=== PATIENT | male | born 1945 | race Caucasian/White ===

== ENCOUNTER → 2017-09-20 14:49 | Outpatient (CLI) | payer MEDICARE, SELFPAY ==
--- NOTE | 2017-09-20 14:51 | CT_ITS ---
STUDY: CTA CHEST REASON FOR EXAM: Male, 72 years old. Thyroidectomy. RADIATION DOSAGE (If Supplied By Facility): CTDIvol = ( 13.98 ) mGy, DLP = ( 804.88 ) mGycm TECHNIQUE: The examination was performed with the intravenous administration of 100 ml of Isovue 370 contrast material. Post-processing of the angiographic images was performed, with multiplanar reformation and 3D reconstruction. Individualized dose optimization techniques were used for this CT. COMPARISON: CT chest 07/27/2016 FINDINGS: Supraclavicular: The thyroid is surgically absent. No acute supraclavicular soft tissue process is evident. Thoracic body wall soft tissues: No acute process. Upper abdomen: Clustered small gallstones near the gallbladder neck with no inflammatory features of the gallbladder. Normal biliary tree. Mild pancreatic atrophy. No acute upper abdominal process is evident. Osseous structures: Mild kyphoscoliosis. Multilevel thoracic degenerative disc disease without stenosis. There is moderate mid to low cervical degenerative disc disease incompletely characterized, contributing to foraminal narrowing. The bones generally appear to be mildly sclerotic. This could reflect an underlying disorder of calcium metabolism. Clinically correlate. Mediastinum: Normal esophagus. No mass or lymphadenopathy. Cardiac: Normal heart size without effusion. Moderate three-vessel coronary calcifications. Aortic valve dense calcifications. Pulmonary arteries: Nondilated with no large central pulmonary bones and. Aorta: There is aneurysmal dilatation of the ascending aorta and proximal arch up to 4.4 cm with widely patent bovine cervical arch branching and minimal arch atherosclerosis. No dissection. Ectasia of the ascending aorta and the setting of aortic valve calcifications could potentially reflect the presence of aortic stenosis or underlying bicuspid aortic valve. Lungs: Punctate calcified pulmonary nodule in the deep sulcus of the left lung base. Noncalcified solid subpleural pulmonary nodule lateral left lung base 4.5 mm, stable. No suspicious lesions. Lungs are otherwise clear with mild underlying hyperlucency which may reflect mild COPD without loyd emphysematous features. The airways are normal. CT/CTA Chest W/WO Contrast IMPRESSION: Stable small left lower lobe pulmonary nodule is unchanged compared to imaging as far back as 2013. Aneurysmal ectasia of the ascending aorta and proximal arch has not substantially changed since imaging of at least 2012. Three-vessel coronary atherosclerosis and aortic valve calcifications. No other acute cardiopulmonary process is evident. Electronically Signed: Shine Marks, at 15:37 EDT Tel , Service support ,
[2017-09-20 15:00] LABS: CREATININE FINGERSTICK 1.4 mg/dL (0.70-1.30)
== END ==
PROVIDERS: Family Provider Internal Medicine; PCP Internal Medicine; Visit Provider Physician Assistant Medical
DX: I71.2 Thoracic aortic aneurysm, without rupture (principal)
CPT/HCPCS: 71275; Q9967

== ENCOUNTER → 2017-09-27 09:03 | Outpatient (CLI) | payer MEDICARE, SELFPAY ==
[2017-09-27 09:11] LABS: Bacteria 0 SEEN /hpf (None Seen); Mucous, Urine 0 SEEN /hpf (<or=2+); Red Blood Cells-Urine 0 SEEN /hpf (0-5); Squamous Epithelial Cells - UA 0 SEEN /hpf (0-5); White Blood Cells 0 SEEN /hpf (0-5)
[2017-09-27 10:18] LABS: Absolute Lymphocyte Count 1.37 X10^3/ul (0.83-4.51); Absolute Neutrophil Count 3.3 X10^3/uL (2.0-7.7); Basophil# 0.01 X10^3/uL; Basophil% 0.2 % (0-1); Eosinophil# 0.18 X10^3/uL; Eosinophils% 3.4 % (0-5); Hematocrit 35.3 % (40-54); Hemoglobin 11.4 g/dl (13.0-16.5); Lymphocyte # 1.37 X10^3/ul (4.0); Lymphocyte % 25.9 % (19-41); Mean Corp Hgb Conc 32.3 g/gl (32-36); Mean Corpuscular Hgb 29.7 pg (27.0-32.0); Mean Corpuscular Volume 91.9 fL (80-94); Mean Platelet Vol. 10.1 fl (6.2-12.0); Monocyte# 0.39 X10^3/uL; Monocyte% 7.4 % (0-10); Neutrophil # 3.33 X10^3/uL (2.7-7.7); Neutrophil % 62.9 % (47-70); Platelet Count 189 K/mm3 (150-450); RBC Distribution Width CV 14.4 % (11.6-14.6); RBC Distribution Width SD 48.4 fl (35.1-43.9); Red Blood Count 3.84 M/mm3 (4.6-6.2); White Blood Count 5.3 K/mm3 (4.4-11.0)
[2017-09-27 10:24] LABS: Color, Urine Yellow (Yellow); Glucose, Dipstick Normal (Normal); Ketone-Dipstick Negative (Negative); Leukocyte Esterase-Dipstick Negative /ul (Negative); Nitrite-Dipstick Negative (Negative); Occult Blood-Urine Negative /ul (Negative); Protein-Dipstick Negative (Negative); Urine Bilirubin Dipstick Negative (Negative); Urine Clarity Clear (Clear); Urine Urobilinogen Normal (Normal)
[2017-09-27 10:26] LABS: POSITIVE COUNT NO; POSITIVE DIFFERENTIAL NO; POSITIVE MORPHOLOGY NO
[2017-09-27 10:47] LABS: Microalbumin,Random Urine 6.7 mg/L (NO RANGE EST.); Microalbumin:Creatinine Ratio 10.6 mg/g CRE (<30 mg/g CRE)
[2017-09-27 10:50] LABS: ALB/GLOB Ratio 1.2 RATIO (0.9-2.4); AST(SGOT) 16 U/L (15-37); Alanine Aminotransfer ALT/SGPT 32 U/L (16-61); Albumin, Serum 3.7 g/dL (3.2-5.0); Alkaline Phosphatase 68 U/L (45-117); Anion Gap 5 (5-15); BUN 38 mg/dL (7-18); BUN/Creat Ratio 23.9 RATIO (10-20); Calcium,Total 8.9 mg/dL (8.5-10.1); Chloride 108 mmol/L (98-107); Cholesterol 145 mg/dL (200); Creatinine, Serum 1.59 mg/dL (0.70-1.30); EST Glomerular Filtration Rate 45 mL/min (>60); Est Glom Filt Rate - Afr Amer 55 mL/min (>60); Globulin 3.2 g/dL (2.2-4.2); Glucose 125 mg/dL (74-106); High Density Lipoprotein 41 mg/dL; PSA,Total- Diagnostic 3.41 ng/mL (0.0-4.0); Potassium 5.1 mmol/L (3.5-5.1); Protein, Total 6.9 g/dL (6.4-8.2); Sodium Level 140 mmol/L (136-145); Thyroid Stim Hormone (TSH) 0.64 uIU/mL (0.358-3.74); Triglycerides 207 mg/dL; Very Low Density Lipoprotein 41 mg/dL (5-40)
== END ==
PROVIDERS: Family Provider Internal Medicine; PCP Internal Medicine; Visit Provider Internal Medicine
DX: E03.9 Hypothyroidism, unspecified (principal); I11.9 Hypertensive heart disease without heart failure; E78.00 Pure hypercholesterolemia, unspecified; R97.20 Elevated prostate specific antigen [PSA]
CPT/HCPCS: 36415; 80053; 80061; 81001; 82043; 82570; 84153; 84443; 85025

== ENCOUNTER → 2018-04-03 08:20 | Outpatient (CLI) | payer MEDICARE, SELFPAY ==
[2017-09-05 11:03] VITALS: BMI 34.8
[2018-04-03 08:27] LABS: Bacteria 0 SEEN /hpf (None Seen); Mucous, Urine 0 SEEN /hpf (<or=2+); Red Blood Cells-Urine 0 SEEN /hpf (0-5); White Blood Cells 0 SEEN /hpf (0-5)
[2018-04-03 10:18] LABS: Absolute Lymphocyte Count 1.23 X10^3/ul (0.83-4.51); Basophil# 0.02 X10^3/uL; Basophil% 0.4 % (0-1); Eosinophil# 0.25 X10^3/uL; Eosinophils% 5.3 % (0-5); Hematocrit 38.1 % (40-54); Hemoglobin 11.9 g/dl (13.0-16.5); Lymphocyte # 1.23 X10^3/ul (4.0); Lymphocyte % 25.9 % (19-41); Mean Corp Hgb Conc 31.2 g/gl (32-36); Mean Corpuscular Hgb 29.4 pg (27.0-32.0); Mean Corpuscular Volume 94.1 fL (80-94); Mean Platelet Vol. 9.7 fl (6.2-12.0); Monocyte# 0.25 X10^3/uL; Monocyte% 5.3 % (0-10); Neutrophil # 2.98 X10^3/uL (2.7-7.7); Neutrophil % 62.7 % (47-70); Platelet Count 179 K/mm3 (150-450); RBC Distribution Width CV 14.4 % (11.6-14.6); RBC Distribution Width SD 49.2 fl (35.1-43.9); Red Blood Count 4.05 M/mm3 (4.6-6.2); White Blood Count 4.8 K/mm3 (4.4-11.0)
[2018-04-03 10:27] LABS: POSITIVE COUNT NO; POSITIVE DIFFERENTIAL NO; POSITIVE MORPHOLOGY NO
[2018-04-03 10:38] LABS: Color, Urine Yellow (Yellow); Glucose, Dipstick 1000 mg/dl (Normal); Ketone-Dipstick Negative (Negative); Leukocyte Esterase-Dipstick Negative /ul (Negative); Nitrite-Dipstick Negative (Negative); Occult Blood-Urine Negative /ul (Negative); Protein-Dipstick Negative (Negative); Urine Bilirubin Dipstick Negative (Negative); Urine Clarity Clear (Clear); Urine Urobilinogen Normal (Normal); Urine pH 6.5 (5.0 - 8.0)
[2018-04-03 10:47] LABS: Squamous Epithelial Cells - UA 0-5 SEEN /hpf (0-5)
[2018-04-03 10:52] LABS: ALB/GLOB Ratio 1.1 RATIO (0.9-2.4); AST(SGOT) 18 U/L (15-37); Alanine Aminotransfer ALT/SGPT 29 U/L (16-61); Albumin, Serum 3.7 g/dL (3.2-5.0); Alkaline Phosphatase 71 U/L (45-117); Anion Gap 8 (5-15); BUN 31 mg/dL (7-18); BUN/Creat Ratio 17.4 RATIO (10-20); Calcium,Total 8.6 mg/dL (8.5-10.1); Chloride 108 mmol/L (98-107); Cholesterol 172 mg/dL (200); Creatinine, Serum 1.78 mg/dL (0.70-1.30); EST Glomerular Filtration Rate 40 mL/min (>60); Est Glom Filt Rate - Afr Amer 48 mL/min (>60); Globulin 3.3 g/dL (2.2-4.2); Glucose 141 mg/dL (74-106); High Density Lipoprotein 42 mg/dL; Potassium 4.5 mmol/L (3.5-5.1); Sodium Level 143 mmol/L (136-145); Thyroid Stim Hormone (TSH) 1.69 uIU/mL (0.358-3.74); Triglycerides 235 mg/dL; Very Low Density Lipoprotein 47 mg/dL (5-40)
[2018-04-03 12:12] LABS: Microalbumin,Random Urine 7.8 mg/L (NO RANGE EST.); Microalbumin:Creatinine Ratio 9.2 mg/g CRE (<30 mg/g CRE)
== END ==
PROVIDERS: Family Provider Internal Medicine; PCP Internal Medicine; Referring Provider Internal Medicine; Visit Provider Internal Medicine
DX: N28.9 Disorder of kidney and ureter, unspecified (principal); E11.9 Type 2 diabetes mellitus without complications
CPT/HCPCS: 36415; 80053; 80061; 81001; 82043; 82570; 84443; 85025

== ENCOUNTER → 2018-04-25 08:46 | Outpatient (CLI) | payer MEDICARE, SELFPAY ==
[2017-09-05 11:03] VITALS: BMI 34.8
[2018-04-25 10:38] LABS: PSA,Total- Diagnostic 5.68 ng/mL (0.0-4.0)
== END ==
PROVIDERS: Family Provider Internal Medicine; PCP Internal Medicine; Referring Provider Urology; Visit Provider Urology
DX: R97.20 Elevated prostate specific antigen [PSA] (principal)
CPT/HCPCS: 36415; 84153

== ENCOUNTER → 2018-10-16 09:02 | Outpatient (CLI) | payer MEDICARE, SELFPAY ==
[2017-09-05 11:03] VITALS: BMI 34.8
[2018-10-16 09:09] LABS: Bacteria 0 SEEN /hpf (None Seen); Mucous, Urine 0 SEEN /hpf (<or=2+); Red Blood Cells-Urine 0 SEEN /hpf (0-5); White Blood Cells 0 SEEN /hpf (0-5)
[2018-10-16 09:57] LABS: Absolute Lymphocyte Count 0.98 X10^3/uL (0.83-4.51); Absolute Neutrophil Count 3.5 X10^3/uL (2.0-7.7); Basophil# 0.02 X10^3/uL; Basophil% 0.4 % (0-1); Eosinophil# 0.24 X10^3/uL; Eosinophils% 4.8 % (0-5); Hematocrit 36.7 % (40-54); Hemoglobin 11.8 g/dL (13.0-16.5); Lymphocyte # 0.98 X10^3/ul (4.0); Lymphocyte % 19.4 % (19-41); Mean Corp Hgb Conc 32.2 g/dL (32-36); Mean Corpuscular Hgb 30.6 pg (27.0-32.0); Mean Corpuscular Volume 95.1 fL (80-94); Mean Platelet Vol. 9.9 fl (6.2-12.0); Monocyte# 0.32 X10^3/uL; Monocyte% 6.3 % (0-10); NRBC Flagged by Analyzer 0 % (0-5); Neutrophil # 3.45 X10^3/uL (2.7-7.7); Neutrophil % 68.5 % (47-70); Platelet Count 158 K/mm3 (150-450); RBC Distribution Width CV 13.6 % (11.6-14.6); RBC Distribution Width SD 47.4 fl (35.1-43.9); Red Blood Count 3.86 M/mm3 (4.6-6.2)
[2018-10-16 09:58] LABS: Color, Urine Yellow (Yellow); Glucose, Dipstick 1000 mg/dl (Normal); Ketone-Dipstick Negative (Negative); Leukocyte Esterase-Dipstick Negative /ul (Negative); Nitrite-Dipstick Negative (Negative); Occult Blood-Urine Negative /ul (Negative); Protein-Dipstick Negative (Negative); Urine Bilirubin Dipstick Negative (Negative); Urine Clarity Sl. Cloudy (Clear); Urine Urobilinogen Normal (Normal)
[2018-10-16 10:05] LABS: Squamous Epithelial Cells - UA 0-5 SEEN /hpf (0-5)
[2018-10-16 10:21] LABS: Microalbumin,Random Urine 10.3 mg/L (NO RANGE EST.); Microalbumin:Creatinine Ratio 15.7 mg/g CRE (<30 mg/g CRE)
[2018-10-16 10:36] LABS: Vitamin D,25 Hydroxy 33.7 ng/mL (29.95-100.01)
[2018-10-16 10:50] LABS: ALB/GLOB Ratio 1.2 RATIO (0.9-2.4); AST(SGOT) 14 U/L (15-37); Alanine Aminotransfer ALT/SGPT 20 U/L (16-61); Albumin, Serum 3.6 g/dL (3.2-5.0); Alkaline Phosphatase 65 U/L (45-117); Anion Gap 9 (5-15); BUN 41 mg/dL (7-18); BUN/Creat Ratio 23.2 RATIO (10-20); Calcium,Total 8.7 mg/dL (8.5-10.1); Chloride 107 mmol/L (98-107); Creatinine, Serum 1.77 mg/dL (0.70-1.30); EST Glomerular Filtration Rate 40 mL/min (>60); Est Glom Filt Rate - Afr Amer 48 mL/min (>60); Globulin 3.1 g/dL (2.2-4.2); Glucose 130 mg/dL (74-106); PSA,Total- Diagnostic 4.34 ng/mL (0.0-4.0); Potassium 4.6 mmol/L (3.5-5.1); Protein, Total 6.7 g/dL (6.4-8.2); Sodium Level 141 mmol/L (136-145); T4 Free Direct 0.62 ng/dL (0.76-1.46)
[2018-10-17 16:07] LABS: CHOLESTEROL TOTAL 183 mg/dL (100-199); HDL-C 41 mg/dL (>39); HDL-P TOTAL 32.7 umol/L (>=30.5); SMALL LDL-P 415 nmol/L (<=527); TRIGLYCERIDES 277 mg/dL (0-149)
[2018-10-18 11:27] LABS: INSULIN RESISTANCE SCORE 66 (<=45); LDL SIZE 20.3 nm (>20.5); LDL-C 87 mg/dL (0-99); LDL-P 827 nmol/L (<1000)
== END ==
PROVIDERS: Family Provider Internal Medicine; PCP Internal Medicine; Referring Provider Urology; Visit Provider Urology
DX: I11.9 Hypertensive heart disease without heart failure (principal); E03.9 Hypothyroidism, unspecified; E55.9 Vitamin D deficiency, unspecified; E78.00 Pure hypercholesterolemia, unspecified; R97.20 Elevated prostate specific antigen [PSA]
CPT/HCPCS: 36415; 80053; 80061; 81001; 82043; 82306; 82570; 83704; 84153; 84439; 84443; 84481; 85025

== ENCOUNTER → 2018-11-07 13:16 | Outpatient (CLI) | payer MEDICARE, SELFPAY ==
[2018-10-18 10:10] VITALS: BMI 36.0
--- NOTE | 2018-11-07 13:19 | CT_ITS ---
STUDY: CT CHEST WITH CONTRAST REASON FOR EXAM: Male, 73 years old. Follow-up thoracic and abdominal aortic aneurysm. TECHNIQUE: Transaxial imaging was performed following intravenous administration of 100CC IV Isovue 370. Multiplanar coronal and sagittal images were reformatted. Individualized dose optimization techniques were used for this CT. COMPARISON: CTA of the chest, September 20, 2017. FINDINGS: The lungs are normal. There is no demonstrated pleural abnormality. Normal heart and pericardium. There are calcifications of the coronary arteries. Normal mediastinum. Normal hilar regions. Normal enhanced pulmonary arteries. There are calcifications at the aortic valve. The thoracic aorta demonstrates mild tortuosity and atherosclerotic changes. The ascending aorta measures 4.4 cm in diameter and tapers into the arch. There is no dissection.. There are multi-level degenerative changes of the thoracic spine. No evidence of gallstones without acute inflammatory change. The upper abdomen is otherwise grossly normal. IMPRESSION: 1. The ascending thoracic aorta measuring 4.4 cm in diameter. There is no aneurysm. 2. Mild atherosclerotic changes of the thoracic aorta and coronary arteries. 3. No evidence of pulmonary embolus. 4. No evidence for acute cardiopulmonary disease. Electronically Signed: Roberth Mclaughlin DO at 23:03 EDT Tel [phone], Service support , STUDY: CTA OF THE ABDOMINAL AORTA REASON FOR EXAM: Male, 73 years old. Follow-up abdominal aortic aneurysm. RADIATION DOSAGE (If Supplied By Facility): CTDIvol = ( 17.14 ) mGy, DLP = ( 1418.41 ) mGycm TECHNIQUE: Axial CT angiography multi-detector data acquisition was obtained from the diaphragm to the ischial tuberosities following intravenous administration of 100CC IV Isovue 370. Axial images and MIP images were reconstructed from the axial data set. Post-processing of the angiographic images was performed, with multiplanar reformation and 3D reconstruction. Individualized dose optimization techniques were used for this CT. TECHNICAL QUALITY: Good COMPARISON: CT of the chest, November 07, 2018. Descriptors of Narrowing: None (0%) Mild (< 50%) Moderate (50-70%) Severe (70-90%) Subtotal/Total Occlusion (90-100%) Non-Evaluable (technically non-diagnostic FINDINGS: Abdominal aorta: There is minimal atherosclerotic changes of the abdominal aorta. There is no evidence of dissection or aneurysm. There is no stricture. Celiac and superior mesenteric arteries: No demonstrated narrowing. Inferior mesenteric artery: No demonstrated narrowing. Right renal artery(arteries): No demonstrated narrowing. Left renal artery(arteries): Minimal atherosclerotic changes at the origin of left renal artery without significant Right common iliac artery: Minimal atherosclerotic changes without stenosis. Right external iliac artery: No demonstrated narrowing. Right internal iliac artery: Atherosclerotic changes with mild stenosis. Left common iliac artery: Mild atherosclerotic changes without stenosis. Left external iliac artery: No demonstrated narrowing. Left internal iliac artery: No demonstrated narrowing.th mild stenosis. Lung bases are clear. The heart is normal in size. Normal liver. There are multiple gallstones in otherwise normal gallbladder. There is no biliary ductal dilatation. Normal spleen. Normal pancreas. Normal adrenal glands. There are small cortical cyst right kidney without enhancing mass or renal calculi. There is no hydronephrosis. Normal right ureter. Normal left kidney. Normal left ureter. Normal IVC and retroperitoneum. Normal stomach. Normal small bowel. There is scattered colonic diverticuli without acute inflammatory change. Normal appendix. Normal urinary bladder. The prostate is enlarged with multiple brachytherapy seeds. There is no pelvic lymphadenopathy. No free air or free fluid seen within the peritoneal cavity. There is evidence of bilateral inguinal herniorrhaphies. There are degenerative changes of the lumbar spine. There is evidence of a right total hip arthroplasty. CT/CTA Abdomen W/WO Contrast IMPRESSION: 1. No evidence for abdominal aortic aneurysm or dissection. 2. Gallstones without acute cholecystitis. 3. Brachytherapy seeds within the enlarged prostate. 4. Right artificial hip. 5. Degenerative changes of the lumbar spine. Electronically Signed: Roberth Mclaughlin DO at 23:06 EDT Tel [phone], Service support ,
--- NOTE | 2018-11-07 13:24 | CT_ITS ---
STUDY: CT CHEST WITH CONTRAST REASON FOR EXAM: Male, 73 years old. Follow-up thoracic and abdominal aortic aneurysm. TECHNIQUE: Transaxial imaging was performed following intravenous administration of 100CC IV Isovue 370. Multiplanar coronal and sagittal images were reformatted. Individualized dose optimization techniques were used for this CT. COMPARISON: CTA of the chest, September 20, 2017. FINDINGS: The lungs are normal. There is no demonstrated pleural abnormality. Normal heart and pericardium. There are calcifications of the coronary arteries. Normal mediastinum. Normal hilar regions. Normal enhanced pulmonary arteries. There are calcifications at the aortic valve. The thoracic aorta demonstrates mild tortuosity and atherosclerotic changes. The ascending aorta measures 4.4 cm in diameter and tapers into the arch. There is no dissection.. There are multi-level degenerative changes of the thoracic spine. No evidence of gallstones without acute inflammatory change. The upper abdomen is otherwise grossly normal. IMPRESSION: 1. The ascending thoracic aorta measuring 4.4 cm in diameter. There is no aneurysm. 2. Mild atherosclerotic changes of the thoracic aorta and coronary arteries. 3. No evidence of pulmonary embolus. 4. No evidence for acute cardiopulmonary disease. Electronically Signed: Roberth Mclaughlin DO at 23:03 EDT Tel [phone], Service support , STUDY: CTA OF THE ABDOMINAL AORTA REASON FOR EXAM: Male, 73 years old. Follow-up abdominal aortic aneurysm. RADIATION DOSAGE (If Supplied By Facility): CTDIvol = ( 17.14 ) mGy, DLP = ( 1418.41 ) mGycm TECHNIQUE: Axial CT angiography multi-detector data acquisition was obtained from the diaphragm to the ischial tuberosities following intravenous administration of 100CC IV Isovue 370. Axial images and MIP images were reconstructed from the axial data set. Post-processing of the angiographic images was performed, with multiplanar reformation and 3D reconstruction. Individualized dose optimization techniques were used for this CT. TECHNICAL QUALITY: Good COMPARISON: CT of the chest, November 07, 2018. Descriptors of Narrowing: None (0%) Mild (< 50%) Moderate (50-70%) Severe (70-90%) Subtotal/Total Occlusion (90-100%) Non-Evaluable (technically non-diagnostic FINDINGS: Abdominal aorta: There is minimal atherosclerotic changes of the abdominal aorta. There is no evidence of dissection or aneurysm. There is no stricture. Celiac and superior mesenteric arteries: No demonstrated narrowing. Inferior mesenteric artery: No demonstrated narrowing. Right renal artery(arteries): No demonstrated narrowing. Left renal artery(arteries): Minimal atherosclerotic changes at the origin of left renal artery without significant Right common iliac artery: Minimal atherosclerotic changes without stenosis. Right external iliac artery: No demonstrated narrowing. Right internal iliac artery: Atherosclerotic changes with mild stenosis. Left common iliac artery: Mild atherosclerotic changes without stenosis. Left external iliac artery: No demonstrated narrowing. Left internal iliac artery: No demonstrated narrowing.th mild stenosis. Lung bases are clear. The heart is normal in size. Normal liver. There are multiple gallstones in otherwise normal gallbladder. There is no biliary ductal dilatation. Normal spleen. Normal pancreas. Normal adrenal glands. There are small cortical cyst right kidney without enhancing mass or renal calculi. There is no hydronephrosis. Normal right ureter. Normal left kidney. Normal left ureter. Normal IVC and retroperitoneum. Normal stomach. Normal small bowel. There is scattered colonic diverticuli without acute inflammatory change. Normal appendix. Normal urinary bladder. The prostate is enlarged with multiple brachytherapy seeds. There is no pelvic lymphadenopathy. No free air or free fluid seen within the peritoneal cavity. There is evidence of bilateral inguinal herniorrhaphies. There are degenerative changes of the lumbar spine. There is evidence of a right total hip arthroplasty. CT/Chest WITH Contrast IMPRESSION: 1. No evidence for abdominal aortic aneurysm or dissection. 2. Gallstones without acute cholecystitis. 3. Brachytherapy seeds within the enlarged prostate. 4. Right artificial hip. 5. Degenerative changes of the lumbar spine. Electronically Signed: Roberth Mclaughlin DO at 23:06 EDT Tel [phone], Service support ,
--- NOTE | 2018-11-07 13:46 | ECHOCS_ITS ---
Reason For Study: MURMUR Procedure This was a 2D Doppler, Color Flow transthoracic echocardiogram. The study was technically difficult. Contrast injection was performed. Exam performed in department. Left Ventricle Normal LV size. Moderate to severe concentric LVH. Left ventricular systolic function is normal. The estimated ejection fraction is 60 %. There is evidence of diastolic dysfunction. No regional wall motion abnormalities noted. Right Ventricle Normal RV size. Normal systolic function. Atria The left atrium is mildly enlarged. Normal right atrium. No doppler evidence for ASD. Mitral Valve There is no mitral annular calcification. Anterior leaflet diffuse mitral valve thickening. Mild focal mitral valve calcification of the anterior leaflet. Trivial mitral valve insufficiency. Tricuspid Valve Normal tricuspid valve. Trivial tricuspid valve insufficiency. Unable to estimate RV systolic pressure/pulmonary artery pressure due to technically difficult study. Aortic Valve Trisinus/trileaflet aortic valve. Mild diffuse aortic valve thickening. Mild diffuse aortic valve calcification. Moderate aortic stenosis. Mild (1+) aortic valve insufficiency. Pulmonic Valve The pulmonic valve is not well visualized. Trivial pulmonic valve insufficiency. Great Vessels Moderately dilated aortic root. Pericardium/Pleural No pericardial effusion. Medication 22 gauge I.V. with prn adaptor inserted into right arm. Diluted definity 4ml given slow IV push to enhance endocardial definition. MMode/2D Measurements & Calculations LVIDd: 3.9 cm IVSd: 2.0 cm LVOT diam: 2.0 cm LVIDs: 3.7 cm LVPWd: 1.4 cm RVDd: 3.2 cm FS: 4.8 % LVOT area: 3.1 cm2 Ao root diam: 4.5 cm LAV(MOD-bp): 92.3 ml LVAd ap4: 40.2 cm2 LAV(MOD-bp) Indexed: 37.8 ml/m2 EDV(MOD-sp4): 137.0 ml LAV(MOD-sp2): 86.7 ml EDV(sp4-el): 147.0 ml LAV(MOD-sp4): 97.2 ml LVAs ap4: 21.9 cm2 ESV(MOD-sp4): 52.9 ml ESV(sp4-el): 55.3 ml EF(MOD-sp4): 61.4 % EF(sp4-el): 62.4 % SV(MOD-sp4): 84.1 ml SV(sp4-el): 91.7 ml LA A4 area: 28.9 cm2 LA dimension(2D): 3.8 cm RA A4 area: 19.4 cm2 Time Measurements MV dec time: 0.38 sec Doppler Measurements & Calculations MV E max vasiliy: 78.6 cm/sec Lat Peak E' Vasiliy: 8.4 cm/sec Med Peak E' Vasiliy: 5.7 cm/sec MV A max vasiliy: 97.8 cm/sec E/E' lat: 9.4 E/E' med: 13.7 MV E/A: 0.80 Ao V2 max: 334.1 cm/sec AI max vasiliy: 389.4 cm/sec LV V1 max: 123.8 cm/sec Ao max P.8 mmHg AI max P.6 mmHg LV V1 max P.1 mmHg Ao V2 mean: 259.0 cm/sec AI dec slope: 226.4 cm/sec2 LV V1 mean P.4 mmHg Ao mean P.8 mmHg AI P1/2t: 503.8 msec LV V1 mean: 86.5 cm/sec Ao V2 VTI: 80.4 cm LV V1 VTI: 30.1 cm CHEMA(I,D): 1.2 cm2 CHEMA(V,D): 1.2 cm2 SV(LVOT): 93.4 ml PA V2 max: 95.1 cm/sec Interpretation Summary The study was technically difficult. Contrast injection was performed. Left ventricular systolic function is normal. The estimated ejection fraction is 60 %. Moderate to severe concentric LVH. The left atrium is mildly enlarged. Anterior leaflet diffuse mitral valve thickening. Mild focal mitral valve calcification of the anterior leaflet. Trivial mitral valve insufficiency. Trivial tricuspid valve insufficiency. Moderate aortic stenosis. Mild (1+) aortic valve insufficiency. Trivial pulmonic valve insufficiency. Moderately dilated aortic root. Unable to estimate RV systolic pressure/pulmonary artery pressure due to technically difficult study. There is evidence of diastolic dysfunction. Ordering Physician: Lance Phillips Referring Physician: LINDA NICOLE Performed By: Carrol Tenorio, RDCS, RVT
== END ==
PROVIDERS: Family Provider Internal Medicine; PCP Internal Medicine; Referring Provider Internal Medicine Cardiovascular Disease; Visit Provider Internal Medicine Cardiovascular Disease
DX: I25.10 Atherosclerotic heart disease of native coronary artery without angina pectoris (principal); I71.2 Thoracic aortic aneurysm, without rupture
CPT/HCPCS: 71260; 74175; 93306; Q9957; Q9967; A4216; C8929

== ENCOUNTER → 2018-12-06 12:05 | Outpatient (CLI) | payer MEDICARE, SELFPAY ==
[2018-10-18 10:10] VITALS: BMI 36.0
== END ==
PROVIDERS: Family Provider Internal Medicine; PCP Internal Medicine; Visit Provider Nurse Practitioner Adult Health
DX: R82.998 Other abnormal findings in urine (principal); R30.0 Dysuria
CPT/HCPCS: 87077; 87086; 87088; 87186

== ENCOUNTER → 2019-02-05 10:26 | Outpatient (CLI) | payer MEDICARE, SELFPAY ==
[2018-10-18 10:10] VITALS: BMI 36.0
[2019-02-05 12:31] LABS: PSA,Total- Diagnostic 5.71 ng/mL (0.0-4.0)
== END ==
PROVIDERS: Family Provider Internal Medicine; PCP Internal Medicine; Referring Provider Urology; Visit Provider Urology
DX: R97.20 Elevated prostate specific antigen [PSA] (principal)
CPT/HCPCS: 36415; 84153

== ENCOUNTER → 2019-07-31 08:20 | Outpatient (CLI) | payer MEDICARE, SELFPAY ==
[2018-10-18 10:10] VITALS: BMI 36.0
[2019-07-31 10:00] LABS: Absolute Lymphocyte Count 1.26 X10^3/uL (0.83-4.51); Basophil# 0.04 X10^3/uL; Basophil% 0.7 % (0-1); Eosinophil# 0.35 X10^3/uL; Eosinophils% 5.8 % (0-5); Hematocrit 37.3 % (40-54); Hemoglobin 11.6 g/dL (13.0-16.5); Lymphocyte # 1.26 X10^3/ul (4.0); Lymphocyte % 20.8 % (19-41); Mean Corp Hgb Conc 31.1 g/dL (32-36); Mean Corpuscular Hgb 29.4 pg (27.0-32.0); Mean Corpuscular Volume 94.4 fL (80-94); Mean Platelet Vol. 10.2 fl (6.2-12.0); Monocyte# 0.43 X10^3/uL; Monocyte% 7.1 % (0-10); NRBC Flagged by Analyzer 0 % (0-5); Neutrophil # 3.96 X10^3/uL (2.7-7.7); Neutrophil % 65.1 % (47-70); Platelet Count 186 K/mm3 (150-450); RBC Distribution Width CV 14.5 % (11.6-14.6); RBC Distribution Width SD 49.7 fl (35.1-43.9); Red Blood Count 3.95 M/mm3 (4.6-6.2); White Blood Count 6.1 K/mm3 (4.4-11.0)
[2019-07-31 10:11] LABS: Vitamin D,25 Hydroxy 54.4 ng/mL
[2019-07-31 10:33] LABS: ALB/GLOB Ratio 1.1 RATIO (0.9-2.4); AST(SGOT) 14 U/L (15-37); Alanine Aminotransfer ALT/SGPT 19 U/L (16-61); Albumin, Serum 3.6 g/dL (3.2-5.0); Alkaline Phosphatase 65 U/L (45-117); Anion Gap 7 (5-15); BUN 38 mg/dL (7-18); BUN/Creat Ratio 21.5 RATIO (10-20); Calcium,Total 8.8 mg/dL (8.5-10.1); Chloride 107 mmol/L (98-107); Cholesterol 162 mg/dL (200); Creatinine, Serum 1.77 mg/dL (0.70-1.30); EST Glomerular Filtration Rate 40 mL/min (>60); Est Glom Filt Rate - Afr Amer 48 mL/min (>60); Globulin 3.2 g/dL (2.2-4.2); Glucose 151 mg/dL (74-106); High Density Lipoprotein 39 mg/dL; PSA,Total- Diagnostic 5.15 ng/mL (0.0-4.0); Potassium 4.7 mmol/L (3.5-5.1); Protein, Total 6.8 g/dL (6.4-8.2); Sodium Level 141 mmol/L (136-145); Thyroid Stim Hormone (TSH) 0.79 uIU/mL (0.358-3.74); Triglycerides 268 mg/dL; Very Low Density Lipoprotein 54 mg/dL (5-40)
[2019-07-31 10:35] LABS: Microalbumin:Creatinine Ratio 21.7 mg/g CRE (<30 mg/g CRE)
== END ==
PROVIDERS: PCP Internal Medicine; Referring Provider Internal Medicine; Visit Provider Internal Medicine
DX: E55.9 Vitamin D deficiency, unspecified (principal); E03.9 Hypothyroidism, unspecified; R97.20 Elevated prostate specific antigen [PSA]; E11.65 Type 2 diabetes mellitus with hyperglycemia
CPT/HCPCS: 36415; 80053; 80061; 82043; 82306; 82570; 84153; 84443; 85025

== ENCOUNTER → 2019-10-26 08:18 | Outpatient (CLI) | payer MEDICARE, SELFPAY ==
[2019-10-19 09:09] VITALS: BMI 34.0
--- NOTE | 2019-10-26 08:51 | CT_ITS ---
STUDY: CT CHEST WITH CONTRAST REASON FOR EXAM: Male, 74 years old. TAA-yearly check. Hx of diabetes and HTN-both rx controlled. Heart stent RADIATION DOSAGE (If Supplied By Facility): CTDIvol = ( 16.93 ) mGy, DLP = ( 697.42 ) mGycm TECHNIQUE: Transaxial imaging was performed following intravenous administration of IV 100mL Isovue-370. Multiplanar coronal and sagittal images were reformatted. Individualized dose optimization techniques were used for this CT. COMPARISON: Including November 07, 2018 and July 08, 2015 FINDINGS: There is no focal infiltrate in the lungs. There is mild basilar atelectasis. There is a 0.4 cm subpleural nodule in the left mid chest. There are left lung granulomas. There is no demonstrated pleural abnormality. There are calcifications of the coronary arteries and endovascular stents. There are aortic valvular calcifications. Normal mediastinum. Normal hilar regions. Normal enhanced pulmonary arteries. There is atherosclerotic calcification of the aortic arch with tortuosity and elongation of the aortic arch and descending thoracic aorta. There is stable aneurysmal dilatation of the ascending aorta. The transverse diameter of the ascending aorta measures 48 mm''s. There are multi-level degenerative changes of the thoracic spine. There is degenerative change of the shoulders. There is splenomegaly. CT/Chest WITH Contrast IMPRESSION: Stable aneurysmal dilatation of the ascending aorta. Atherosclerotic calcifications. Granulomatous calcifications. Electronically Signed: Reji Christian MD at 9:51 EDT , Service support ,
[2019-10-26 09:00] LABS: CREATININE FINGERSTICK 1.4 mg/dL (0.70-1.30)
== END ==
PROVIDERS: PCP Internal Medicine; Referring Provider Internal Medicine Cardiovascular Disease; Visit Provider Internal Medicine Cardiovascular Disease
DX: I71.2 Thoracic aortic aneurysm, without rupture (principal); I25.10 Atherosclerotic heart disease of native coronary artery without angina pectoris; I35.0 Nonrheumatic aortic (valve) stenosis; I10 Essential (primary) hypertension; E78.00 Pure hypercholesterolemia, unspecified; Z95.5 Presence of coronary angioplasty implant and graft
CPT/HCPCS: 71260; Q9967

== ENCOUNTER → 2019-11-06 08:49 | Outpatient (CLI) | payer MEDICARE, SELFPAY ==
[2019-10-19 09:09] VITALS: BMI 34.0
--- NOTE | 2019-11-06 08:53 | ECHOCS_ITS ---
Reason For Study: Murmur Procedure This was a 2D Doppler, Color Flow transthoracic echocardiogram. The study was technically difficult. Contrast injection was performed. Exam performed in department. Left Ventricle Normal LV size. Severe concentric left ventricular hypertrophy. Left ventricular systolic function is normal. The estimated ejection fraction is 55 %. Diastolic function is indeterminate. No regional wall motion abnormalities noted. Right Ventricle Normal RV size. Normal systolic function. Atria The left atrium is mildly enlarged. Normal right atrium. No doppler evidence for ASD. Mitral Valve There is no mitral annular calcification. Anterior leaflet diffuse mitral valve thickening. Mild focal mitral valve calcification of the anterior leaflet. Trivial mitral valve insufficiency. Tricuspid Valve Normal tricuspid valve. Trivial tricuspid valve insufficiency. Unable to estimate RV systolic pressure/pulmonary artery pressure due to technically difficult study. Aortic Valve Trisinus/trileaflet aortic valve. Mild diffuse aortic valve thickening. Moderate diffuse aortic valve calcification. Moderate to severe aortic valve stenosis. Mild (1+) aortic valve insufficiency. Pulmonic Valve The pulmonic valve is not well visualized. Great Vessels Moderately dilated aortic root. Pericardium/Pleural No pericardial effusion. Medication 22 gauge I.V. with prn adaptor inserted into right arm. Diluted definity 3ml given slow IV push to enhance endocardial definition. MMode/2D Measurements & Calculations LVIDd: 5.0 cm IVSd: 1.6 cm LVOT diam: 2.0 cm LVIDs: 3.8 cm LVPWd: 1.5 cm RVDd: 3.7 cm FS: 23.5 % LVOT area: 3.2 cm2 Ao root diam: 4.5 cm LAV(MOD-bp): 60.6 ml LA A4 area: 20.1 cm2 LA dimension: 3.6 cm LAV(MOD-bp) Indexed: 25.6 ml/m2 LAV(MOD-sp2): 63.7 ml LAV(MOD-sp4): 50.5 ml RA A4 area: 15.9 cm2 Time Measurements MV dec time: 0.29 sec Doppler Measurements & Calculations MV E max vasiliy: 55.9 cm/sec Lat Peak E' Vasiliy: 8.3 cm/sec Med Peak E' Vasiliy: 5.6 cm/sec MV A max vasiliy: 84.6 cm/sec E/E' lat: 6.8 E/E' med: 10.1 MV E/A: 0.66 MV V2 max: 98.4 cm/sec MV P1/2t max vasiliy: 83.3 cm/sec Ao V2 max: 389.5 cm/sec MV max P.9 mmHg MV P1/2t: 81.2 msec Ao max P.7 mmHg MV V2 mean: 50.2 cm/sec MV dec slope: 300.4 cm/sec2 Ao V2 mean: 282.3 cm/sec MV mean P.3 mmHg Ao mean P.8 mmHg MV V2 VTI: 29.1 cm MVA(P1/2t): 2.7 cm2 Ao V2 VTI: 102.0 cm MVA(VTI): 2.6 cm2 CHEMA(I,D): 0.74 cm2 CHEMA(V,D): 0.80 cm2 AI max vasiliy: 385.7 cm/sec LV V1 max: 96.9 cm/sec SV(LVOT): 75.4 ml AI max P.5 mmHg LV V1 max P.8 mmHg AI dec slope: 179.6 cm/sec2 LV V1 mean P.9 mmHg AI P1/2t: 628.9 msec LV V1 mean: 63.9 cm/sec LV V1 VTI: 23.4 cm PA V2 max: 85.4 cm/sec Interpretation Summary The study was technically difficult. Contrast injection was performed. Left ventricular systolic function is normal. The estimated ejection fraction is 55 %. Severe concentric left ventricular hypertrophy. The left atrium is mildly enlarged. Anterior leaflet diffuse mitral valve thickening. Mild focal mitral valve calcification of the anterior leaflet. Trivial mitral valve insufficiency. Trivial tricuspid valve insufficiency. Moderate to severe aortic valve stenosis. Mild (1+) aortic valve insufficiency. Moderately dilated aortic root. (approximately 4.5 cm) Unable to estimate RV systolic pressure/pulmonary artery pressure due to technically difficult study. Diastolic function is indeterminate. Ordering Physician: Lance Phillips Referring Physician: Anette Helton M.D. Performed By: Surinder Lechuga RCS
== END ==
PROVIDERS: PCP Internal Medicine; Referring Provider Internal Medicine Cardiovascular Disease; Visit Provider Internal Medicine Cardiovascular Disease
DX: I25.10 Atherosclerotic heart disease of native coronary artery without angina pectoris (principal); I71.2 Thoracic aortic aneurysm, without rupture; I35.0 Nonrheumatic aortic (valve) stenosis; I10 Essential (primary) hypertension; E78.00 Pure hypercholesterolemia, unspecified; Z95.5 Presence of coronary angioplasty implant and graft
CPT/HCPCS: 93306; Q9957; A4216; C8929

== ENCOUNTER → 2020-02-08 08:31 | Outpatient (CLI) | payer MEDICARE, SELFPAY ==
[2019-11-07 11:29] VITALS: BMI 33.7
[2020-02-08 10:13] LABS: Color, Urine Yellow (Yellow); Glucose, Dipstick 1000 mg/dl (Normal); Ketone-Dipstick Negative (Negative); Leukocyte Esterase-Dipstick 500 /ul (Negative); Nitrite-Dipstick Positive (Negative); Occult Blood-Urine 25 /ul (Negative); Protein-Dipstick 30 mg/dl (Negative); Urine Bilirubin Dipstick Negative (Negative); Urine Clarity Cloudy (Clear); Urine Urobilinogen Normal (Normal); Urine pH 6.5 (5.0 - 8.0)
[2020-02-08 10:14] LABS: Absolute Lymphocyte Count 1.45 X10^3/uL (0.83-4.51); Absolute Neutrophil Count 3.9 X10^3/uL (2.0-7.7); Basophil# 0.03 X10^3/uL; Basophil% 0.5 % (0-1); Eosinophils% 4.9 % (0-5); Hematocrit 41.2 % (40-54); Hemoglobin 13.1 g/dL (13.0-16.5); Lymphocyte # 1.45 X10^3/ul (4.0); Lymphocyte % 23.6 % (19-41); Mean Corp Hgb Conc 31.8 g/dL (32-36); Mean Corpuscular Hgb 30.5 pg (27.0-32.0); Mean Corpuscular Volume 95.8 fL (80-94); Mean Platelet Vol. 10.5 fl (6.2-12.0); Monocyte# 0.45 X10^3/uL; Monocyte% 7.3 % (0-10); NRBC Flagged by Analyzer 0 % (0-5); Neutrophil # 3.85 X10^3/uL (2.7-7.7); Neutrophil % 62.7 % (47-70); Platelet Count 184 K/mm3 (150-450); RBC Distribution Width CV 13.5 % (11.6-14.6); RBC Distribution Width SD 47.8 fl (35.1-43.9); White Blood Count 6.1 K/mm3 (4.4-11.0)
[2020-02-08 10:29] LABS: Vitamin D,25 Hydroxy 52.5 ng/mL
[2020-02-08 10:38] LABS: ALB/GLOB Ratio 1.2 RATIO (0.9-2.4); AST(SGOT) 13 U/L (15-37); Alanine Aminotransfer ALT/SGPT 22 U/L (16-61); Albumin, Serum 3.7 g/dL (3.2-5.0); Alkaline Phosphatase 86 U/L (45-117); Anion Gap 6 (5-15); BUN 46 mg/dL (7-18); BUN/Creat Ratio 22.1 RATIO (10-20); Calcium,Total 8.7 mg/dL (8.5-10.1); Chloride 105 mmol/L (98-107); Cholesterol 207 mg/dL (200); Creatinine, Serum 2.08 mg/dL (0.70-1.30); EST Glomerular Filtration Rate 33 mL/min (>60); Est Glom Filt Rate - Afr Amer 40 mL/min (>60); Globulin 3.2 g/dL (2.2-4.2); Glucose 190 mg/dL (74-106); High Density Lipoprotein 40 mg/dL; Potassium 4.5 mmol/L (3.5-5.1); Protein, Total 6.9 g/dL (6.4-8.2); Sodium Level 139 mmol/L (136-145); Thyroid Stim Hormone (TSH) 1.71 uIU/mL (0.358-3.74); Triglycerides 477 mg/dL
[2020-02-08 10:53] LABS: Microalbumin,Random Urine 56.2 mg/L (NO RANGE EST.); Microalbumin:Creatinine Ratio 80.2 mg/g CRE (<30 mg/g CRE)
[2020-02-08 13:28] LABS: Mucous, Urine 0 SEEN /hpf (<or=2+)
[2020-02-08 13:59] LABS: Red Blood Cells-Urine 10-25 SEEN /hpf (0-5); White Blood Cells >100 SEEN /hpf (0-5)
[2020-02-08 14:00] LABS: Bacteria 1+ /hpf (None Seen); Squamous Epithelial Cells - UA 0-5 SEEN /hpf (0-5)
== END ==
PROVIDERS: PCP Internal Medicine; Referring Provider Internal Medicine; Visit Provider Internal Medicine
DX: E78.00 Pure hypercholesterolemia, unspecified (principal); E55.9 Vitamin D deficiency, unspecified; E11.65 Type 2 diabetes mellitus with hyperglycemia; E03.9 Hypothyroidism, unspecified
CPT/HCPCS: 36415; 80053; 80061; 81001; 81002; 82043; 82306; 82570; 84443; 85025

== ENCOUNTER → 2020-09-01 10:54 | Outpatient (CLI) | payer MEDICARE, SELFPAY ==
[2019-11-07 11:29] VITALS: BMI 33.7
[2020-09-01 11:09] LABS: Potassium 4.6 mmol/L (3.5-5.1)
== END ==
PROVIDERS: PCP Internal Medicine; Visit Provider Internal Medicine
DX: E87.5 Hyperkalemia (principal)
CPT/HCPCS: 84132

== ENCOUNTER 2020-12-25 10:24 | Day surgery (SDC) | payer MEDICARE, SELFPAY ==
[2020-12-25] VITALS (7 sets, daily range): BP systolic 108–120; BP diastolic 56–69; PULSE 60–80; RESP 16–18; TEMP 36.3–36.9; O2SAT 97–100; BMI 32.2
[2020-12-25] MEDS: Lactated Ringers 1,000 ML 100 ML IV (11:09)
--- NOTE | 2020-12-25 11:30 | IMM_PTH ---
PATIENT: NICK NAVARRO LOC: EN U#:[id number] AGE/SX: 75/M ROOM: RE12/25/[address]: Dr. Feliberto Castro DO : 1945 BED: DIS: 12/25/2020 SPEC #: [id number] RECD: 12/26/20 09:56 STATUS: OLAYINKA REQ #: [id number] ESTELA: 12/25/20 11:[address]: Feliberto Castro DEPT: IMMUNOHISTOCHEMISTRY RECD BY: Rosalie Mcclellan ENTERED: 12/26/20 09:57 SP TYPE: IMMUNO OTHR DR: Dr. Anette Helton DO Tissues: A - Stomach, NOS Procedures: H Pylori (initial) PHYSICIAN & INSTITUTION [place] [id number] SPECIMEN INFORMATION: Tissue Source: B ? Gastric antrum Clinical Info: Abdominal pain, bloating, diarrhea Specimen Number: [id number] CPT code: 36120 METHODOLOGY: Deparaffinized sections of prefer/formalin-fixed tissue or PAP/DQ stained slides are incubated with monoclonal/polyclonal antibodies/oligonucleotide probes. Localization is made via biotin free immunoperoxidase method. Appropriate controls are performed and reacted as expected. Results on target cell population are indicated in the following table: RESULTS: ANTIBODY / CLONE RESULT Block B H Pylori (polyclonal) negative These tests were developed and their performance characteristics determined by [facility]. They may not have been cleared or approved by the U.S. Food and Drug Administration. The FDA has determined that such clearance or approval is not necessary. INTERPRETATION: B. Gastric antrum, biopsy: Negative for Helicobacter pylori organisms. AM:sanjeev 12/29/2020
--- NOTE | 2020-12-25 11:30 | EGD_PTH ---
PATIENT: NICK NAVARRO LOC: EN U#:[id number] AGE/SX: 75/M ROOM: RE12/25/[address]: Dr. Feliberto Castro DO : 1945 BED: DIS: 12/25/2020 SPEC #: [id number] RECD: 12/25/20 15:14 STATUS: OLAYINKA REMayo #: [id number] ESTELA: 12/25/20 11:[address]: Feliberto Castro DEPT: SURGICAL PATHOLOGY RECD BY: Melvi Goldsmith ENTERED: 12/26/20 08:55 SP TYPE: EGD BIOPSY FRANK DR: Dr. Anette Helton DO Tissues: A - Duodenum, NOS B - Gastric mucous membrane C - COLON BIOPSY Procedures: Surgery Specimen Level IV HEADER OPERATION[place] [place] [facility] [place] DIAGNOSIS: Abdominal pain, bloating, diarrhea TISSUE SUBMITTED: A ? Duodenum biopsy, B ? Gastritis gastric antrum for H. pylori and path, C ? Random colon biopsies MICROSCOPIC DIAGNOSIS A. Duodenum, biopsy: No pathologic change. B. Gastric antrum, biopsy: Mild chronic gastritis. See comment. C. Colon, random biopsy: Changes suggestive of lymphocytic colitis. AM:sanjeev 12/29/2020 COMMENT B. The results of immunohistochemistry for Helicobacter pylori will be reported separately ([id number]). MICROSCOPIC DESCRIPTION Slides are reviewed. GROSS DESCRIPTION A - Received in fixative is one container labeled with the patient's name and designated duodenum biopsy. The specimen consists of one irregular fragment of light rod soft tissue that measures 0.3 x 0.3 x 0.1 cm. The specimen is totally submitted in one cassette. B - Received in fixative is one container labeled with the patient's name and designated gastritis gastric antrum biopsy. The specimen consists of two irregular fragments of light rod soft tissue that in aggregate measure 0.6 x 0.3 x 0.1 cm. The specimen is totally submitted in one cassette. C - Received in fixative is one container labeled with the patient's name and designated random colon biopsy. The specimen consists of multiple irregular fragments of light rod soft tissue that in aggregate measure 2 x 0.5 x 0.1 cm. The specimen is totally submitted in one cassette. / LIZZIE:sanjeev 12/26/20 TC:3 CPT: 52219 x3
--- NOTE | 2020-12-25 13:07 | HP.PCM_ITS ---
History and Physical Date of Admission: 12/25/20 uvaldo Signs 12/12/20 10:11 Height 6 ft 1 in Weight: 253 lb 8 oz BMI 33.4 Intake Visit Reasons: constipation,diarrhea Chief Complaint: dizziness Allergies atorvastatin [From Lipitor] Adverse Reaction (Severe, Verified 12/12/20 10:06) Myalgias simvastatin [From Zocor] Adverse Reaction (Severe, Verified 12/12/20 10:06) Myalgias Medications allopurinol 300 mg PO DAILY 12/05/12 [History Confirmed 12/12/20] aspirin 81 mg PO DAILY@0800 12/05/12 [History Confirmed 12/12/20] clopidogrel 75 mg PO DAILY 12/05/12 [History Confirmed 12/12/20] metoprolol succinate 50 mg PO DAILY 12/05/12 [History Confirmed 12/12/20] multivitamin with folic acid 1 tab PO DAILY 12/05/12 [History Confirmed 12/12/20] omega-3 fatty acids 500 mg PO DAILY 12/05/12 [History Confirmed 12/12/20] triamterene-hydrochlorothiazid 1.5 tab PO DAILY 12/05/12 [History Confirmed 12/12/20] alfuzosin 10 mg PO DAILY 09/16/16 [History Confirmed 12/12/20] meclizine 12.5 mg PO DAILY PRN PRN 09/16/16 [History Confirmed 12/12/20] tramadol 50 mg PO DAILY PRN 09/16/16 [History Confirmed 12/12/20] dulaglutide 0.75 mg/0.5 mL subcutaneous pen injector 0.75 mg SC QWEEK 09/05/17 [History Confirmed 12/12/20] finasteride 5 mg tablet 5 mg PO QDAY 09/05/17 [History Confirmed 12/12/20] metformin 750 mg tablet,extended release 24 hr 750 mg PO BID tab 10/18/18 [History Confirmed 12/12/20] lisinopril 20 mg tablet 10 mg PO QDAY tab 10/19/19 [History Confirmed 12/12/20] rosuvastatin 40 mg tablet 40 mg PO QHS #90 tab 11/09/19 [Rx Confirmed 12/12/20] cholecalciferol (vitamin D3) 10 mcg (400 unit) tablet 10 mcg PO DAILY 12/02/20 [History Confirmed 12/12/20] dapagliflozin 5 mg tablet 5 mg PO DAILY 12/02/20 [History Confirmed 12/12/20] insulin glargine U-300 conc 300 unit/mL (3 mL) subcutaneous pen 22 unit SUBCUT QHS ml 12/02/20 [History Confirmed 12/12/20] levothyroxine 150 mcg tablet 150 mcg PO DAILY tab 12/02/20 [History Confirmed 12/12/20] bisacodyl 5 mg tablet,delayed release 20 mg PO ONCE #4 tab 12/12/20 [Rx Confirmed 12/12/20] polyethylene glycol 3350 17 gram/dose oral powder 17 g PO Q15-30M #238 g 12/12/20 [Rx Confirmed 12/12/20] [facility] Medical History (Updated 12/12/20 @ 18:[address] Dao Friend, DO) Abdominal pain Atherosclerotic heart disease of [place] coronary artery without angina pectoris Bloating Essential hypertension Fatigue Left ventricular hypertrophy Lung nodule Meniere disease Non-rheumatic aortic stenosis Nonrheumatic aortic (valve) insufficiency Presence of stent in coronary artery (~08/16/05) Pure hypercholesterolemia SVT (supraventricular tachycardia) Thoracic aortic aneurysm without rupture Surgical History H/O hernia repair History of cochlear implant Hx of cataract surgery Presence of coronary angioplasty implant and graft (~08/16/05) Family History Father CAD (coronary artery disease) Myocardial infarction Mother CAD (coronary artery disease) Brother Colon cancer Social History Smoking Status: Former smoker HPI HPI Chief Complaint: dizziness Details: NICK NAVARRO, is a 75 M who presents to the office today for the evaluation of abdominal pain associated with cramping and intermittent diarrhea. He has lost some weight. He cannot quantify a particular amount. He gets intermittent nausea. He does not associate the nausea with any particular foods. He denies any chest pain or shortness of breath. He does get occasional heartburn but not on a daily basis. He did notice over the last few months he has been having more bloating. He did try adding more fiber to his diet and incorporating a probiotic. This helped with his bloating somewhat however recently he has been having more diarrhea. He will have 3-4 loose bowel movements per day without tenesmus or fecal incontinence. He is also not having any bleeding in the form of melena or hematochezia. He has not started any new medicines. He is not having any problems sleeping. He has no past medical history of obstructive sleep apnea. He has not had any bowel surgeries. He does have urinary urgency and frequency without any burning, discharge or back pain. He does not know if he has any history of an e nlarged prostate. He also does have some muscle stiffness and arthritis that he takes an occasional Tylenol or nonsteroidal for on occasion. All other 16 review of systems negative except as per positive mentioned HPI. ROS Gastro GI: Positive for bloating, change in bowel habits, constipation, diarrhea and heartburn Genitourinary Male: Positive for urinary frequency and urinary urgency Musc Musculoskeletal: Positive for back pain, muscle weakness, stiffness, Arthritis and sciatica Exam Const General: cooperative and comfortable Nutritional Appearance: average body habitus and well nourished HENMT Head: normal to inspection Ears: hearing grossly normal bilaterally Nose: external nose normal Face and sinus: normal facial exam Mouth: oral mucosae normal Throat: posterior oropharynx normal Eyes General: appearance normal, both eyes and all related structures Neck Neck: normal visual inspection Chest Chest palpation & inspection: normal inspection of the chest and normal palpation of entire chest wall Resp Effort & Inspection: normal respiratory effort Auscultation: Bilateral: Clear to Auscultation Cardio Palpation: normal PMI Rate: regular rate Rhythm: regular rhythm GI Inspection: normal to inspection Auscultation: normal bowel sounds Percussion: normal to percussion Palpation: no hepatosplenomegaly Skin General: no rashes or lesions noted Neuro General: patient alert Extrem General: normal to inspection Psych Affect: normal affect Quality Reporting Tobacco Screening ([facility] 138) Smoking Status: Former smoker Assessment and Plan Assessment and Plan (1) Abdominal pain: Status: Acute Plan - Dr. Dao Friend, DO: The differential diagnosis for abdominal pain could be delayed gastric emptying or dumping syndrome which is accelerated gastric contents entering the duodenum. This can cause irritation in the upper GI tract leading to rapid transit through the small bowel. Also it could be secondary to NSAID induced gastritis or peptic ulcer disease versus H. pylori. (2) Bloating: Status: Acute Plan - Dr. Dao Friend, DO: His bloating could be secondary to small bacterial overgrowth, and medication side effect or a food intolerance particularly a simple sugar such as sucrose, fructose or lactose. Depending on what we see on his upper endoscopy we may have to empirically treat him for a sugar intolerance or perform a hydrogen breath test. (3) Diarrhea: Status: Acute Plan - Dr. Dao Friend, DO: His diarrhea could be secondary to his Metformin that he takes. However because he lost some weight and has been persistent despite the use of [id number] fiber and probiotics he should undergo colonoscopy with evaluation of the colon for diseases such as microscopic colitis, eosinophilic gastroenteritis and less likely villous adenoma associated with diarrhea. Plan Details Other Medications:
--- NOTE | 2020-12-25 14:07 | OP.EGD_ITS ---
Patient Name: Shine Jin Procedure Date: 12/25/2020 1:11 PM Date of : 1945 Age: 75 Procedure: Upper GI endoscopy Indications: Epigastric abdominal pain Providers: Feliberto Castro DO Medicines: Propofol per Anesthesia Patient Profile: This is a 75 year old male. Refer to note in patient chart for documentation of history and physical. Patient has symptoms. The symptoms first began August. Complications: No immediate complications. Procedure: Pre-Anesthesia Assessment: - Prior to the procedure, a History and Physical was performed, and patient medications and allergies were reviewed. The patient is competent. The risks and benefits of the procedure and the sedation options and risks were discussed with the patient. All questions were answered and informed consent was obtained. Patient identification and proposed procedure were verified by the physician in the pre-procedure area. Mental Status Examination: alert and oriented. Airway Examination: normal oropharyngeal airway and neck mobility. Respiratory Examination: clear to auscultation. CV Examination: normal. Prophylactic Antibiotics: The patient does not require prophylactic antibiotics. Prior Anticoagulants: The patient has taken heparin, last dose was 13 days prior to procedure. ASA Grade Assessment: II - A patient with mild systemic disease. After reviewing the risks and benefits, the patient was deemed in satisfactory condition to undergo the procedure. The anesthesia plan was to use moderate sedation / analgesia (conscious sedation). Immediately prior to administration of medications, the patient was re-assessed for adequacy to receive sedatives. The heart rate, respiratory rate, oxygen saturations, blood pressure, adequacy of pulmonary ventilation, and response to care were monitored throughout the procedure. The physical status of the patient was re-assessed after the procedure. After obtaining informed consent, the endoscope was passed under direct vision. Throughout the procedure, the patient's blood pressure, pulse, and oxygen saturations were monitored continuously. The gastroscope was introduced through the mouth, and advanced to the second part of duodenum. The upper GI endoscopy was accomplished without difficulty. The patient tolerated the procedure well. Moderate Sedation: Moderate (conscious) sedation was administered by the endoscopy nurse and supervised by the endoscopist. The following parameters were monitored: oxygen saturation, heart rate, blood pressure, and response to care. Total physician intraservice time was 15 minutes. Findings: LA Grade A (one or more mucosal breaks less than 5 mm, not extending between tops of 2 mucosal folds) esophagitis with no bleeding was found 42 cm from the incisors. Biopsies were taken with a cold forceps for histology. Diffuse moderately erythematous mucosa without bleeding was found in the gastric antrum. This was biopsied with a cold jumbo forceps for histology. Localized mild inflammation characterized by congestion (edema) was found in the first portion of the duodenum. Biopsies were taken with a cold forceps for histology. A medium-sized hiatal hernia was present. Impression: - LA Grade A reflux esophagitis. Biopsied. - Erythematous mucosa in the antrum. Biopsied. - Duodenitis. Biopsied. - Medium-sized hiatal hernia. Recommendation: - Await pathology results. - Repeat upper endoscopy in 1 year for surveillance. - Return to GI clinic in 2 weeks. - Continue present medications. Procedure Code(s): --- Professional --- 86345, Esophagogastroduodenoscopy, flexible, transoral; with biopsy, single or multiple G0500, Moderate sedation services provided by the same physician or other qualified health customer care coordinator performing a gastrointestinal endoscopic service that sedation supports, requiring the presence of an independent trained observer to assist in the monitoring of the patient's level of consciousness and physiological status; initial 15 minutes of intra-service time; patient age 5 years or older (additional time may be reported with 64722, as appropriate) CPT copyright 2017 [employer]. All rights reserved. The codes documented in this report are preliminary and upon cripple cutter review may be revised to meet current compliance requirements. Feliberto Castro DO 12/25/2020 2:07:06 PM This report has been signed electronically. Number of Addenda: 1 Note Initiated On: 12/25/2020 1:11 PM Addendum Number: 1 Addendum Date: 11/05/2021 4:42:11 PM MAC was used instead of moderate sedation for this patient. Feliberto Castro DO 11/05/2021 4:42:14 PM This report has been signed electronically.
--- NOTE | 2020-12-25 14:08 | OP.CCLET_ITS ---
11/05/2021 Anette Helton [address] [place] [address] Re : Upper GI endoscopy procedure for Shine Jin Dear Dr. Helton This procedure was performed on December. My impressions and recommendations are as follows: Impressions : - LA Grade A reflux esophagitis. Biopsied. - Erythematous mucosa in the antrum. Biopsied. - Duodenitis. Biopsied. - Medium-sized hiatal hernia. Recommendations : - Await pathology results. - Repeat upper endoscopy in 1 year for surveillance. - Return to GI clinic in 2 weeks. - Continue present medications. My findings are described in the full procedure note, which is enclosed. If I can be of further assistance, please feel free to contact me at . Sincerely, Feliberto Castro, 12/25/2020 2:07:06 PM This report has been signed electronically.
--- NOTE | 2020-12-25 14:14 | OP.COLON_ITS ---
Patient Name: Shine Jin Procedure Date: 12/25/2020 1:31 PM Date of : 1945 Age: 75 Procedure: Colonoscopy Indications: Chronic diarrhea Providers: Feliberto Castro DO Medicines: Propofol per Anesthesia Patient Profile: This is a 75 year old male. Refer to note in patient chart for documentation of history and physical. Patient has symptoms. The symptoms first began August. He is status post colonoscopy for diverticulitis within the past several years. Last Colonoscopy: 5 years ago. Complications: No immediate complications. Procedure: Pre-Anesthesia Assessment: - Prior to the procedure, a History and Physical was performed, and patient medications and allergies were reviewed. The patient is competent. The risks and benefits of the procedure and the sedation options and risks were discussed with the patient. All questions were answered and informed consent was obtained. Patient identification and proposed procedure were verified by the physician in the pre-procedure area. Mental Status Examination: alert and oriented. Airway Examination: normal oropharyngeal airway and neck mobility. Respiratory Examination: clear to auscultation. CV Examination: normal. Prophylactic Antibiotics: The patient does not require prophylactic antibiotics. Prior Anticoagulants: The patient has taken heparin, last dose was 13 days prior to procedure. ASA Grade Assessment: II - A patient with mild systemic disease. After reviewing the risks and benefits, the patient was deemed in satisfactory condition to undergo the procedure. The anesthesia plan was to use moderate sedation / analgesia (conscious sedation). Immediately prior to administration of medications, the patient was re-assessed for adequacy to receive sedatives. The heart rate, respiratory rate, oxygen saturations, blood pressure, adequacy of pulmonary ventilation, and response to care were monitored throughout the procedure. The physical status of the patient was re-assessed after the procedure. - Prior to the procedure, a History and Physical was performed, and patient medications and allergies were reviewed. The patient is competent. The risks and benefits of the procedure and the sedation options and risks were discussed with the patient. All questions were answered and informed consent was obtained. Patient identification and proposed procedure were verified by the physician in the pre-procedure area. Mental Status Examination: alert and oriented. Airway Examination: normal oropharyngeal airway and neck mobility. Respiratory Examination: clear to auscultation. CV Examination: normal. Prophylactic Antibiotics: The patient does not require prophylactic antibiotics. Prior Anticoagulants: The patient has taken no previous anticoagulant or antiplatelet agents. ASA Grade Assessment: II - A patient with mild systemic disease. After reviewing the risks and benefits, the patient was deemed in satisfactory condition to undergo the procedure. The anesthesia plan was to use moderate sedation / analgesia (conscious sedation). Immediately prior to administration of medications, the patient was re-assessed for adequacy to receive sedatives. The heart rate, respiratory rate, oxygen saturations, blood pressure, adequacy of pulmonary ventilation, and response to care were monitored throughout the procedure. The physical status of the patient was re-assessed after the procedure. After I obtained informed consent, the scope was passed under direct vision. Throughout the procedure, the patient's blood pressure, pulse, and oxygen saturations were monitored continuously. The pediatric colonoscope was introduced through the anus and advanced to the cecum, identified by the appendiceal orifice, ileocecal valve and palpation. The colonoscopy was performed without difficulty. The patient tolerated the procedure well. The quality of the bowel preparation was fair. Moderate Sedation: Moderate (conscious) sedation was personally administered by an anesthesia professional. The following parameters were monitored: oxygen saturation, heart rate, blood pressure, and response to care. Total physician intraservice time was 15 minutes. Scope In: 1:34:09 PM Scope Withdrawal Time 0 hours 6 minutes 40 seconds Scope Out: 2:02:48 PM Total Procedure Duration Time 0 hours 28 minutes 39 seconds Findings: The perianal and digital rectal examinations were normal. Hemorrhoids were found on perianal exam. Impression: - Preparation of the colon was fair. - Hemorrhoids found on perianal exam. - No specimens collected. - Severe diverticulosis in the sigmoid colon. There was no evidence of diverticular bleeding. There was narrowing of the colon in association with the diverticular opening. There was evidence of diverticular spasm. Erythema was seen in association with the diverticular opening. - Hemorrhoids. - Redundant colon. - The entire examined colon is normal on direct and retroflexion views. - Random biopsies were taken through the colon to rule out microscopic colitis Recommendation: - Discharge patient to home. - Resume previous diet. - Continue present medications. - Await pathology results. - Return to my office in 2 weeks. - Repeat colonoscopy is recommended per protocol. The colonoscopy date will be determined after pathology results from today's exam become available for review. Procedure Code(s): --- Professional --- 19768, Colonoscopy, flexible; diagnostic, including collection of specimen(s) by brushing or washing, when performed (separate procedure) Diagnosis Code(s): --- Professional --- K52.89, Other specified noninfective gastroenteritis and colitis K64.9, Unspecified hemorrhoids K52.9, Noninfective gastroenteritis and colitis, unspecified K57.30, Diverticulosis of large intestine without perforation or abscess without bleeding Q43.8, Other specified congenital malformations of intestine CPT copyright 2017 [employer]. All rights reserved. The codes documented in this report are preliminary and upon death surveys coder review may be revised to meet current compliance requirements. Feliberto Castro DO 12/25/2020 2:14:04 PM This report has been signed electronically. Number of Addenda: 1 Note Initiated On: 12/25/2020 1:31 PM Addendum Number: 1 Addendum Date: 11/05/2021 4:42:23 PM MAC was used instead of moderate sedation for this patient. Feliberto Castro DO 11/05/2021 4:42:35 PM This report has been signed electronically.
--- NOTE | 2020-12-25 14:15 | OP.CCLET_ITS ---
11/05/2021 Anette Helton [address] [place] [address] Re : Colonoscopy procedure for Shine Jin Dear Dr. Helton This procedure was performed on December. My impressions and recommendations are as follows: Impressions : - Preparation of the colon was fair. - Hemorrhoids found on perianal exam. - No specimens collected. - Severe diverticulosis in the sigmoid colon. There was no evidence of diverticular bleeding. There was narrowing of the colon in association with the diverticular opening. There was evidence of diverticular spasm. Erythema was seen in association with the diverticular opening. - Hemorrhoids. - Redundant colon. - The entire examined colon is normal on direct and retroflexion views. - Random biopsies were taken through the colon to rule out microscopic colitis Recommendations : - Discharge patient to home. - Resume previous diet. - Continue present medications. - Await pathology results. - Return to my office in 2 weeks. - Repeat colonoscopy is recommended per protocol. The colonoscopy date will be determined after pathology results from today's exam become available for review. My findings are described in the full procedure note, which is enclosed. If I can be of further assistance, please feel free to contact me at . Sincerely, Feliberto Castro, 12/25/2020 2:14:04 PM This report has been signed electronically.
[2020-12-25 15:46] LABS: Bedside Glucose 105 mg/dL (70-110)
== END 2020-12-25 15:00 | disposition home or self-care (01) ==
LOC: EN 10:25 → AC 10:27
PROVIDERS: PCP Internal Medicine; Referring Provider Internal Medicine; Visit Provider Internal Medicine Gastroenterology
PROC: 0DJD8ZZ Inspection of Lower Intestinal Tract, Via Natural or Artificial Opening Endoscopic (ICD-10-PCS; CPT 45378; principal; 2020-12-25 11:25)
DX: K21.00 Gastro-esophageal reflux disease with esophagitis, without bleeding (principal); K29.80 Duodenitis without bleeding; K29.50 Unspecified chronic gastritis without bleeding; K44.9 Diaphragmatic hernia without obstruction or gangrene; K57.30 Diverticulosis of large intestine without perforation or abscess without bleeding; K52.9 Noninfective gastroenteritis and colitis, unspecified; K64.9 Unspecified hemorrhoids; K59.00 Constipation, unspecified; R10.13 Epigastric pain; R14.0 Abdominal distension (gaseous); I25.10 Atherosclerotic heart disease of native coronary artery without angina pectoris; I71.4 Abdominal aortic aneurysm, without rupture; I47.1 Supraventricular tachycardia; I35.0 Nonrheumatic aortic (valve) stenosis; I35.1 Nonrheumatic aortic (valve) insufficiency; I11.9 Hypertensive heart disease without heart failure; E11.9 Type 2 diabetes mellitus without complications; E78.00 Pure hypercholesterolemia, unspecified; M10.9 Gout, unspecified; E07.9 Disorder of thyroid, unspecified; M19.90 Unspecified osteoarthritis, unspecified site; Z95.5 Presence of coronary angioplasty implant and graft; Z79.82 Long term (current) use of aspirin; Z79.02 Long term (current) use of antithrombotics/antiplatelets; Z79.4 Long term (current) use of insulin; Z79.84 Long term (current) use of oral hypoglycemic drugs; Z79.899 Other long term (current) drug therapy; Z87.891 Personal history of nicotine dependence; Z86.73 Personal history of transient ischemic attack (TIA), and cerebral infarction without residual deficits; Z80.3 Family history of malignant neoplasm of breast
CPT/HCPCS: 43239; G0105; 82962; 88305; 88342; J2405

== ENCOUNTER → 2020-12-29 12:42 | Outpatient (CLI) | payer MEDICARE, SELFPAY ==
--- NOTE | 2020-12-29 12:56 | ECHOCS_ITS ---
Reason For Study: ASHD Procedure This was a 2D Doppler, Color Flow transthoracic echocardiogram. The study was technically difficult. Due to body habitus. Contrast injection was performed. Exam performed in department. Left Ventricle Normal LV size. Left ventricular systolic function is normal. The estimated ejection fraction is 65 %. Diastolic function is indeterminate. No regional wall motion abnormalities noted. Right Ventricle Normal RV size. Normal systolic function. Atria Normal left atrium. Normal right atrium. No doppler evidence for ASD. Mitral Valve There is no mitral annular calcification. Mild focal mitral valve calcification of the anterior leaflet. Trivial mitral valve insufficiency. Tricuspid Valve Normal tricuspid valve. Trivial tricuspid valve insufficiency. Unable to estimate RV systolic pressure/pulmonary artery pressure due to technically difficult study. Aortic Valve The aortic valve leaflets are not well visualized, however, based upon the 2D echocardiographic images obtained there appears to be diffuse thickening, calcification, and partial restriction. Severe aortic stenosis. Mild (1+) aortic valve insufficiency. Pulmonic Valve The pulmonic valve is not well visualized. Great Vessels Mildly dilated aortic root. Pericardium/Pleural No pericardial effusion. Medication 22 gauge I.V. with prn adaptor inserted into left arm. Diluted definity 3.0ml given slow IV push to enhance endocardial definition. MMode/2D Measurements & Calculations RVDd: 3.4 cm LVOT diam: 2.0 cm Ao root diam: 4.3 cm LVOT area: 3.1 cm2 LAV(MOD-bp): 86.2 ml LA dimension(2D): 4.7 cm LA A4 area: 25.8 cm2 LAV(MOD-bp) Indexed: 36.4 ml/m2 LAV(MOD-sp2): 81.6 ml LAV(MOD-sp4): 81.6 ml RA A4 area: 15.7 cm2 Time Measurements MV dec time: 0.19 sec Doppler Measurements & Calculations MV E max vasiliy: 59.5 cm/sec Lat Peak E' Vasiliy: 6.1 cm/sec Med Peak E' Vasiliy: 7.4 cm/sec MV A max vasiliy: 101.7 cm/sec E/E' lat: 9.7 E/E' med: 8.0 MV E/A: 0.59 Ao V2 max: 413.4 cm/sec AI max vasiliy: 396.6 cm/sec LV V1 max: 116.2 cm/sec Ao max P.4 mmHg AI max P.0 mmHg LV V1 max P.4 mmHg Ao V2 mean: 318.9 cm/sec LV V1 mean P.1 mmHg Ao mean P.4 mmHg AI dec slope: 331.2 cm/sec2 LV V1 mean: 84.4 cm/sec Ao V2 VTI: 93.4 cm AI P1/2t: 350.7 msec LV V1 VTI: 23.3 cm CHEMA(I,D): 0.77 cm2 CHEMA(V,D): 0.87 cm2 SV(LVOT): 71.9 ml PA V2 max: 96.2 cm/sec ECHO/Echo Complete W/ Contrast Interpretation Summary The study was technically difficult. Contrast injection was performed. Left ventricular systolic function is normal. The estimated ejection fraction is 65 %. Mild focal mitral valve calcification of the anterior leaflet. Trivial mitral valve insufficiency. Trivial tricuspid valve insufficiency. Severe aortic stenosis. Mild (1+) aortic valve insufficiency. Mildly dilated aortic root. Unable to estimate RV systolic pressure/pulmonary artery pressure due to techni melanie difficult study. Diastolic function is indeterminate. Ordering Physician: Lance Phillips Referring Physician: Anette Helton Performed By: Ne Chang, RDCS, RVT
--- NOTE | 2020-12-29 14:09 | CT_ITS ---
STUDY: CTA CHEST REASON FOR EXAM: Male, 75 years old. Thoracic aortic aneurysm RADIATION DOSAGE (If Supplied By Facility): CTDIvol = ( 17.46 ) mGy, DLP = ( 832.03 ) mGycm TECHNIQUE: The examination was performed with the intravenous administration of IV 100mL Isovue-370. Post-processing of the angiographic images was performed, with multiplanar reformation and 3D reconstruction. Individualized dose optimization techniques were used for this CT. COMPARISON: Comparison is made with prior study dated 09/20/2017. FINDINGS: The thyroid has been surgically resected. Normal enhancement of the main pulmonary artery and right and left pulmonary arteries. Normal enhancement of the bilateral peripheral pulmonary arteries. There is no demonstrated pulmonary embolism. There is aneurysmal dilatation of the ascending aorta. The transverse diameter of the ascending aorta measures 45.4 mm''s. A previously measured 44.8. This is essentially unchanged. There is no demonstrated aortic dissection. Normal heart and pericardium. Normal mediastinum. Normal hilar regions. Normal visualized trachea and bronchi. The lungs are well expanded. Stable 4.5 mm noncalcified nodule in the peripheral lateral aspect of the left lower lobe as seen on axial image #94. Normal pleura. Normal chest wall structures. There are degenerative changes of thoracic spine. Normal visualized upper abdomen. CT/CTA Chest W/WO Contrast IMPRESSION: Stable dilatation of the ascending thoracic aorta. Electronically Signed: Rick De Leon MD at 14:24 EDT , Service support ,
[2020-12-31 07:40] LABS: CREATININE FINGERSTICK 1.4 mg/dL (0.70-1.30)
== END ==
LOC: CVS 12:49
PROVIDERS: PCP Internal Medicine; Visit Provider Internal Medicine Cardiovascular Disease
DX: I25.10 Atherosclerotic heart disease of native coronary artery without angina pectoris (principal); I71.2 Thoracic aortic aneurysm, without rupture; I35.0 Nonrheumatic aortic (valve) stenosis; I10 Essential (primary) hypertension; E78.00 Pure hypercholesterolemia, unspecified; Z95.5 Presence of coronary angioplasty implant and graft
CPT/HCPCS: 71275; 93306; Q9957; Q9967; A4216; C8929; J3490

== ENCOUNTER → 2021-01-14 08:53 | Outpatient (CLI) | payer MEDICARE, SELFPAY ==
[2021-01-14 10:16] LABS: Hematocrit 34.6 % (40-54); Hemoglobin 11.2 g/dL (13.0-16.5); Mean Corp Hgb Conc 32.4 g/dL (32-36); Mean Corpuscular Hgb 30.3 pg (27.0-32.0); Mean Corpuscular Volume 93.5 fL (80-94); Platelet Count 188 K/mm3 (150-450); RBC Distribution Width CV 13.8 % (11.6-14.6); RBC Distribution Width SD 46.9 fl (35.1-43.9); White Blood Count 5.7 K/mm3 (4.4-11.0)
[2021-01-14 10:27] LABS: International Normalized Ratio 1.1; Partial Thromboplast Time 30.4 Seconds (24.1-36.2); Prothrombin Time (Protime)PT. 13.4 SECONDS (11.7-14.9)
[2021-01-14 11:17] LABS: Anion Gap 6 (5-15); BUN 38 mg/dL (7-18); BUN/Creat Ratio 22.1 RATIO (10-20); Calcium,Total 9.2 mg/dL (8.5-10.1); Chloride 109 mmol/L (98-107); Creatinine, Serum 1.72 mg/dL (0.70-1.30); EST Glomerular Filtration Rate 41 mL/min (>60); Est Glom Filt Rate - Afr Amer 50 mL/min (>60); Glucose 121 mg/dL (74-106); Potassium 4.7 mmol/L (3.5-5.1); Sodium Level 141 mmol/L (136-145)
== END ==
PROVIDERS: PCP Internal Medicine; Referring Provider Internal Medicine Cardiovascular Disease; Visit Provider Internal Medicine Cardiovascular Disease
DX: R06.00 Dyspnea, unspecified (principal); R10.13 Epigastric pain; I25.10 Atherosclerotic heart disease of native coronary artery without angina pectoris; I35.0 Nonrheumatic aortic (valve) stenosis; I35.1 Nonrheumatic aortic (valve) insufficiency; I10 Essential (primary) hypertension; Z95.5 Presence of coronary angioplasty implant and graft
CPT/HCPCS: 36415; 80048; 85027; 85610; 85730

== ENCOUNTER 2021-02-03 08:02 | Day surgery (SDC) | payer MEDICARE, SELFPAY ==
[2021-02-02 10:19] VITALS: BMI 33.3
--- NOTE | 2021-02-02 18:03 | PCM.HP.BLA ---
History and Physical Date of Admission: 02/03/21 [facility] [id number] [place], [place] [id number] OFFICE VISITDate of Service: 01/05/21 MR#:[id number]:[id number]: NICK NAVARRORep #:[id number] Provider:Dr. Lance Phillips MDAge/Sex: 75/M [facility] [place]:Signed HPI HPI History of Present Illness Surgical H&P: Yes Details: This is a 75-year-old white male who presents today for outpatient cardiovascular follow-up of his history of underlying CAD, PCI, aortic valve stenosis, thoracic aortic aneurysm, SVT, hyperlipidemia, and hypertension. He denies any symptoms of classic angina pectoris at this time. As you recall, he does have an element of chronic shortness of breath/dyspnea with exertion. He does not describe classic orthopnea or PND. He does not describe classic angina pectoris at this time. There is been no near syncope or syncope. He has undergone noninvasive studies which is included follow-up of his aortic valve with a transthoracic echocardiogram and aortic root with a transthoracic echocardiogram and the CT scan. The results of those studies are noted below. Of note it does appear that his aortic valve has progressed and is now in the severe stenotic range based upon his aortic valve maximal velocity, his aortic valve mean gradient, and his aortic valve area. 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: No Accompanied by: Allergies atorvastatin [From Lipitor] Adverse Reaction (Severe, Verified 01/05/21 11:39) Myalgias simvastatin [From Zocor] Adverse Reaction (Severe, Verified 01/05/21 11:39) Myalgias Medications allopurinol 300 mg PO DAILY 12/05/12 [History Confirmed 01/05/21] aspirin 81 mg PO DAILY@0800 12/05/12 [History Confirmed 01/05/21] clopidogrel 75 mg PO DAILY 12/05/12 [History Confirmed 01/05/21] metoprolol succinate 50 mg PO DAILY 12/05/12 [History Confirmed 01/05/21] multivitamin with folic acid 1 tab PO DAILY 12/05/12 [History Confirmed 01/05/21] omega-3 fatty acids 500 mg PO DAILY 12/05/12 [History Confirmed 01/05/21] triamterene-hydrochlorothiazid 1.5 tab PO DAILY 12/05/12 [History Confirmed 01/05/21] alfuzosin 10 mg PO DAILY 09/16/16 [History Confirmed 01/05/21] meclizine 12.5 mg PO DAILY PRN PRN 09/16/16 [History Confirmed 01/05/21] tramadol 50 mg PO DAILY PRN 09/16/16 [History Confirmed 01/05/21] dulaglutide 0.75 mg/0.5 mL subcutaneous pen injector 1.5 mg SC QWEEK 09/05/17 [History Confirmed 01/05/21] finasteride 5 mg tablet 5 mg PO QDAY 09/05/17 [History Confirmed 01/05/21] metformin 750 mg tablet,extended release 24 hr 750 mg PO BID tab 10/18/18 [History Confirmed 01/05/21] lisinopril 20 mg tablet 10 mg PO QDAY tab 10/19/19 [History Confirmed 01/05/21] cholecalciferol (vitamin D3) 10 mcg (400 unit) tablet 10 mcg PO DAILY 12/02/20 [History Confirmed 01/05/21] dapagliflozin 5 mg tablet 5 mg PO DAILY 12/02/20 [History Confirmed 01/05/21] insulin glargine U-300 conc 300 unit/mL (3 mL) subcutaneous pen 22 unit SUBCUT QHS ml 12/02/20 [History Confirmed 01/05/21] levothyroxine 150 mcg tablet 150 mcg PO DAILY tab 12/02/20 [History Confirmed 01/05/21] bisacodyl 5 mg tablet,delayed release 20 mg PO ONCE #4 tab 12/12/20 [Rx Confirmed 01/05/21] polyethylene glycol 3350 17 gram/dose oral powder 17 g PO Q15-30M #238 g 12/12/20 [Rx Confirmed 01/05/21] rosuvastatin 40 mg PO DAILY 12/22/20 [History Confirmed 01/05/21] PFSH Medical History Abdominal pain Alcohol use Anemia Arthritis Atherosclerotic heart disease of [place] coronary artery without angina pectoris Bloating Cardiology follow-up encounter Diabetes Essential hypertension Fatigue Former smoker Gastric reflux Gout History of echocardiogram Left ventricular hypertrophy Lung nodule Meniere disease Non-rheumatic aortic stenosis Nonrheumatic aortic (valve) insufficiency Presence of stent in coronary artery (~08/16/05) Prostate disease Pure hypercholesterolemia Stroke/cerebrovascular accident SVT (supraventricular tachycardia) Thoracic aortic aneurysm without rupture Thyroid disease Wears dentures Wears hearing aid Surgical History H/O hernia repair History of cochlear implant History of colonoscopy History of right hip replacement Hx of cataract surgery Presence of coronary angioplasty implant and graft (~08/16/05) Family History Father CAD (coronary artery disease) Myocardial infarction Mother CAD (coronary artery disease) Brother Colon cancer Social History Smoking Status: Former smoker ROS Const Const: Negative for fatigue, weakness, frequent falls, excessive sweating, weight gain or weight loss Eyes Eyes: Negative for transient loss of vision, blurry vision or change in vision ENT ENT: Negative for dizziness or balance problems Cardio Chest Pain: No Palpitations: No Edema: None Muscle aches with walking: None Resp Respiratory: Positive for SOB with activity (slightly increased); Negative for SOB at rest GI GI: Negative vomiting or vomiting blood/hematemesis : Negative for hematuria Musc Musc: Negative for muscle aches/ myalgia, muscle weakness, joint pain or balance problems Skin Skin: Negative non-healing lesions or rash Neuro Neuro: Negative for dizziness, lightheadedness, orthostatic symptoms, frequent falls, weakness or blurry vision Justin Hematologic/Lymphatic: Negative for easy bleeding Endo Endo: Negative for fatigue or excessive sweating Psych Psych: Negative for anxiety or depression Allergy Allergy/Immunology: Negative for hives and Negative for rash Cardiology Exam Const Appearance: cooperative, healthy appearing, comfortable, no acute distress, well developed and well groomed Nutritional Appearance: overweight Orientation: alert, awake and oriented x3 Head Head: normal to inspection, normocephalic and atraumatic Ears: hearing grossly normal bilaterally Nose: external nose normal Face and Sinus: face symmetric Eyes Eyelids: eyelids normal Conjunctivae: conjunctivae normal Pupils: PERRL EOM: EOM intact bilaterally Neck Neck: normal visual inspection and full ROM Carotids: normal carotid upstroke Chest Chest inspection: normal inspection of the chest, symmetric chest movement and normal respiratory effort Auscultation: Bilateral: Clear to Auscultation Cardio Palpation: normal PMI Rate: regular rate Rhythm: regular rhythm Heart sounds: S1 normal, S2 normal and murmur Murmur: Grade 3/6, harsh, mid systolic, LLSB, LVOT, sternal notch and radiates to carotids GI GI: normal to inspection, soft and bowel sounds present Neuro General: patient alert, patient awake, patient oriented x3 and moves all extremities Skin Skin: no rashes or lesions noted Extremities Pulses: Normal: Right Radial Pulse and Left Radial Pulse Lower Extremity Edema: None: Bilateral Psych Psychological: normal affect Supplemental Info Supplemental Information Transthoracic echocardiogram: 11-08-2013 Interpretation Summary The study was technically difficult. Contrast injection was performed. Segmental dysfunction with preserved ejection fraction (see wall motion). The estimated ejection fraction is 55 %. Moderate concentric left ventricular hypertrophy. Trivial mitral valve insufficiency. Trivial tricuspid valve insufficiency. Mild aortic stenosis. Trivial aortic valve insufficiency. Trivial pulmonic valve insufficiency. Calcified aortic root. Right ventricular systolic pressure estimated to be 32 mmHg. Transthoracic echocardiogram: 09-17-2016 The study was technically difficult Contrast injection was performed Segmental dysfunction with preserved ejection fraction (see wall motion) The estimated ejection fraction is 65% Moderate to severe concentric left ventricular hypertrophy The left atrium is mildly enlarged Mild focal mitral valve calcification of the anterior leaflet Trivial mitral valve insufficiency Trivial tricuspid valve insufficiency Mild to moderate aortic stenosis Trivial aortic valve insufficiency Trivial pulmonic valve insufficiency Mildly dilated aortic root Right ventricular systolic pressure estimated to be 30 mmHg Transthoracic echocardiogram: 11-07-2018 Interpretation Summary The study was technically difficult. Contrast injection was performed. Left ventricular systolic function is normal. The estimated ejection fraction is 60 %. Moderate to severe concentric LVH. The left atrium is mildly enlarged. Anterior leaflet diffuse mitral valve thickening. Mild focal mitral valve calcification of the anterior leaflet. Trivial mitral valve insufficiency. Trivial tricuspid valve insufficiency. Moderate aortic stenosis. Mild (1+) aortic valve insufficiency. Trivial pulmonic valve insufficiency. Moderately dilated aortic root. Unable to estimate RV systolic pressure/pulmonary artery pressure due to technically difficult study. There is evidence of diastolic dysfunction. Echocardiogram: 11-06-2019 Interpretation Summary The study was technically difficult. Contrast injection was performed. Left ventricular systolic function is normal. The estimated ejection fraction is 55 %. Severe concentric left ventricular hypertrophy. The left atrium is mildly enlarged. Anterior leaflet diffuse mitral valve thickening. Mild focal mitral valve calcification of the anterior leaflet. Trivial mitral valve insufficiency. Trivial tricuspid valve insufficiency. Moderate to severe aortic valve stenosis. Mild (1+) aortic valve insufficiency. Moderately dilated aortic root. (approximately 4.5 cm) Unable to estimate RV systolic pressure/pulmonary artery pressure due to technically difficult study. Diastolic function is indeterminate. Echocardiogram: 12-29-2020 Interpretation Summary The study was technically difficult. Contrast injection was performed. Left ventricular systolic function is normal. The estimated ejection fraction is 65 %. Mild focal mitral valve calcification of the anterior leaflet. Trivial mitral valve insufficiency. Trivial tricuspid valve insufficiency. Severe aortic stenosis. Mild (1+) aortic valve insufficiency. Mildly dilated aortic root. Unable to estimate RV systolic pressure/pulmonary artery pressure due to technically difficult study. Diastolic function is indeterminate. Stress test: 11-08-13 EXERCISE TOLERANCE TEST: The patient exercised on a Ventura protocol for 4 minutes 45 seconds achieving a peak heart rate of 127 beats per minute ( 85% predicted maximum heart rate) with a peak blood pressure of 156/80 mmHg and a peak MET capacity of approximately 6-7 METS. The baseline ECG demonstrated normal sinus rhythm. The peak exercise ECG demonstrated no obvious ECG changes. There was an occasional PAC and PVC during exercise and occasional PAC and PVC during recovery. The functional capacity was considered average. There was no report of chest discomfort during exercise or recovery. The examination was discontinued secondary to dyspnea. IMPRESSION: 1. Technically adequate (percent predicted maximum heart rate greater than 85%) exercise tolerance test. 2. Peak exercise ECG with no obvious ECG changes. 3. Occasional PAC/PVC during exercise and occasional PAC/PVC during recovery. 4. Nuclear images pending. MYOCARDIAL PERFUSION IMAGING STUDY: TECHNIQUE: The patient was injected with 14.6 mCi of Tc99m Cardiolite and subsequently rest SPECT Cardiolite nuclear imaging was obtained in the horizontal long, vertical long, and short axes views. The patient exercised on a Ventura protocol for 4 minutes, 45 seconds achieving a peak heart rate of 127 beats per minute ( 85% predicted maximum heart rate) with a peak blood pressure of 156/80 mmHg and a peak MET capacity of 6-7 METS. The patient was injected with 44.8 mCi of Tc99m Cardiolite and subsequently stress SPECT Cardiolite nuclear imaging was obtained in the horizontal long, vertical long, and short axes views. A gated Cardiolite study at peak stress was obtained. INTERPRETATION: Rest and stress SPECT Cardiolite nuclear imaging both demonstrate areas of diminished myocardial perfusion/tracer uptake in portions of the basal inferior septal/basal inferior segments extending towards the mid to distal inferior/inferior apical segments without significant change between rest and stress. There are similar type findings on the resting and stress polar map images. There was diminished end systolic thickening and brightening in the basal inferior segments. The gated Cardiolite study demonstrates diminished myocardial thickening and inward wall motion in the basal inferior segments. The reported LVEF was 46%. The aforementioned changes appear suggestive of an area of previous myocardial injury/infarction with no myocardial perfusion changes considered diagnostic for associated stress-induced myocardial ischemia. IMPRESSION: 1. Rest and stress SPECT Cardiolite nuclear imaging demonstrate myocardial perfusion changes appearing suggestive of an area of previous myocardial injury/infarction involving portions of the basal inferior septal/basal inferior segments extending toward the mid to distal inferior and inferior apical segment with no myocardial perfusion changes considered diagnostic for associated stress-induced myocardial ischemia. 2. The gated Cardiolite study reports an LVEF of 46%. Chest CT scan: 09-20-17 IMPRESSION: Stable small left lower lobe pulmonary nodule is unchanged compared to imaging as far back as 2013. Aneurysmal ectasia of the ascending aorta and proximal arch has not substantially changed since imaging of at least 2013. Three-vessel coronary atherosclerosis and aortic valve calcifications. No other acute cardiopulmonary process is evident. Chest CT scan: 11-07-2018 IMPRESSION: 1. The ascending thoracic aorta measuring 4.4 cm in diameter. There is no aneurysm. 2. Mild atherosclerotic changes of the thoracic aorta and coronary arteries. 3. No evidence of pulmonary embolus. 4. No evidence for acute cardiopulmonary disease. Chest CT scan: 10-26-2019 FINDINGS: There is no focal infiltrate in the lungs. There is mild basilar atelectasis. There is a 0.4 cm subpleural nodule in the left mid chest. There are left lung granulomas. There is no demonstrated pleural abnormality. There are calcifications of the coronary arteries and endovascular stents. There are aortic valvular calcifications. Normal mediastinum. Normal hilar regions. Normal enhanced pulmonary arteries. There is atherosclerotic calcification of the aortic arch with tortuosity and elongation of the aortic arch and descending thoracic aorta. There is stable aneurysmal dilatation of the ascending aorta. The transverse diameter of the ascending aorta measures 48 mm''s. There are multi-level degenerative changes of the thoracic spine. There is degenerative change of the shoulders. There is splenomegaly. CT/Chest WITH Contrast IMPRESSION: Stable aneurysmal dilatation of the ascending aorta. Atherosclerotic calcifications. Granulomatous calcifications. Electronically Signed: Reji Christian MD at 9:51 EDT Chest CTA: 12-29-2020 FINDINGS: The thyroid has been surgically resected. Normal enhancement of the main pulmonary artery and right and left pulmonary arteries. Normal enhancement of the bilateral peripheral pulmonary arteries. There is no demonstrated pulmonary embolism. There is aneurysmal dilatation of the ascending aorta. The transverse diameter of the ascending aorta measures 45.4 mm''s. A previously measured 44.8. This is essentially unchanged. There is no demonstrated aortic dissection. Normal heart and pericardium. Normal mediastinum. Normal hilar regions. Normal visualized trachea and bronchi. The lungs are well expanded. Stable 4.5 mm noncalcified nodule in the peripheral lateral aspect of the left lower lobe as seen on axial image #94. Normal pleura. Normal chest wall structures. There are degenerative changes of thoracic spine. Normal visualized upper abdomen. CT/CTA Chest W/WO Contrast IMPRESSION: Stable dilatation of the ascending thoracic aorta. Electronically Signed: Rick De Leon MD at 14:[address] scan: 11-07-2018 IMPRESSION: 1. No evidence for abdominal aortic aneurysm or dissection. 2. Gallstones without acute cholecystitis. 3. Brachytherapy seeds within the enlarged prostate. 4. Right artificial hip. 5. Degenerative changes of the lumbar spine. Cardiac catheterization: 07-28-2011: [facility]: Left ventricle normal with an LVEF of 60% with a report of mild hypokinesis of the mid inferior segment Left main coronary artery with 25% diffuse eccentric stenosis LAD with 25% diffuse eccentric stenosis LCx with minimal disease Intermediate ramus with 75% diffuse eccentric stenosis Right coronary artery with 50 to 75% diffuse eccentric stenosis Severe single-vessel CAD with proximal to mid intermediate ramus 50 to 75% stenosis with subsequent FFR considered negative with recommendations for continued medical management PCI: 08-16-2005: [facility]: LCx PTCA/DAMARIS with a 2.5 mm x 16 mm Taxus medicated stent Labs: LDL Cholesterol TNP HDL Cholesterol 40 mg/dL (40-) Triglycerides 477 mg/dL (-199) H VLDL Cholesterol TNP Diagnostics: Electrocardiogram Echocardiogram Stress Test NM Chest X-Ray Pulmonary: No Data to Display Assessment and Plan Assessment and Plan (1) Non-rheumatic aortic stenosis: Status: Chronic Comment: Mod-Severe per ECHO 11/06/19 Plan - Dr. Lance Phillips MD: At the present time a lengthy discussion was held with the patient with his present regarding his aortic valve. Based upon the patient's history, symptoms, and objective findings, it was recommended that he proceed with further aortic valve evaluation which would include a diagnostic cardiac catheterization in anticipation for a tertiary care center evaluation for aortic valve replacement either percutaneously or surgically. The procedure and risk were discussed with the patient. He states he is going to consider his options following his upcoming GI appointment but states that most likely he will proceed in this manner. (2) Thoracic aortic aneurysm without rupture: Status: Chronic Plan - Dr. Lance Phillips MD: The patient is being followed with respect to his thoracic aorta. Again his noninvasive studies are below. He will continue further evaluation and care as noted above. (3) Atherosclerotic heart disease of [place] coronary artery without angina pectoris: Status: Chronic Qualifiers: [place] vs. transplanted heart: [place] heart Qualified Code(s): I25.10 - Atherosclerotic heart disease of [place] coronary artery without angina pectoris Plan - Dr. Lance Phillips MD: The patient does have a history of CAD and PCI. Thus it is prudent to proceed with further evaluation of this in anticipation of a tertiary care center evaluation for his aortic valve as noted above. (4) Presence of stent in coronary artery: Status: Chronic Comment: PTCA/DAMARIS to the prox main CX 08/16/05 Plan - Dr. Lance Phillips MD: The patient's PCI history was reviewed with him. He will continue medical therapy and further evaluation as noted. (5) Pure hypercholesterolemia: Status: Chronic Plan - Dr. Lance Phillips MD: The patient will continue lipid-lowering therapy as deemed appropriate. (6) Essential hypertension: Status: Chronic Plan - Dr. Lance Phillips MD: The patient's blood pressure appears to be reasonably well controlled at this time. He will continue medical management. Plan Details Additional Comments: Thank you for allowing me to participate in the care of your patient. Please don't hesitate to call if any issues arise. This note was generated using a voice recognition system and there may be incorrect words, spelling or punctuation that were not noted when reviewing the office note prior to saving. Follow Up: 01/05/21 (as previously scheduled) COVID (Procedure Consent) Procedure Criteria Procedure Criteria: Yes Elective The surgeon/proceduralist and patient have discussed in detail the risk of exposure to and/or potential harm posed by the COVID-19 virus with having a surgery/procedure at this time versus the risk of delaying the surgery/procedure. It is not possible to know either the risk of delaying the surgery or procedure or chance of getting an infection with perfect accuracy, but a joint decision was made between the patient and the surgeon/proceduralist to proceed at this time with the scheduled surgery/procedure as indicated on the consent form. Coding Level of Care Code Off vis,est,level 3 Diagnoses Non-rheumatic aortic stenosis I35.0 Thoracic aortic aneurysm without rupture I71.2 Atherosclerotic heart disease of [place] coronary artery without angina pectoris I25.10 [place] vs. transplanted heart: [place] heart Presence of stent in coronary artery Z95.5 Pure hypercholesterolemia E78.00 Essential hypertension I10 Coding Level of Care Code Off vis,est,level 3 Diagnoses Non-rheumatic aortic stenosis I35.0 Thoracic aortic aneurysm without rupture I71.2 Atherosclerotic heart disease of [place] coronary artery without angina pectoris I25.10 [place] vs. transplanted heart: [place] heart Presence of stent in coronary artery Z95.5 Pure hypercholesterolemia E78.00 Essential hypertension I10 01/05/21 1239<Electronically signed by Lance Phillips MD>Date Lance Almodovar Signature:Date (if applicable) CC: Dr. Anette Helton, DO ~ Assessment & Plan Addt'l Comments I have re-examined the patient. There are no clinical changes since date of exam
--- NOTE | 2021-02-03 12:14 | CL.D_ITS ---
Patient Name: NICK NAVARRO Study Date: 02/03/2021 Performing: Lance Phillips MD Ht: 72.83 inches 185 cm : 1945 Wt: 253.53 lbs 115 kg Age: 75 Gender: male BSA: 2.38 PROCEDURE(S) PERFORMED [id number] ROOT ANGIO WITH HEART CATH CLINICAL PROFILE AND INDICATIONS Indications: Valvular Disease, Suspected CAD, Pre-Operative Evaluation Heart Failure: None Stress/Imaging Stress/Image Study Performed: No Angina Classification Anginal Classification w/in 2 Weeks: Anginal Equivalent Dyspnea CAD Presentations: Other: dyspnea on exertion CONCLUSIONS Hughes Multivessel CAD Aortic Root Aneurysm Aortic Valve Calcification- Moderate RECOMMENDATIONS Risk factor modification Medical therapy Surgery consult for Valve Replacement surgery Surgery consult for coronary revascularization Surgery consult for thoracic aortic root dilatation / aneurysm DESCRIPTION OF PROCEDURE The patient arrived to the procedure lab. The risks and benefits of the procedure as well as a full d escription of our services here and current unavailability of surgical backup were fully explained to the patient and/or their significant other prior to the catheterization. The Timeout was completed, verifying the correct patient and procedure. The patient's procedural site was prepped and draped in the usual fashion. Local anesthetic was given subcutaneously to right radial region with Lidocaine 2% . Using a modified Seldinger technique, arterial access was obtained via the right radial artery, a 6 Fr sheath was inserted. Right Coronary Artery selective angiography was then performed in multiple v iews using a 5 Fr. 4.0 [place] catheter. Left Coronary Artery selective angiography was performed in mu ltiple views using a 5 Fr. JL3.5 catheter. Left Coronary Artery selective angiography was performed i n multiple views using a 6 Fr. JL 5 catheter. Ascending (root) aorta selective angiography was then performed in single view. Ascending (root) aorta selective angiography was then performed in single view.The arterial sheath was pulled and a TR Band was applied for hemostasis, 10cc of air CORONARY ANGIOGRAPHY DOMINANCE: Right Dominant LEFT HEART ASSESSMENT Left Ventricular Ejection Fraction: Not assessed LEFT MAIN: Mild calcification LEFT ANTERIOR DESCENDING ARTERY: Mild luminal irregularities PROX LAD: Mild calcification, diffuse: 25 % Stenosis CIRCUMFLEX ARTERY: Mild luminal irregularities PROX CIRC: Previously placed stent is patent OM 1: Proximal - small caliber vessel: diffuse: 75 % Stenosis RAMUS: Mild luminal irregularities, Proximal: 50 % Stenosis RIGHT CORONARY ARTERY: MID RCA: diffuse: irregular: 75 % Stenosis VALVE FINDINGS: Aortic Valve Calcification - moderate AORTIC ROOT: Aneurysm COMPLICATIONS No Complications PROCEDURE MEDICATIONS Versed 1 mg IV Fentanyl 50 mcg IV Oxygen: 2 L/min via nasal cannula Heparin given IA 02/03/2021 11:20:53 Verapamil 2.5mg, Ntg 100mcgs, 3000 units of Heparin given IA 02/03/2021 11:20:53 IV Fluids: .9 NaCl IV continued @ 100 ml/hr 02/03/2021 11:25:44 SUMMARY OF HEMODYNAMIC DATA Time AIR REST ECG 08:27:32 Art 132/48 (80) 11:13:04 AO 96/55 (73) SA 11:24:04 Signed By Lance Phillips MD On 02/03/2021 12:13:06 Lance Phillips MD
== END 2021-02-03 13:15 | disposition home or self-care (01) ==
PROVIDERS: PCP Internal Medicine; Referring Provider Internal Medicine Cardiovascular Disease; Visit Provider Internal Medicine Cardiovascular Disease
DX: I35.0 Nonrheumatic aortic (valve) stenosis (principal); I71.2 Thoracic aortic aneurysm, without rupture; I25.10 Atherosclerotic heart disease of native coronary artery without angina pectoris; E78.00 Pure hypercholesterolemia, unspecified; I10 Essential (primary) hypertension; Z95.5 Presence of coronary angioplasty implant and graft; R91.1 Solitary pulmonary nodule; Z87.891 Personal history of nicotine dependence; E78.5 Hyperlipidemia, unspecified; R06.02 Shortness of breath; R06.09 Other forms of dyspnea
CPT/HCPCS: 93454; 99152; 99153; J7040; Q9967; C1769; C1894

== ENCOUNTER → 2021-02-06 09:02 | Outpatient (CLI) | payer MEDICARE, SELFPAY ==
[2021-02-06 10:51] LABS: Anion Gap 6 (5-15); BUN 34 mg/dL (7-18); BUN/Creat Ratio 20.5 RATIO (10-20); Calcium,Total 9.2 mg/dL (8.5-10.1); Chloride 112 mmol/L (98-107); Creatinine, Serum 1.66 mg/dL (0.70-1.30); EST Glomerular Filtration Rate 43 mL/min (>60); Est Glom Filt Rate - Afr Amer 52 mL/min (>60); Glucose 141 mg/dL (74-106); Potassium 4.7 mmol/L (3.5-5.1); Sodium Level 143 mmol/L (136-145)
== END ==
PROVIDERS: PCP Internal Medicine; Referring Provider Internal Medicine Cardiovascular Disease; Visit Provider Internal Medicine Cardiovascular Disease
DX: I10 Essential (primary) hypertension (principal); I25.10 Atherosclerotic heart disease of native coronary artery without angina pectoris; I35.0 Nonrheumatic aortic (valve) stenosis
CPT/HCPCS: 36415; 80048

== ENCOUNTER 2021-03-30 12:44 | Outpatient (CLI) | payer MEDICARE, SELFPAY ==
--- NOTE | 2021-03-30 12:46 | VDLE_ITS ---
Reason For Study: Pain RIGHT LEFT CFV is compressible, spontaneous, phasic, CFV is compressible, spontaneous, phasic, competent and demonstrates normal competent, and demonstrates normal augmentation. augmentation. FV is compressible, spontaneous, phasic, competent and demonstrates normal augmentation. POP V is compressible, spontaneous, phasic, competent and demonstrates normal augmentation. T/P Trunk is compressible. PTV is compressible. RT PerV is compressible. GSV above knee was harvested 03/10/21. Acute superficial vein thrombosis is noted in the GSV at knee. GSV below knee is compressible. Procedure This is a venous duplex using B-mode, color flow and spectral Doppler. Exam performed in department. A preliminary report was called and/or faxed to [facility]. VL/Venous Duplex US, Unilateral Interpretation Summary There is no evidence of right lower extremity deep vein thrombosis. Surgically harvested right above-knee great saphenous vein. Superficial thrombophlebitis right great saphenous vein at the knee. The great saphenous vein is otherwise patent and compressible in the infrageniculate position. Normal flow patterns left common femoral vein Ordering Physician: Lance Phillips Referring Physician: Anette Helton M.D. Performed By: Rachelle Perez RVT
--- NOTE | 2021-03-30 15:32 | RAD_ITS ---
STUDY: X-RAY CHEST REASON FOR EXAM: Male, 76 years old. CHEST PAIN Technologist Notes POST OP OPEN HEART SURGERY ON March CAD; CABG; AVR; Aortoplasty TECHNIQUE: XR Chest 2 Views COMPARISON: 03.03.17 FINDINGS: Bilateral pleural effusions. There is bilateral / atelectasis. There are multiple median sternotomy wires. There is no pneumothorax. Normal size heart. Normal mediastinum and ignacio. Normal visualized pulmonary arteries. There is atherosclerotic calcification of the aortic arch with tortuosity. There are diffuse degenerative changes of the visualized thoracic spine. There is degenerative osteoarthritis of the bilateral shoulders. There is no demonstrated abnormality of the visualized soft tissue structures of the upper abdomen. RAD/Chest PA and Lateral IMPRESSION: Bilateral pleural effusions. Electronically Signed: Ed Calderón MD at 17:47 EST , Service support ,
[2021-03-30 17:11] LABS: Absolute Lymphocyte Count 1.12 X10^3/uL (0.83-4.51); Absolute Neutrophil Count 7.8 X10^3/uL (2.0-7.7); Basophil# 0.04 X10^3/uL; Basophil% 0.4 % (0-1); Eosinophil# 0.21 X10^3/uL; Eosinophils% 2.1 % (0-5); Hematocrit 30.9 % (40-54); Hemoglobin 9.3 g/dL (13.0-16.5); Lymphocyte # 1.12 X10^3/ul (0.83-4.51); Lymphocyte % 11.3 % (19-41); Mean Corp Hgb Conc 30.1 g/dL (32-36); Mean Corpuscular Hgb 29.6 pg (27.0-32.0); Mean Corpuscular Volume 98.4 fL (80-94); Mean Platelet Vol. 9.3 fl (6.2-12.0); Monocyte# 0.69 X10^3/uL; NRBC Flagged by Analyzer 0 % (0-5); Neutrophil # 7.79 X10^3/uL (2.7-7.7); Neutrophil % 78.7 % (47-70); Platelet Count 283 K/mm3 (150-450); RBC Distribution Width CV 15.4 % (11.6-14.6); RBC Distribution Width SD 55.7 fl (35.1-43.9); Red Blood Count 3.14 M/mm3 (4.6-6.2); White Blood Count 9.9 K/mm3 (4.4-11.0)
[2021-03-30 17:41] LABS: Anion Gap 6 (5-15); BUN 26 mg/dL (7-18); BUN/Creat Ratio 15.9 RATIO (10-20); Calcium,Total 8.9 mg/dL (8.5-10.1); Chloride 109 mmol/L (98-107); Creatinine, Serum 1.64 mg/dL (0.70-1.30); EST Glomerular Filtration Rate 43 mL/min (>60); Est Glom Filt Rate - Afr Amer 53 mL/min (>60); Glucose 148 mg/dL (74-106); Magnesium 2.4 mg/dL (1.6-2.6); Potassium 3.8 mmol/L (3.5-5.1); Sodium Level 141 mmol/L (136-145)
== END 2021-03-30 23:59 | disposition short-term general hospital (02) ==
PROVIDERS: PCP Internal Medicine; Referring Provider Internal Medicine Cardiovascular Disease; Visit Provider Internal Medicine Cardiovascular Disease
DX: I80.01 Phlebitis and thrombophlebitis of superficial vessels of right lower extremity (principal); J90 Pleural effusion, not elsewhere classified; L03.90 Cellulitis, unspecified; E78.00 Pure hypercholesterolemia, unspecified; I25.10 Atherosclerotic heart disease of native coronary artery without angina pectoris; I10 Essential (primary) hypertension; Z95.1 Presence of aortocoronary bypass graft; Z95.2 Presence of prosthetic heart valve; Z95.5 Presence of coronary angioplasty implant and graft; Z86.718 Personal history of other venous thrombosis and embolism
CPT/HCPCS: 36415; 71046; 80048; 83735; 85025; 93971

== ENCOUNTER 2021-04-11 08:43 | Outpatient (CLI) | payer MEDICARE, SELFPAY ==
[2021-04-11 09:35] LABS: Absolute Lymphocyte Count 0.84 X10^3/uL (0.83-4.51); Basophil# 0.03 X10^3/uL; Basophil% 0.4 % (0-1); Eosinophil# 0.52 X10^3/uL; Eosinophils% 7.6 % (0-5); Hematocrit 32.8 % (40-54); Hemoglobin 10.2 g/dL (13.0-16.5); Lymphocyte # 0.84 X10^3/ul (0.83-4.51); Lymphocyte % 12.2 % (19-41); Mean Corp Hgb Conc 31.1 g/dL (32-36); Mean Corpuscular Hgb 29.7 pg (27.0-32.0); Mean Corpuscular Volume 95.6 fL (80-94); Mean Platelet Vol. 9.5 fl (6.2-12.0); Monocyte% 5.8 % (0-10); NRBC Flagged by Analyzer 0 % (0-5); Neutrophil # 5.04 X10^3/uL (2.7-7.7); Neutrophil % 73.4 % (47-70); Platelet Count 251 K/mm3 (150-450); RBC Distribution Width SD 52.1 fl (35.1-43.9); Red Blood Count 3.43 M/mm3 (4.6-6.2); White Blood Count 6.9 K/mm3 (4.4-11.0)
[2021-04-11 09:50] LABS: Anion Gap 5 (5-15); BUN 30 mg/dL (7-18); BUN/Creat Ratio 18.4 RATIO (10-20); Calcium,Total 8.4 mg/dL (8.5-10.1); Chloride 108 mmol/L (98-107); Creatinine, Serum 1.63 mg/dL (0.70-1.30); EST Glomerular Filtration Rate 44 mL/min (>60); Est Glom Filt Rate - Afr Amer 53 mL/min (>60); Ferritin 91 ng/mL (26-388); Glucose 151 mg/dL (74-106); PSA,Total - Annual Screen 3.03 ng/mL (0.00-4.00); Potassium 4.1 mmol/L (3.5-5.1); Sodium Level 142 mmol/L (136-145)
[2021-04-11 09:55] LABS: Hemoglobin A1c 6.6 % (3.8-5.6)
== END 2021-04-11 23:59 | disposition home or self-care (01) ==
LOC: LAB 08:44
PROVIDERS: PCP Internal Medicine; Referring Provider Internal Medicine Cardiovascular Disease; Visit Provider Internal Medicine
DX: Z12.5 Encounter for screening for malignant neoplasm of prostate (principal); E11.9 Type 2 diabetes mellitus without complications; D64.9 Anemia, unspecified
CPT/HCPCS: 36415; 80048; 82728; 83036; 84153; 85025; G0103

== ENCOUNTER 2021-04-28 08:53 | Outpatient (CLI) | payer MEDICARE, SELFPAY ==
[2021-04-28 10:30] LABS: Anion Gap 8 (5-15); BUN 23 mg/dL (7-18); BUN/Creat Ratio 16.3 RATIO (10-20); Calcium,Total 8.8 mg/dL (8.5-10.1); Chloride 108 mmol/L (98-107); Creatinine, Serum 1.41 mg/dL (0.70-1.30); EST Glomerular Filtration Rate 52 mL/min (>60); Est Glom Filt Rate - Afr Amer 63 mL/min (>60); Glucose 139 mg/dL (74-106); Magnesium 2.2 mg/dL (1.6-2.6); Sodium Level 142 mmol/L (136-145)
== END 2021-04-28 23:59 | disposition home or self-care (01) ==
LOC: MTLAB 08:55
PROVIDERS: PCP Internal Medicine; Referring Provider Internal Medicine; Visit Provider Internal Medicine
DX: Z51.81 Encounter for therapeutic drug level monitoring (principal)
CPT/HCPCS: 36415; 80048; 83735

== ENCOUNTER 2021-05-01 13:39 | Outpatient (CLI) | payer MEDICARE, SELFPAY ==
--- NOTE | 2021-05-01 13:44 | PCM.CR.ITP ---
Diagnosis - General Information Admitting Diagnosis: S/P CABG, AVR, Aortoplasty @ [facility] Secondary Diagnosis: HTN, HLD, DM TYpE II, Morbid obesity due to increase calories. Personal Learning Style:: Written Barriers to Learning: Hearing Impairment - DEAF IN LEFT EAR COCHULAR IMPLANT DEVICE, Vision Impairment Stage of change r/t lifestyle modifications:: Action Gave educational material for:: Treating Heart Disease, Emotions & Heart Disease, Stress Management & Relaxation, Sleep Disorders & Heart Disease, How The Heart Works, What it means to have Heart Disease, How Coronary Artery Disease is Diagnosed, Heart Procedures, What Heart Medications Do, Risk Factors & Modifications, Living an Active Life, Nutrition - Education/Goals Individual Counseling: Initial Assessment: Abnormal Cholesterol Levels, High Blood Pressure, Overweight/Obesity, Diabetes, A. Fasting Blood Sugar >100 - 138, C. High Triglycerides >150 - 477, Low HDL <40/Males or <50/Females - 40 Cardiac Rehabilitation Goals: 1. Maintain the individual as the primary focus of care. 2. To improve the patient's quality of life. 3. Identification of cardiac risk factors and provide cardiac risk factor management. 4. Enhance the psychosocial status of the patient. 5. Reconditioning enough to allow the patient to resume customary activities. 6. Control symptoms of cardiac disease Personal Goals: Initial Assessment: Improve energy level, Participate in home exercise program, Improve muscle strength and endurance, Improve diet and eating habits (eat healthier), Control risk factors (learn risk factor modification) Scale for measuring improvement of personal goals: Enter appropriate number in Comments. 2 = Unchanged. 3 = Slightly Better. 4 = Moderate Improvement. 5 = Met my Goal - Diagnosis & Disease Process Outcomes/Goals: Pt IDs own risk factors & lifestyle modifications by Session 10, Verbalizes symptoms of angina & response by session 3., Pt independently manages Plan/Interventions: Assist Pt to ID & engage in lifestyle modification to reduce CVD risk, Instruct on individual risk factors, Review symptoms of angina & emergency actions, Review secondary diagnosis & identify educational needs. - Safety Referral to Physical Therapy: No Referral to [facility] Case Management: No Fall Risk Assessed:: Yes Assistive Devices:: None Exercise - Initial Assessment - Visit Date of Eval: 05/01/21 Session #:: 0 - PRE-CARDIAC REHAB EVALUATION Mets: Pre-: >5 METS for 30 minutes by discharge, >7 METS for 30 minutes by discharge - Physician Prescribed Exercise Modalities: Treadmill, Rower, Airdyne, NuStep, SciFit, Lateral Sustainable Systems Analyst Frequency: 3x/week for 12 weeks [36 sessions] Intensity: 60-80% of age predicted maximum heart rate reserve Current METSs:: 2.0 Target Heart Rate:: 93-121 Resting Blood Pressure: 110/70 EKG Type: SINUS RHYTHM W/1ST DEGREE AV BLOCK - Outcomes & Goals Goals:: Verbalizes understanding of THR, RPE & goal METS by session 6, Documents in home exercise log/reports 30 min aerobic 5 day/wk by DC, Demonstrates accurate pulse taking by DC - Intervention & Plan Exercise Program Goals: Instruct on personal THR & RPE, Instruct on MET level & personal MET goal, Show patient to take own pulse /validate performance until accurate, Instruct on home exercise - Physical Activity Home Exercise Physical Activity - Home Exercise: Safe Exercise, Warm-up, Self-monitoring, Cool-Down, Home Exercise > 30 min Daily, Sitting Time <3 hours/daily - Outcomes & Goals Outcomes/Goals: Demonstrates correct Warm-up/exercise Cool-Down (S3) if = 2.5 METs, Verbalizes symptoms of exercise intolerance by Session 3 (S3), Demonstrate safe equipment use (S3) & follows exercise prescrition (6) - Intervention & Plan Plan/Intervention: Instruct warm-up & cool-down if exercising at > 2 METs, Instruct on symptoms of exercise intolerance & actions to take, Instruct & monitor on saf, Assess intial functional capacity & safety risk Nutrition - Initial Assessment - Program Goals Nutrition Program Goals: LDL <100 optimal. 100 - 129 Near optimal. 130 - 159 Borderline High. 160 - 189 High. Total Cholesterol <200 desirable. 200 - 239 Borderline High. >/= 240 High. HDL < 40 Low >/=60 High. Triglycerides <150 desirable. <199 optimal. VlDL 5 - 40. HgbA1C <7%. BMI <25 Patient has diagnosis of Hyperlipidemia (ICD E78)?: Yes - Visit Date of Assessment:: 05/01/21 Session #:: 0 - PPRE-CARDIAC REHAB EVALUATION - Cholesterol/Lipids Triglycerides (mg/dL): 477 Total Cholesterol (mg/dL): 207 LDL Cholesterol (mg/dL): 0 - TNP HDL Cholesterol (mg/dL): 40 Determine presence & major risk factors that modify LDL goal: Cigarette smoking, Hypertension or hypertensive medication, Low HDL cholesterol <40 mg/dL*, Family history of premature CHD in Male < 55 years: female <65 yearsFa, Age men > 45 years; women >/= 55 years Outcomes/Goals: Pt IDs own risk factors & lifestyle modifications by Session 10, Verbalizes symptoms of angina & response by session 3., Pt independently manages Intervention/Plan: Advocate for lipid panel cholesterol medication if applicable, Instruct on personal lipid levels & lipid goals/NCEP guidelines, Instruct on cholesterol Referral to dietitian:: Yes - MEDICAL NUTRITION THERAPY - Diabetes (Other Core Measures) Diabetes Type: Diagnosis Type II ICD-10 E11 Fasting blood glucose:: 151 Hgb A1C (4.2 - 6.3): 6.6 Insulin dependent injection/pump?: Yes Non-Insulin Dependent?: Yes Do you monitor your blood sugar at home?: Yes Referral to Diabetic Clinic:: Yes Outcomes/Goals:: Able to state symptoms of, Able to state, Able to state Intervention/Plan:: Instruct on, Refer to, Instruct on - Weight Mgt (Other Care) Not Applicable: No - 0 Height: 6 ft 1 in Weight:: 260 lb BMI: 34.2 Diagnosis Overweight/Obesity BMI> 30% ICD-10 E66: Yes Diagnosis High BMI/Morbid Obesity BMI> 35% ICD-10 Z68: Yes Outcomes/Goals: Pt sets, maintains & shows weight loss goal & trend during rehab Intervention/Plan: Instruct on ideal BMI & set weight loss goal w/patient, Assist pt to ID & incorporate diet changes for weight loss by S9, Refer to Structured Weight Loss program as appropriate, Encourage goal of using 250-300dcal per session for weight loss - Healthy Eating Habits Will attend diet classes:: Yes Outcomes/Goals:: Consume diet rich in vegs,fruits,whole grain/high fiber,fish,lean meat, Limit sat/trans fats,cholesterol & added salts & sugars Intervention/Plan:: Assess current eating habits - Education Gave educational materials for:: Signs & symptoms of hypoglycemia, Signs & symptoms of hyperglycemia, Relate diabetes to coronary artery disease, Healthy eating Nutrition - 30-Day Assessment Nutrition - 60-Day Assessment Nutrition - 90-Day Assessment Nutrition - Final Assessment Medical - Initial Assessment - Visit Date of Eval: 05/01/21 Session #:: 0 - Medication Compliance Preventative Medication(s):: Aspirin, Clopidogrel/P2Y12 inhibit, Ticagrelor/P2Y12 inhibitor, Beta christie H/O mental health issues: depression, anxiety, or addiction?: Yes Doesn?t believe in the benefits of treatment?: No Believes medications are unnecessary or harmful?: No Outcomes/Goals: Verbalizes medications,desired effect & common side effects @ DC, Pt self-reports following medication regimen, Keeps card in wallet w/medications listed by DC Interventions/plans: Instruct on medication effects & side effects, Review medication list w/patient every two weeks, Instruct importance of taking meds as ordered & assist problem solving - Tobacco Use Tobacco Use: Non-smoker - Hypertension Resting Blood Pressure:: 110/70 [place] [employer] Hypertension Guidelines: [place] [employer] Hypertension Guidelines. Normal BP Less than 120/80. Elevated BP 120/80. Hypertension Stage 1: BP 130-139/80-89. Hypertesnion Stage 2: BP 140 or higher/90 or higher. Hypertension Crisis: BP higher than 180/120 Outcomes/Goals: Able to verbalize/achieve optimal blood pressure <130/80, Incorporates diet changes & exercise for blood pressure control by DC Interventions/plan: Instruct on optimal blood pressure, hypertension & medications, Instruct on effects of sodium, alcohol, stress, exercise &hypertension - Tobacco Cessation Referral Smoking Cessation Referral:: No Individual Education/Counseling:: No Education Schedule Given:: Yes Medical- 30-Day Assessment Medical- 60-Day Assessment Medical- 90-Day Assessment Medical - Final Assessment Psychosocial - Initial Assess - VIsit Date of Eval: 05/01/21 Session #:: 0 - PRE-CARDIAC REHAB EVALUATION Not Applicable: Yes History of previous Mental disease:: Yes History of Emotional Disorders: Depression - Psychosocial Test Tool Used:: Venuans VitaPortal QOL Cardiac, PHQ-9 Questionnaire phq-9 Severity: Severity. 1-4 Minimal Depression. 5-9 Mild Depression. 10-14 Moderate Depression. 15-19 Moderately Sever Depression. 20-27 Severe Depression. Rule: - Referral to Behavioral Health PS - Interventions: Yes Attend Stress Management Classes, No Referral to Behavioral Health if PHQ-9 score >9:, No Referral to [facility], No Referral to Physician if PHQ-9 if score is 5-9: - Outcomes/Goals: See list Psychosocial Outcomes/Goals:: ID's personal stressors & 2 strategies to manage stress by discharge - Intervention/Plan: See List Interventions/Plan:: Assess stressors,coping strategies & signs of derpression on admission, Instruct/assist pt to develop coping & personal stress Mgt strategies, Instruct patient to recognize signs & symptoms of depression, Instruct patient to recog Psychosocial - 30-Day Assess Psychosocial - 60-Day Assess Psychosocial - 90-Day Assess Psychosocial - Final Assessmen Patient Health Questionnaire Initial Assessment 1. Little interest or pleasure in doing things: Not at all 2. Feeling down, depressed, or hopeless: Several days 3. Trouble falling or staying asleep, or sleeping too much: Several days 4. Feeling tired or having little energy: Several days 5. Poor appetite or overeating: Not at all 6. Feeling bad about yourself -- or that you are a failure or have let yourself or your family down: Not at all 7. Trouble concentrating on things, such as reading the newspaper or watching television: Not at all 8. Moving or speaking so slowly that other people could have noticed. Or the opposite - being so fidgety or restless that you have been moving around a lot more than usual: Not at all 9. Thoughts that you would be better off , or of hurting yourself in some way: Not at all How difficult have these problems made it for you to do your work, take care of things at home, or get along with other people?: Somewhat difficult Total Score: 3 GUZMAN-Q SV Test - Statements CAD is a disease of the arteries in the heart: False Examples of risk factors for heart disease: True Angina is chest pain or discomfort: True The benefits of resistance training include: True Eating more meat and dairy products: I Don't Know Anti-platelet medications such as aspirin are important: True The only effective way to manage stress: False An exercise warm-up slowly increases heart rate: True Prepared, processed foods usually have high sodium: True Depression is common after a heart attack: True The statin medications lower cholesterol: True To control blood pressure, lower the amount of sodium: True If someone gets chest discomfort during walking: False Transfats are partially hydrogenated vegetable oils: True Sleep apnea that is not treated increases the risk: False To control cholesterol, one should become a vegetarian: False Someone knows if he/she is exercising at the right level: True Diabetes cannot be prevented with exercise & health eating: False Stress is a large risk for heart attack: True A diet that can help lower blood pressure is rich in: True - Total Score Total Correct Responses: 19 Self-Efficacy Initial Assessment We would like to know how confident you are in doing certain activities. Please select your confidence level for:: Select your confidence level for the following using the scale 1-10 where 1 is not at all confident and 10 is totally confident. Your score is the average of all 6 responses. Fatigue: How confident are you that you can keep the fatigue caused by your disease from interfering with the things you want to do? Select Number: 6 Physical Discomfort or Pain: How confident are you that you can keep the physical discomfort or pain of your disease from interfering with the things you want to do? Select Number: 6 Emotional Distress: How confident are you that you can keep the emotional distress caused by your disease from interfering with the things you want to do? Select Number: 9 Other Symptoms or Health Problems: How confident are you that you can keep other symptoms or health problems from interfering with the things you want to do? Select Number: 6 Different Tasks and Activities: How confident are you that you can do the different tasks and activities needed to manage your health condition so as to reduce your need to see a doctor? Select Number: 7 Medication: How confident are you that you can do things other than just taking medication to reduce how much your illness affects your everyday life? Select Number: 8 Total Score:: 7 Nutrition Survey - Nutrition Survey Initial Have you lost >10 lbs over the past 2 months without trying?: No Are you following a special diet at home for diabetes, low fat, or low salt?: Yes Are you interested in meeting with a dietitian for help understanding your diet?: Yes Do you eat less than 3 meals a day?: No Do you eat fatty meats (de la garza, sausage, ribs, etc), fried foods, desserts, large amounts of salad dressings, margarine, butter, or cheese most days?: No Do you have food allergies? [Enter types in comment field]: No Do you eat in restaurants more than 3 times a week?: No Do you season food with salt, seasoning salt, or garlic salt?: No Do you used canned, boxed, frozen meals, or soups, seasoning packets?: Yes Total Score:: 3
--- NOTE | 2021-05-01 13:44 | PCM.CR.HP2 ---
CR - History & Physical - General Arrival date:: 05/01/21 Arrival time:: 13:30 Date of Referral:: 04/15/21 Date of CR Evaluation:: 05/01/21 Referring Physician: DR TANGELA BROWN Primary Diagnosis: S/P CABG, AVR and AORTOPLASTY - History of Present Cardiac Event Onset Date: Enter Onset Date of cardiac illnesses in Comment field below Coronary Artery Bypass Graft:: Yes - 03/10/2021 Heart valve replacement or repair:: Yes - 03/10/2021 Type of Symptoms:: REALLY NOT EXPERIENCED AND SIGNIFICANT SYMTOMS OTHER THAN SOME SHORTNESS OF BREATH, MOST OF THE NEED FOR SURGERY WAS ADVISED BASED ON TESTS PERFORMED BY DR. BROWN Were there any complications?: SOME NERVE DAMAGE FRO ULNAR NERVE IN LEFT ARM - Sleep Disorder Evaluation Hx of Sleep Apnea: Yes Do you snore loudly (louder than talking or can be heard through closed doors)?: Yes Do you often feel tired/ fatigued/ sleepy during daytime?: No Has anyone observed you stop breathing during sleep?: Yes History of Hypertension (for STOP score): Yes - HAD BEEN TESTED IN 2005 DIAGNOSED WITH [place] AND HAS NOT USED IT SINCE IN THELAS 10 YEARS STOP Results: Positive - Medications Home Medications: Ambulatory Orders Medication Instructions Recorded allopurinol 300 mg PO DAILY 12/05/12 aspirin 81 mg PO DAILY@0800 12/05/12 multivitamin with folic acid 1 tab PO DAILY 12/05/12 alfuzosin 10 mg PO DAILY 09/16/16 tramadol 50 mg PO DAILY PRN 09/16/16 dulaglutide 0.75 mg/0.5 mL 1.5 mg SC QWEEK 09/05/17 subcutaneous pen injector finasteride 5 mg tablet 5 mg PO QDAY 09/05/17 cholecalciferol (vitamin D3) 10 10 mcg PO DAILY 12/02/20 mcg (400 unit) tablet dapagliflozin 5 mg tablet 5 mg PO DAILY 12/02/20 insulin glargine U-300 conc 300 22 unit SUBCUT QHS ml 12/02/20 unit/mL (3 mL) subcutaneous pen polyethylene glycol 3350 17 17 g PO Q15-30M #238 g 12/12/20 gram/dose oral powder rosuvastatin 40 mg tablet 40 mg PO DAILY #90 tab 01/06/21 acetaminophen 500 mg tablet 500 mg PO Q6H PRN 03/30/21 cephalexin 500 mg capsule 500 mg PO TID #30 cap 03/30/21 clopidogrel 75 mg tablet 75 mg PO DAILY 03/30/21 docusate sodium 100 mg capsule 100 mg PO BID PRN 03/30/21 furosemide 40 mg tablet 40 mg PO DAILY #30 tab 03/30/21 levothyroxine 150 mcg tablet 150 mcg PO .COMPLEX tab 03/30/21 metoprolol succinate 50 mg 50 mg PO BID tab 03/30/21 tablet,extended release 24 hr dapagliflozin [Farxiga] 5 mg PO DAILY 05/01/21 metformin 750 mg PO BID 05/01/21 triamterene-hydrochlorothiazid 1.5 tab PO DAILY 05/01/21 - Allergies Allergies/Adverse Reactions: Allergies atorvastatin [From Lipitor] Adverse Reaction (Severe, Verified 04/15/21 13:03) Myalgias simvastatin [From Zocor] Adverse Reaction (Severe, Verified 04/15/21 13:03) Myalgias Advanced Directives - Advanced Directives Power of Staker Surveying: Yes Living Will: Yes Advance Directives Information Provided: No Advance Directives on File: Yes DNR Order?:: No - MOLST See MOLST form: No Past Medical History - Covid-19 Screening Fever: No Unexplained muscle aches: No Current respiratory symptoms: No Upper respiratory infections symptoms: No Gastro-intestinal symptoms: Yes - COLITIS (INTESTINAL) Axm-Gyig-Hkonse symptoms: No Has tested positive for COVID-19 in last 30 days: No Date of testin04/23/21 - 3 SHOTS, 2 VACCINES AND THE BOOSTER Had contact w/person w/symptoms or Covid-19 (+) last 14 days: Yes 65 years or older:: Yes Lives in Assisted Living facility:: No Has a serious heart condition:: Yes Immunocompromised:: Yes Severely obese (Body Mass Index of 40 or higher):: Yes Diabetic:: Yes Has chronic kidney disease undergoing dialysis:: Yes Has liver disease:: No - Past Medical Illness Medical History: Past Medical History (Last Reviewed 04/15/21 @ 13:03 by Sharla Smith) Abdominal pain R10.9 Alcohol use Z72.89 once every 2 weeks Anemia D64.9 Arthritis M19.90 Atherosclerotic heart disease of [place] coronary artery without angina pectoris I25.10 Bloating R14.0 Cardiology follow-up encounter Z09 [place] 12/02/20 Cellulitis L03.90 Diabetes E11.9 Edema R60.9 Essential hypertension I10 Fatigue R53.83 Former smoker Z87.891 Gastric reflux K21.9 Gout M10.9 controlled on meds History of echocardiogram Z92.89 11/06/2019 [facility] Left ventricular hypertrophy I51.7 Severe, per ECHO 11/06/19 Lung nodule R91.1 Lymphocytic colitis K52.832 Meniere disease H81.09 Jarret Non-rheumatic aortic stenosis I35.0 Mod-Severe per ECHO 11/06/19 Nonrheumatic aortic (valve) insufficiency I35.1 Presence of stent in coronary artery Onset Date: ~08/16/05 Z95.5 PTCA/DAMARIS to the prox main CX 08/16/05 Prostate disease N42.9 Pure hypercholesterolemia E78.00 Stroke/cerebrovascular accident I63.9 2000 Superficial thrombosis of right lower extremity I82.811 SVT (supraventricular tachycardia) I47.1 Thoracic aortic aneurysm without rupture I71.2 Thyroid disease E07.9 Wears dentures Z97.2 Wears hearing aid Z97.4 left - Past Surgical History Surgical History: Past Surgical History (Last Reviewed 04/15/21 @ 13:03 by Sharla Smith) H/O hernia repair Z98.890, Z87.19 History of aortic valve replacement with bioprosthetic valve Onset Date: ~03/10/21 Z95.3 with Aortoplasty, Avalus 25 @ [facility] 03/10/21 History of cochlear implant Z96.21 Rt Ear History of colonoscopy Z98.890 several History of coronary artery bypass surgery Onset Date: ~03/10/21 Z95.1 CABG x2- SVG to PDa, SVg to OM 2 @ [facility] 03/10/21 History of left heart catheterization (LHC) Onset Date: ~02/03/21 Z98.890 LEFT MAIN: Mild calcification; LEFT ANTERIOR DESCENDING ARTERY: Mild luminal irregularities; PROX LAD: Mild calcification, diffuse: 25 % Stenosis; CIRCUMFLEX ARTERY: Mild luminal irregularities; PROX CIRC: Previously placed stent is patent; OM 1: Proximal - small caliber vessel: diffuse: 75 % Stenosis; RAMUS: Mild luminal irregularities, Proximal: 50 % Stenosis; RIGHT CORONARY ARTERY: MID RCA: diffuse: irregular: 75 % Stenosis; VALVE FINDINGS: Aortic Valve Calcification - moderate; AORTIC ROOT: Aneurysm RECOMMENDATIONS: Surgery consult for Valve Replacement surgery Surgery consult for coronary revascularization Surgery consult for thoracic aortic root dilatation / aneurysm per cardiac cath 02/03/21 History of right hip replacement Z96.641 Hx of cataract surgery Z98.49 Presence of coronary angioplasty implant and graft Onset Date: ~08/16/05 Z95.5 PTCA/DAMARIS to the prox main CX 08/16/05 Surgical History: angioplasty - Family History Summary Family History: Family History (Last Reviewed 04/15/21 @ 13:03 by Sharla Smith) Father CAD (coronary artery disease) Myocardial infarction Mother CAD (coronary artery disease) Brother Colon cancer Social History - Smoking History Smoking Status: Former smoker Years Smokin Packs Smoked per Day: 1.5 Hx Smoking Cessation Date: 03/07/81 Hx Tobacco Use: Yes Hx Smoking Exposure: No - Alcohol Use Alcohol Usage: Yes - NORMAL USE; MAYBE 1 OR TWO PER WEEK A BEER ADN GLASS OF WINE PRETTY TYPICAL - Substance Abuse Hx Substance Use: No - Occupation Occupation (List type of work in comments):: Retired - Hobbies, Recreation, Social Activities Hobbies: Other - GARDENING, PLAYING BRIDGE Recreational Activities: I am able to engage in most, but not all activities Social Environment - Status Marital Status: - Current Living Arrangements Living Environment:: Spouse - Children How many children do you have?: 3 Do any of your children live nearby?: Yes - [facility] - Safety Do you feel safe in your surroundings?: Yes - Assistance Do you need any assistance at home?: NONE Review of Systems - Review of Systems Hints: Right click = Denies ([place]). Left click = Reports ([place]) Review of Present Symptoms: Reports: Shortness of Breath with Exertion - YEAH I GET A LITTLE WINDED WALING BUT IT IS MINOR., Wound Healing, Dizziness/Lightheadedness - EXPERINCED WITH MAI'S DISEASE, Fatigue - A LITTLE BIT NORMAL FOR A 76 YR MAN, Appetite - Normal. Denies: Shortness of Breath at Rest, Operative Discomfort, Angina, Heart Arrhythmia/Irregularities, Appetite - Special Diet, Sleep - Normal - A LITTLE BIT LESS THAN NORMAL . FIND MYSELF WAKING UP MORE THAN NORMAL. MORE IRRATIC THAN IT WAS PRIOR TO THE SURGERY, Sexual Changes - Pain Is Patient Pain Free?: No Pain Location: back - LOWER ABCK AREA ND THE HIP IN THE AREA OF THE HIP REPLACEMENT TAKE TYLENOL FOR., lower extremity - ULCERS BOTH RIGHT AND LEGT LOWER LEG WAREA Pain Level: 2/10 Risk Factor Assessment - Chief Complaint Chief Complaint: 76 YR OLD MALE PATIENT OF DR. BROWN WHO PRESENTS TO [facility] TODAY FOLLOWING RECENT CABG , AORTIC VALVE REPLACEMENT AND AORTIC ROOT AORTOPLASTY. - Vital Signs Temperature: 98.5 F Respiratory Rate: 18 Pulse Ox: 98 Blood Pressure: 110/70 - Pulse Pulse Rate: 74 Pulse Rhythm: Regular - Hypertension Blood Pressure Sitting - Left Arm: 110/70 - Stress Stress: Recent - HAD COVID ADMITTED TO HOSPITAL, MY HEALTH ISSUES; HOWEVER WE DO WHAT YOU HAVE TO DO AND MOVE ON. - Blood Cholesterol/Lipids Total Cholesterol (mg/dL) Goal = less than 200 mg/dL: 207 HDL Cholesterol (mg/dL) Goal = less than 40 mg/dL: 40 Triglycerides (mg/dL) Goal = less than 150 mg/dL: 477 - Diabetes Diabetic History: Type II, Insulin Dependent Nutrition Referral for Diabetes: Yes - Obesity Height: 6 ft 1 in Weight:: 260 lb Weight in Pounds: 260.0 lbs Weight Source: Estimated by Staff Body Mass Index (BMI): 34.2 Nutritional Referral for Obesity: Yes - Physical Inactivity Physical Inactivity: Reg Exercise 30 min/day - Risk Stratification Risk Guidelines: Lowest Risk: Risk Factor for Smoking, Risk Factor for Dyslipidemia, Risk Factor for Hypertension, Risk Factor for Sedentary Lifestyle, Risk Factor for Depression, Moderate Risk: Risk Factor for Dyslipidemia, Risk Factor for Diabetes, Risk Factor for Sedentary Lifestyle, Highest Risk: Risk Factor for Obesity - Family History Family History: Family History (Last Reviewed 04/15/21 @ 13:03 by Sharla Smith) Father CAD (coronary artery disease) Myocardial infarction Mother CAD (coronary artery disease) Brother Colon cancer Motivation - Motivation to Participate On a scale of 1 to 10, how prepared are you to commit to attending program?: 8 - DID THE PROGRAM IN 2005, DID ALOT FOR ME THEN What do you see as barriers to successfully being able to complete the program?: WEATHER What do you see as the benefits of succesfully completing the program? In other words, what do you hope to get out of participating in the program?: HEALTHIER, BETTER LIFE, REGAINING STRENGHT, DOING WHAT I WANT TO DO AGAIN Are there issues you are dealing with that will interfere with completing the program?: NONE Do you have a spouse or signficant other, family or friends who will help support you to complete the program?: YES
[2021-05-01 14:34] VITALS: BP 110/70; PULSE 74; RESP 18; TEMP 36.9; O2SAT 98; BMI 34.2
[2021-05-01 14:52] VITALS: BP 110/70; BMI 34.2
== END 2021-05-01 23:59 | disposition home or self-care (01) ==
LOC: CR 13:41
PROVIDERS: PCP Internal Medicine; Referring Provider Internal Medicine Cardiovascular Disease; Visit Provider Internal Medicine Cardiovascular Disease
DX: I25.10 Atherosclerotic heart disease of native coronary artery without angina pectoris (principal); E11.9 Type 2 diabetes mellitus without complications; Z79.4 Long term (current) use of insulin; I10 Essential (primary) hypertension; E78.00 Pure hypercholesterolemia, unspecified; Z79.84 Long term (current) use of oral hypoglycemic drugs; Z79.82 Long term (current) use of aspirin; Z79.899 Other long term (current) drug therapy; Z87.891 Personal history of nicotine dependence

== ENCOUNTER 2021-05-04 14:05 | Outpatient (RCR) | payer MEDICARE, SELFPAY | END 2021-05-04 23:59 | disposition home or self-care (01) | LOC: CR 14:05 | PROVIDERS: PCP Internal Medicine; Referring Provider Internal Medicine Cardiovascular Disease; Visit Provider Internal Medicine Cardiovascular Disease | DX: Z95.1 Presence of aortocoronary bypass graft (principal); Z95.3 Presence of xenogenic heart valve | CPT/HCPCS: 93798 ==

== ENCOUNTER 2021-06-03 10:30 | Outpatient (RCR) | payer MEDICARE, SELFPAY ==
--- NOTE | 2021-05-27 13:09 | PCM.CR.ITP ---
Diagnosis - General Information Admitting Diagnosis: S/P CABG, AVR Exercise - 30-day Assessment - Visit Date of Eval: 05/27/21 Session #:: 11 - Physician Prescribed Exercise Modalities: Treadmill, NuStep, SciFit Frequency: 3x/week for 12 weeks [36 sessions] Intensity: 60-80% of age predicted maximum heart rate reserve Current METSs:: 3 Target Heart Rate:: 93-121 Current RPE:: 9-11 Maximum Excercise HR:: 112 Resting Blood Pressure: 130/60 Maximum Exercise Blood Pressure: 134/70 EKG Type: SR w/1st degree AV block, rare to occas PAC and PVC. - Outcomes & Goals Goals:: Verbalizes understanding of THR, RPE & goal METS by session 6, Documents in home exercise log/reports 30 min aerobic 5 day/wk by DC, Demonstrates accurate pulse taking by DC, Other additional outcome/goals: see below - Intervention & Plan Exercise Program Goals: Instruct on personal THR & RPE, Instruct on MET level & personal MET goal, Show patient to take own pulse /validate performance until accurate, Instruct on home exercise, Other additional plan/int - 30-day Reassessments 30 day Reassessments:: Progressing - Physical Activity Home Exercise Physical Activity - Home Exercise: Safe Exercise, Warm-up, Self-monitoring, Cool-Down, Home Exercise > 30 min Daily, Sitting Time <3 hours/daily - Outcomes & Goals Outcomes/Goals: Demonstrates correct Warm-up/exercise Cool-Down (S3) if = 2.5 METs, Verbalizes symptoms of exercise intolerance by Session 3 (S3), Demonstrate safe equipment use (S3) & follows exercise prescrition (6), Other: See below - Intervention & Plan Plan/Intervention: Instruct warm-up & cool-down if exercising at > 2 METs, Instruct on symptoms of exercise intolerance & actions to take, Instruct & monitor on saf, Assess intial functional capacity & safety risk, Other See below - 30-day Reassessments 30 day Reassessments:: Progressing Nutrition - Initial Assessment Nutrition - 30-Day Assessment - Program Goals Nutrition Program Goals: LDL <100 optimal. 100 - 129 Near optimal. 130 - 159 Borderline High. 160 - 189 High. Total Cholesterol <200 desirable. 200 - 239 Borderline High. >/= 240 High. HDL < 40 Low >/=60 High. Triglycerides <150 desirable. <199 optimal. VlDL 5 - 40. HgbA1C <7%. BMI <25 Patient has diagnosis of Hyperlipidemia (ICD E78)?: Yes - Visit Date of Assessment:: 05/27/21 Session #:: 11 - Cholesterol/Lipids Determine presence & major risk factors that modify LDL goal: Cigarette smoking, Hypertension or hypertensive medication, Low HDL cholesterol <40 mg/dL*, Family history of premature CHD in Male < 55 years: female <65 yearsFa, Age men > 45 years; women >/= 55 years Outcomes/Goals: Pt IDs own risk factors & lifestyle modifications by Session 10, Verbalizes symptoms of angina & response by session 3., Pt independently manages, Other Additional Outcomes/Goals: Intervention/Plan: Advocate for lipid panel cholesterol medication if applicable, Instruct on personal lipid levels & lipid goals/NCEP guidelines, Instruct on cholesterol, Other additional plan/int Referral to dietitian:: Yes - medical nutrition therapy 30-day Reassessments:: Progressing - Diabetes (Other Core Measures) Diabetes Type: Diagnosis Type II ICD-10 E11 Insulin dependent injection/pump?: Yes Do you monitor your blood sugar at home?: Yes Referral to Diabetic Clinic:: Yes Outcomes/Goals:: Able to state symptoms of, Able to state, Able to state, Other additional Intervention/Plan:: Instruct on, Refer to, Instruct on, Other 30-day Reassessments:: Progressing - Weight Mgt (Other Care) Height: 6 ft 1 in Weight:: 113.625 kg BMI: 33.0 Diagnosis Overweight/Obesity BMI> 30% ICD-10 E66: Yes Diagnosis High BMI/Morbid Obesity BMI> 35% ICD-10 Z68: Yes Outcomes/Goals: Pt sets, maintains & shows weight loss goal & trend during rehab, Other additional outcomes/goals Intervention/Plan: Instruct on ideal BMI & set weight loss goal w/patient, Assist pt to ID & incorporate diet changes for weight loss by S9, Refer to Structured Weight Loss program as appropriate, Encourage goal of using 250-300dcal per session for weight loss, Other additional plan/interventions 30 day Reassessments:: Progressing - Healthy Eating Habits Will attend diet classes:: Yes Outcomes/Goals:: Consume diet rich in vegs,fruits,whole grain/high fiber,fish,lean meat, Limit sat/trans fats,cholesterol & added salts & sugars, Other additional outcome/goals: Intervention/Plan:: Assess current eating habits, Other Additional plan/interventions 30-day Reassessments:: Progressing - Education Gave educational materials for:: Signs & symptoms of hypoglycemia, Signs & symptoms of hyperglycemia, Relate diabetes to coronary artery disease, Healthy eating Nutrition - 60-Day Assessment Nutrition - 90-Day Assessment Nutrition - Final Assessment Medical - Initial Assessment Medical- 30-Day Assessment - Visit Date of Eval: 05/27/21 Session #:: 11 - Medication Compliance Preventative Medication(s):: Aspirin, Clopidogrel/P2Y12 inhibit, Ticagrelor/P2Y12 inhibitor, Beta christie H/O mental health issues: depression, anxiety, or addiction?: Yes Doesn?t believe in the benefits of treatment?: No Believes medications are unnecessary or harmful?: No Has a concern about medication side effects?: No Expresses concern over the cost of medications?: No Outcomes/Goals: Verbalizes medications,desired effect & common side effects @ DC, Pt self-reports following medication regimen, Keeps card in wallet w/medications listed by DC, Other additional outcome/goals: Interventions/plans: Instruct on medication effects & side effects, Review medication list w/patient every two weeks, Instruct importance of taking meds as ordered & assist problem solving, Other additional 30-day Reassessments:: Progressing - Tobacco Use Tobacco Use: Non-smoker - Hypertension Hypertension Diagnosis:: Hypertension ICD-10 I10 Resting Blood Pressure:: 130/30 [place] [employer] Hypertension Guidelines: [place] [employer] Hypertension Guidelines. Normal BP Less than 120/80. Elevated BP 120/80. Hypertension Stage 1: BP 130-139/80-89. Hypertesnion Stage 2: BP 140 or higher/90 or higher. Hypertension Crisis: BP higher than 180/120 Peak Exercise Blood Pressure:: 134/70 Outcomes/Goals: Able to verbalize/achieve optimal blood pressure <130/80, Incorporates diet changes & exercise for blood pressure control by DC, Other additional outcomes/goals Interventions/plan: Instruct on optimal blood pressure, hypertension & medications, Instruct on effects of sodium, alcohol, stress, exercise &hypertension, Other additional plan/interventions 30 day Reassessments:: Progressing - Tobacco Cessation Referral Smoking Cessation Referral:: No Individual Education/Counseling:: No Education Schedule Given:: Yes Medical- 60-Day Assessment Medical- 90-Day Assessment Medical - Final Assessment Psychosocial - Initial Assess Psychosocial - 30-Day Assess - VIsit Date of Eval: 05/27/21 History of previous Mental disease:: Yes History of Emotional Disorders: Depression - Outcomes/Goals: See list Psychosocial Outcomes/Goals:: ID's personal stressors & 2 strategies to manage stress by discharge, Other Additional outcome/goals: - Intervention/Plan: See List Interventions/Plan:: Assess stressors,coping strategies & signs of derpression on admission, Instruct/assist pt to develop coping & personal stress Mgt strategies, Refer to Behavioral Health if appropriate, Refer to Physician if appropriate, Instruct patient to recognize signs & symptoms of depression, Instruct patient to recog, Other additional plan/intervention - 30-day Reassessments: 30 day Reassessments:: Progressing Psychosocial - 60-Day Assess Psychosocial - 90-Day Assess Psychosocial - Final Assessmen Patient Health Questionnaire 30-Day Re-eval Assessment 1. Little interest or pleasure in doing things: Not at all 2. Feeling down, depressed, or hopeless: Several days 3. Trouble falling or staying asleep, or sleeping too much: Several days 4. Feeling tired or having little energy: Several days 5. Poor appetite or overeating: Not at all 6. Feeling bad about yourself -- or that you are a failure or have let yourself or your family down: Not at all 7. Trouble concentrating on things, such as reading the newspaper or watching television: Not at all 8. Moving or speaking so slowly that other people could have noticed. Or the opposite - being so fidgety or restless that you have been moving around a lot more than usual: Not at all 9. Thoughts that you would be better off , or of hurting yourself in some way: Not at all How difficult have these problems made it for you to do your work, take care of things at home, or get along with other people?: Somewhat difficult Total Score: 3 Self-Efficacy 30-Day Re-eval Assessment We would like to know how confident you are in doing certain activities. Please select your confidence level for:: Select your confidence level for the following using the scale 1-10 where 1 is not at all confident and 10 is totally confident. Your score is the average of all 6 responses. Fatigue: How confident are you that you can keep the fatigue caused by your disease from interfering with the things you want to do? Select Number: 6 Physical Discomfort or Pain: How confident are you that you can keep the physical discomfort or pain of your disease from interfering with the things you want to do? Select Number: 6 Emotional Distress: How confident are you that you can keep the emotional distress caused by your disease from interfering with the things you want to do? Select Number: 9 Other Symptoms or Health Problems: How confident are you that you can keep other symptoms or health problems from interfering with the things you want to do? Select Number: 6 Different Tasks and Activities: How confident are you that you can do the different tasks and activities needed to manage your health condition so as to reduce your need to see a doctor? Select Number: 7 Medication: How confident are you that you can do things other than just taking medication to reduce how much your illness affects your everyday life? Select Number: 8 Total Score:: 7 Nutrition Survey
[2021-05-27 13:22] VITALS: BP 130/30; BP 130/60; BP 134/70; BMI 33.0
== END 2021-06-04 23:59 | disposition home or self-care (01) ==
LOC: CR 10:30
PROVIDERS: PCP Internal Medicine; Referring Provider Internal Medicine Cardiovascular Disease; Visit Provider Internal Medicine Cardiovascular Disease
DX: Z95.1 Presence of aortocoronary bypass graft (principal); Z95.3 Presence of xenogenic heart valve
CPT/HCPCS: 93798

== ENCOUNTER → 2021-06-26 | Outpatient (CLI) | payer MEDICARE, SELFPAY ==
[2021-05-27 13:22] VITALS: BMI 33.0
[2021-06-24 07:21] VITALS: BMI 32.5
--- NOTE | 2021-06-26 11:00 | NEURO_ITS ---
NCS and/or EMG Patient Report Indication: Left hand weakness and associated numbness in digits 4/5. Symptoms began in March 2021 immediately following a cardiac surgery. Evaluate for entrapment neuropathy. Findings: Nerve conduction studies were performed in the left upper extremity. Some comparison studies were performed in the contralateral arm. The left median motor study recording the abductor pollicis brevis showed a normal amplitude, prolonged distal latency and slowed conduction velocity. The left ulnar motor study recording the abductor digiti minimi showed a markedly reduced amplitude, normal distal latency and slowed conduction velocity. Focal slowing was present across the elbow. By comparison, the right ulnar motor study revealed a normal amplitude. The left median sensory response recording digit two showed a reduced amplitude, prolonged latency and slowed conduction velocity. The left ulnar sensory response recording digit five showed a markedly reduced amplitude, prolonged latency and slowed conduction velocity. The right ulnar sensory response was borderline in amplitude, but significantly asymmetric when compared to the left. The left radial sensory response recording over the extensor snuff box showed a normal amplitude, latency and conduction velocity. Needle EMG of the left upper extremity muscles was performed. Active denervation was seen in first dorsal interosseous and flexor digitorum profundus (IV) muscles. Motor units in the first dorsal interosseous were distant and rapidly firing. Motor units in the flexor digitorum profundus (IV) were large, long duration with markedly reduced recruitment. Motor units in the triceps and flexor carpi radialis were slightly large, slightly long with normal recruitmen t. Impression: This is a markedly abnormal and complex study. 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 The pathophysiology is demy elinating, however, there is a significant degree of secondary axonal loss. That said, the nerve appears to be in continuity. 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 3.) A mild, chronic, left C7 radiculopathy. There is no active denervation to suggest ongoing motor axon loss in affected muscles. Fareed Beckett D.O. Multi Select Codes Neurology Neurology Interp Codes: 70404-00 Musc test done w/n test comp (interp) and 59825-42 Nrv cndj test 7-8 studies (interp)
== END | disposition home or self-care (01) ==
LOC: PSN 09:00
PROVIDERS: PCP Internal Medicine; Referring Provider Internal Medicine; Visit Provider Internal Medicine
DX: R29.898 Other symptoms and signs involving the musculoskeletal system (principal)
CPT/HCPCS: 95886; 95910

== ENCOUNTER → 2021-06-29 | Outpatient (CLI) | payer MEDICARE, SELFPAY ==
[2021-05-27 13:22] VITALS: BMI 33.0
[2021-06-24 07:21] VITALS: BMI 32.5
--- NOTE | 2021-06-29 08:05 | ECHOD_ITS ---
Reason For Study: vavle replacement eval Procedure This was a 2D Doppler, Color Flow transthoracic echocardiogram. The exam was of adequate technical quality. Exam performed in department. Left Ventricle Normal LV size. Mild concentric left ventricular hypertrophy. Left ventricular systolic function is normal. The estimated ejection fraction is 60 %. Post operative septal motion. Diastolic function is indeterminate. Right Ventricle Normal RV size. Normal systolic function. Atria Normal left atrium. Normal right atrium. No doppler evidence for ASD. Mitral Valve There is no mitral annular calcification. Mild focal mitral valve calcification of the anterior leaflet. Trivial mitral valve insufficiency. Tricuspid Valve Normal tricuspid valve. Trivial tricuspid valve insufficiency. Unable to estimate RV systolic pressure due to insufficient tricuspid regurgitant envelope. Aortic Valve Stable appearing bioprosthetic aortic valve apparatus. Pulmonic Valve The pulmonic valve is not well visualized. Great Vessels Normal sized aortic root. Pericardium/Pleural No pericardial effusion. MMode/2D Measurements & Calculations LVIDd: 4.6 cm IVSd: 1.3 cm LVOT diam: 2.0 cm LVIDs: 2.7 cm LVPWd: 1.4 cm LVOT area: 3.3 cm2 RVDd: 3.9 cm FS: 39.9 % Ao root diam: 3.5 cm LAV(MOD-sp4): 42.6 ml LVAd ap4: 31.0 cm2 LVLd ap4: 8.4 cm EDV(MOD-sp4): 93.0 ml EDV(sp4-el): 96.6 ml LVAs ap4: 17.0 cm2 LVLs ap4: 7.1 cm ESV(MOD-sp4): 37.3 ml ESV(sp4-el): 34.7 ml EF(MOD-sp4): 59.8 % EF(sp4-el): 64.1 % LVAd ap2: 28.1 cm2 SV(MOD-sp4): 55.6 ml SV(MOD-sp2): 44.7 ml LVLd ap2: 8.3 cm EDV(MOD-sp2): 78.9 ml EDV(sp2-el): 81.0 ml LVAs ap2: 17.4 cm2 LVLs ap2: 7.7 cm ESV(MOD-sp2): 34.1 ml ESV(sp2-el): 33.1 ml EF(MOD-sp2): 56.7 % SV(sp4-el): 62.0 ml LA dimension(2D): 3.5 cm LA A4 area: 18.7 cm2 RA A4 area: 13.1 cm2 Doppler Measurements & Calculations MV E max vasiliy: 73.6 cm/sec Lat Peak E' Vasiliy: 8.4 cm/sec Med Peak E' Vasiliy: 5.6 cm/sec MV A max vasiliy: 105.5 cm/sec E/E' lat: 8.8 E/E' med: 13.1 MV E/A: 0.70 Ao V2 max: 256.4 cm/sec LV V1 max: 117.8 cm/sec SV(LVOT): 77.6 ml Ao max P.3 mmHg LV V1 max P.6 mmHg Ao V2 mean: 185.1 cm/sec LV V1 mean P.1 mmHg Ao mean P.0 mmHg LV V1 mean: 82.8 cm/sec Ao V2 VTI: 52.7 cm LV V1 VTI: 23.7 cm CHEMA(I,D): 1.5 cm2 CHEMA(V,D): 1.5 cm2 PA V2 max: 105.8 cm/sec ECHO/Echo Complete Interpretation Summary Left ventricular systolic function is normal. The estimated ejection fraction is 60 %. Mild concentric left ventricular hypertrophy. Post operative septal motion. Mild focal mitral valve calcification of the anterior leaflet. Trivial mitral valve insufficiency. Trivial tricuspid valve insufficiency. Stable appearing bioprosthetic aortic valve apparatus. Unable to estimate RV systolic pressure due to insufficient tricuspid regurgita nt envelope. Diastolic function is indeterminate. Ordering Physician: Sharla Gomes Referring Physician: Sharla Gomes Performed By: Brenda Kilgore RCS
== END | disposition home or self-care (01) ==
LOC: CVS 08:04
PROVIDERS: PCP Internal Medicine; Referring Provider Physician Assistant Medical; Visit Provider Physician Assistant Medical
DX: I25.10 Atherosclerotic heart disease of native coronary artery without angina pectoris (principal)
CPT/HCPCS: 93306

== ENCOUNTER 2021-07-03 10:30 | Outpatient (RCR) | payer MEDICARE, SELFPAY ==
[2021-05-27 13:22] VITALS: BMI 33.0
[2021-06-05 00:44] VITALS: BP 130/30; BP 130/60; BP 134/70
--- NOTE | 2021-06-24 07:11 | PCM.CR.ITP ---
Diagnosis Exercise - 60-day Assessment - Visit Date of Eval: 06/24/21 Session #:: 21 - Physician Prescribed Exercise Modalities: Treadmill, NuStep, SciFit Frequency: 3x/week for 12 weeks [36 sessions] Intensity: 60-80% of age predicted maximum heart rate reserve Current METSs:: 5.0 Target Heart Rate:: 93-121 Current RPE:: 11 Maximum Excercise HR:: 109 Resting Blood Pressure: 138/76 Maximum Exercise Blood Pressure: 142/72 EKG Type: NSR to sinus tach w/occasional PVC and PAC Current Physical Activity or Exercising minutes: 41:21 - Outcomes & Goals Goals:: Verbalizes understanding of THR, RPE & goal METS by session 6, Documents in home exercise log/reports 30 min aerobic 5 day/wk by DC, Demonstrates accurate pulse taking by DC - Intervention & Plan Exercise Program Goals: Instruct on personal THR & RPE, Instruct on MET level & personal MET goal, Show patient to take own pulse /validate performance until accurate, Instruct on home exercise - 30-day Reassessments 30 day Reassessments:: Progressing - Physical Activity Home Exercise Physical Activity - Home Exercise: Safe Exercise, Warm-up, Self-monitoring, Cool-Down, Home Exercise > 30 min Daily, Sitting Time <3 hours/daily - Outcomes & Goals Outcomes/Goals: Demonstrates correct Warm-up/exercise Cool-Down (S3) if = 2.5 METs, Verbalizes symptoms of exercise intolerance by Session 3 (S3), Demonstrate safe equipment use (S3) & follows exercise prescrition (6) - Intervention & Plan Plan/Intervention: Instruct warm-up & cool-down if exercising at > 2 METs, Instruct on symptoms of exercise intolerance & actions to take, Instruct & monitor on saf, Assess intial functional capacity & safety risk - 30-day Reassessments 30 day Reassessments:: Met Nutrition - Initial Assessment Nutrition - 30-Day Assessment Nutrition - 60-Day Assessment - Program Goals Nutrition Program Goals: LDL <100 optimal. 100 - 129 Near optimal. 130 - 159 Borderline High. 160 - 189 High. Total Cholesterol <200 desirable. 200 - 239 Borderline High. >/= 240 High. HDL < 40 Low >/=60 High. Triglycerides <150 desirable. <199 optimal. VlDL 5 - 40. HgbA1C <7%. BMI <25 Patient has diagnosis of Hyperlipidemia (ICD E78)?: Yes - Visit Date of Assessment:: 06/24/21 Session #:: 21 - Cholesterol/Lipids Triglycerides (mg/dL): 477 Total Cholesterol (mg/dL): 207 HDL Cholesterol (mg/dL): 40 Determine presence & major risk factors that modify LDL goal: Hypertension or hypertensive medication, Family history of premature CHD in Male < 55 years: female <65 yearsFa, Age men > 45 years; women >/= 55 years Outcomes/Goals: Pt IDs own risk factors & lifestyle modifications by Session 10, Verbalizes symptoms of angina & response by session 3., Pt independently manages Intervention/Plan: Instruct on personal lipid levels & lipid goals/NCEP guidelines, Instruct on cholesterol Referral to dietitian:: Yes - medical nutrition therapy 30-day Reassessments:: Progressing - Diabetes (Other Core Measures) Diabetes Type: Diagnosis Type II ICD-10 E11 Fasting blood glucose:: 151 Hgb A1C (4.2 -6.3): 6.6 Insulin dependent injection/pump?: Yes Non-Insulin Dependent?: Yes Do you monitor your blood sugar at home?: Yes Referral to Diabetic Clinic:: Yes Outcomes/Goals:: Able to state symptoms of, Able to state, Able to state Intervention/Plan:: Instruct on, Refer to, Instruct on 30-day Reassessments:: Progressing - Weight Mgt (Other Care) Not Applicable: No Height: 6 ft 1 in Weight:: 247 lb BMI: 32.5 Diagnosis Overweight/Obesity BMI> 30% ICD-10 E66: Yes Diagnosis High BMI/Morbid Obesity BMI> 35% ICD-10 Z68: No Outcomes/Goals: Pt sets, maintains & shows weight loss goal & trend during rehab Intervention/Plan: Instruct on ideal BMI & set weight loss goal w/patient, Assist pt to ID & incorporate diet changes for weight loss by S9, Refer to Structured Weight Loss program as appropriate, Encourage goal of using 250-300dcal per session for weight loss 30 day Reassessments:: Progressing - Healthy Eating Habits Will attend diet classes:: Yes Outcomes/Goals:: Consume diet rich in vegs,fruits,whole grain/high fiber,fish,lean meat, Limit sat/trans fats,cholesterol & added salts & sugars Intervention/Plan:: Assess current eating habits 30-day Reassessments:: Progressing - Education Gave educational materials for:: Signs & symptoms of hypoglycemia, Signs & symptoms of hyperglycemia, Relate diabetes to coronary artery disease, Healthy eating Nutrition - 90-Day Assessment Nutrition - Final Assessment Medical - Initial Assessment Medical- 30-Day Assessment Medical- 60-Day Assessment - Visit Date of Eval: 06/24/21 Session #:: 21 - Medication Compliance Preventative Medication(s):: Aspirin, Clopidogrel/P2Y12 inhibit, Statin/lipid, Beta christie H/O mental health issues: depression, anxiety, or addiction?: No Doesn?t believe in the benefits of treatment?: No Believes medications are unnecessary or harmful?: No Has a concern about medication side effects?: No Expresses concern over the cost of medications?: No Outcomes/Goals: Verbalizes medications,desired effect & common side effects @ DC, Pt self-reports following medication regimen, Keeps card in wallet w/medications listed by DC Interventions/plans: Instruct on medication effects & side effects, Review medication list w/patient every two weeks, Instruct importance of taking meds as ordered & assist problem solving 30-day Reassessments:: Met - Tobacco Use Tobacco Use: Non-smoker - Hypertension Hypertension Diagnosis:: Hypertension ICD-10 I10 Resting Blood Pressure:: 136/76 [place] [employer] Hypertension Guidelines: [place] [employer] Hypertension Guidelines. Normal BP Less than 120/80. Elevated BP 120/80. Hypertension Stage 1: BP 130-139/80-89. Hypertesnion Stage 2: BP 140 or higher/90 or higher. Hypertension Crisis: BP higher than 180/120 Peak Exercise Blood Pressure:: 148/72 Outcomes/Goals: Able to verbalize/achieve optimal blood pressure <130/80, Incorporates diet changes & exercise for blood pressure control by DC Interventions/plan: Instruct on optimal blood pressure, hypertension & medications, Instruct on effects of sodium, alcohol, stress, exercise &hypertension 30 day Reassessments:: Progressing - Tobacco Cessation Referral Smoking Cessation Referral:: No Individual Education/Counseling:: No Education Schedule Given:: Yes Medical- 90-Day Assessment Medical - Final Assessment Psychosocial - Initial Assess Psychosocial - 30-Day Assess Psychosocial - 60-Day Assess - VIsit Date of Eval: 06/24/21 Session #:: 21 Not Applicable: Yes History of previous Mental disease:: No - Psychosocial Test Tool Used:: PHQ-9 Questionnaire phq-9 Severity: Severity. 1-4 Minimal Depression. 5-9 Mild Depression. 10-14 Moderate Depression. 15-19 Moderately Sever Depression. 20-27 Severe Depression. Rule: - Referral to Behavioral Health PS - Interventions: Yes Attend Stress Management Classes, No Referral to Behavioral Health if PHQ-9 score >9:, No Referral to [facility], No Referral to Physician if PHQ-9 if score is 5-9: - Outcomes/Goals: See list Psychosocial Outcomes/Goals:: ID's personal stressors & 2 strategies to manage stress by discharge - Intervention/Plan: See List Interventions/Plan:: Assess stressors,coping strategies & signs of derpression on admission, Instruct/assist pt to develop coping & personal stress Mgt strategies, Instruct patient to recognize signs & symptoms of depression, Instruct patient to recog - 30-day Reassessments: 30 day Reassessments:: Progressing Psychosocial - 90-Day Assess Psychosocial - Final Assessmen Patient Health Questionnaire 60-Day Re-eval Assessment 1. Little interest or pleasure in doing things: Not at all 2. Feeling down, depressed, or hopeless: Several days 3. Trouble falling or staying asleep, or sleeping too much: Several days 4. Feeling tired or having little energy: Not at all 5. Poor appetite or overeating: Not at all 6. Feeling bad about yourself -- or that you are a failure or have let yourself or your family down: Not at all 7. Trouble concentrating on things, such as reading the newspaper or watching television: Not at all 8. Moving or speaking so slowly that other people could have noticed. Or the opposite - being so fidgety or restless that you have been moving around a lot more than usual: Not at all How difficult have these problems made it for you to do your work, take care of things at home, or get along with other people?: Not difficult at all Total Score: 2 Self-Efficacy 60-Day Re-eval Assessment We would like to know how confident you are in doing certain activities. Please select your confidence level for:: Select your confidence level for the following using the scale 1-10 where 1 is not at all confident and 10 is totally confident. Your score is the average of all 6 responses. Fatigue: How confident are you that you can keep the fatigue caused by your disease from interfering with the things you want to do? Select Number: 7 Physical Discomfort or Pain: How confident are you that you can keep the physical discomfort or pain of your disease from interfering with the things you want to do? Select Number: 7 Emotional Distress: How confident are you that you can keep the emotional distress caused by your disease from interfering with the things you want to do? Select Number: 9 Other Symptoms or Health Problems: How confident are you that you can keep other symptoms or health problems from interfering with the things you want to do? Select Number: 8 Different Tasks and Activities: How confident are you that you can do the different tasks and activities needed to manage your health condition so as to reduce your need to see a doctor? Select Number: 9 Medication: How confident are you that you can do things other than just taking medication to reduce how much your illness affects your everyday life? Select Number: 10 Total Score:: 8 Nutrition Survey
[2021-06-24 07:21] VITALS: BP 136/76; BP 138/76; BP 148/72; BMI 32.5
== END 2021-07-04 23:59 ==
LOC: CR 10:30
PROVIDERS: PCP Internal Medicine; Referring Provider Internal Medicine Cardiovascular Disease; Visit Provider Internal Medicine Cardiovascular Disease
DX: Z95.1 Presence of aortocoronary bypass graft (principal); Z95.3 Presence of xenogenic heart valve
CPT/HCPCS: 93798

== ENCOUNTER 2021-07-31 10:30 | Outpatient (RCR) | payer MEDICARE, SELFPAY ==
[2021-06-24 07:21] VITALS: BMI 32.5
[2021-07-05 00:37] VITALS: BP 136/76; BP 138/76; BP 148/72
--- NOTE | 2021-07-27 06:36 | CR.ITP_ITS ---
Diagnosis Exercise - 90-day Assessment - Visit Date of Eval: 07/27/21 Session #:: 33 Comments:: Patient will be physician excused starting 07/27/2021 through 08/05/2021 due to surgery. He is released to return on Tuesday08/05/2021. - Physician Prescribed Exercise Modalities: Treadmill, NuStep, SciFit Frequency: 3x/week for 12 weeks [36 sessions] Intensity: 60-80% of age predicted maximum heart rate reserve Current METSs:: 5.5 Target Heart Rate:: 93-121 Current RPE:: 12-13 Maximum Excercise HR:: 111 Resting Blood Pressure: 108/72 Maximum Exercise Blood Pressure: 144/70 EKG Type: NSR to sinus tach with rare PAC and PVC Current Physical Activity or Exercising minutes: 38 - Outcomes & Goals Goals:: Verbalizes understanding of THR, RPE & goal METS by session 6, Documents in home exercise log/reports 30 min aerobic 5 day/wk by DC, Demonstrates accurate pulse taking by DC - Intervention & Plan Exercise Program Goals: Instruct on personal THR & RPE, Instruct on MET level & personal MET goal, Show patient to take own pulse /validate performance until accurate, Instruct on home exercise - 30-day Reassessments 30 day Reassessments:: Met - Patient has met his pre-program goals! - Physical Activity Home Exercise Physical Activity - Home Exercise: Safe Exercise, Warm-up, Self-monitoring, Cool-Down, Home Exercise > 30 min Daily, Sitting Time <3 hours/daily - Outcomes & Goals Outcomes/Goals: Demonstrates correct Warm-up/exercise Cool-Down (S3) if = 2.5 METs, Verbalizes symptoms of exercise intolerance by Session 3 (S3), Demonstrate safe equipment use (S3) & follows exercise prescrition (6) - Intervention & Plan Plan/Intervention: Instruct warm-up & cool-down if exercising at > 2 METs, Instruct on symptoms of exercise intolerance & actions to take, Instruct & monitor on saf, Assess intial functional capacity & safety risk - 30-day Reassessments 30 day Reassessments:: Met Nutrition - Initial Assessment Nutrition - 30-Day Assessment Nutrition - 60-Day Assessment Nutrition - 90-Day Assessment - Program Goals Nutrition Program Goals: LDL <100 optimal. 100 - 129 Near optimal. 130 - 159 Borderline High. 160 - 189 High. Total Cholesterol <200 desirable. 200 - 239 Borderline High. >/= 240 High. HDL < 40 Low >/=60 High. Triglycerides <150 desirable. <199 optimal. VlDL 5 - 40. HgbA1C <7%. BMI <25 Patient has diagnosis of Hyperlipidemia (ICD E78)?: Yes - Visit Date of Assessment:: 07/27/21 Session #:: 33 - Cholesterol/Lipids Triglycerides (mg/dL): 477 - 02/08/2020 Total Cholesterol (mg/dL): 207 HDL Cholesterol (mg/dL): 40 Determine presence & major risk factors that modify LDL goal: Hypertension or hypertensive medication, Age men > 45 years; women >/= 55 years Outcomes/Goals: Pt IDs own risk factors & lifestyle modifications by Session 10, Verbalizes symptoms of angina & response by session 3., Pt independently manages Intervention/Plan: Instruct on personal lipid levels & lipid goals/NCEP guidelines, Instruct on cholesterol - Diabetes (Other Core Measures) Diabetes Type: Diagnosis Type II ICD-10 E11 Fasting blood glucose:: 151 Hgb A1C (4.2 - 6.3): 6.6 Insulin dependent injection/pump?: Yes Non-Insulin Dependent?: Yes Do you monitor your blood sugar at home?: Yes Outcomes/Goals:: Able to state symptoms of, Able to state, Able to state Intervention/Plan:: Instruct on, Instruct on 30-day Reassessments:: Met - Weight Mgt (Other Care) Not Applicable: No Height: 6 ft 1 in Weight:: 245 lb BMI: 32.3 Diagnosis Overweight/Obesity BMI> 30% ICD-10 E66: Yes Diagnosis High BMI/Morbid Obesity BMI> 35% ICD-10 Z68: No Outcomes/Goals: Pt sets, maintains & shows weight loss goal & trend during rehab Intervention/Plan: Instruct on ideal BMI & set weight loss goal w/patient, Assist pt to ID & incorporate diet changes for weight loss by S9, Encourage goal of using 250-300dcal per session for weight loss 30 day Reassessments:: Progressing - Healthy Eating Habits Will attend diet classes:: Yes Outcomes/Goals:: Consume diet rich in vegs,fruits,whole grain/high fiber,fish,lean meat, Limit sat/trans fats,cholesterol & added salts & sugars Intervention/Plan:: Assess current eating habits 30-day Reassessments:: Progressing - Education Gave educational materials for:: Signs & symptoms of hypoglycemia, Signs & symptoms of hyperglycemia, Relate diabetes to coronary artery disease, Healthy eating Nutrition - Final Assessment Medical - Initial Assessment Medical- 30-Day Assessment Medical- 60-Day Assessment Medical- 90-Day Assessment - Visit Date of Eval: 07/27/21 Session #:: 33 - Medication Compliance Preventative Medication(s):: Aspirin, Clopidogrel/P2Y12 inhibit, Statin/lipid, Beta christie H/O mental health issues: depression, anxiety, or addiction?: No Doesn?t believe in the benefits of treatment?: No Believes medications are unnecessary or harmful?: No Has a concern about medication side effects?: No Expresses concern over the cost of medications?: No Outcomes/Goals: Verbalizes medications,desired effect & common side effects @ DC, Pt self-reports following medication regimen, Keeps card in wallet w/medic ations listed by DC Interventions/plans: Instruct on medication effects & side effects, Review medication list w/patient every two weeks, Instruct importance of taking meds as ordered & assist problem solving 30-day Reassessments:: Met - Tobacco Use Tobacco Use: Non-smoker - Hypertension Hypertension Diagnosis:: Hypertension ICD-10 I10 Resting Blood Pressure:: 108/72 [place] [employer] Hypertension Guidelines: [place] [employer] Hypertension Guidelines. Normal BP Less than 120/80. Elevated BP 120/80. Hypertension Stage 1: BP 130-139/80-89. Hypertesnion Stage 2: BP 140 or higher/90 or higher. Hypertension Crisis: BP higher than 180/120 Peak Exercise Blood Pressure:: 144/70 Outcomes/Goals: Able to verbalize/achieve optimal blood pressure <130/80, Incorporates diet changes & exercise for blood pressure control by DC Interventions/plan: Instruct on optimal blood pressure, hypertension & medications, Instruct on effects of sodium, alcohol, stress, exercise &hypertension 30 day Reassessments:: Met - Tobacco Cessation Referral Smoking Cessation Referral:: No Individual Education/Counseling:: No Education Schedule Given:: Yes - Patient participates in education Medical - Final Assessment Psychosocial - Initial Assess Psychosocial - 30-Day Assess Psychosocial - 60-Day Assess Psychosocial - 90-Day Assess - VIsit Date of Eval: 07/27/21 Session #:: 33 Not Applicable: Yes History of previous Mental disease:: No - Psychosocial Test Tool Used:: PHQ-9 Questionnaire phq-9 Severity: Severity. 1-4 Minimal Depression. 5-9 Mild Depression. 10-14 Moderate Depression. 15-19 Moderately Sever Depression. 20-27 Severe Depression. Rule: - Referral to Behavioral Health PS - Interventions: Yes Attend Stress Management Classes, No Referral to Behavioral Health if PHQ-9 score >9:, No Referral to [facility], No Referral to Physician if PHQ-9 if score is 5-9: - Outcomes/Goals: See list Psychosocial Outcomes/Goals:: ID's personal stressors & 2 strategies to manage stress by discharge - Intervention/Plan: See List Interventions/Plan:: Assess stressors,coping strategies & signs of derpression on admission, Instruct/assist pt to develop coping & personal stress Mgt strategies, Instruct patient to recognize signs & symptoms of depression, Instruct patient to recog - 30-day Reassessments: 30 day Reassessments:: Met Psychosocial - Final Assessmen Patient Health Questionnaire 90-Day Re-eval Assessment 1. Little interest or pleasure in doing things: Not at all 2. Feeling down, depressed, or hopeless: Not at all 3. Trouble falling or staying asleep, or sleeping too much: Several days 4. Feeling tired or having little energy: Not at all 5. Poor appetite or overeating: Not at all 6. Feeling bad about yourself -- or that you are a failure or have let yourself or your family down: Not at all 7. Trouble concentrating on things, such as reading the newspaper or watching television: Not at all 8. Moving or speaking so slowly that other people could have noticed. Or the opposite - being so fidgety or restless that you have been moving around a lot more than usual: Several days 9. Thoughts that you would be better off , or of hurting yourself in some way: Not at all How difficult have these problems made it for you to do your work, take care of things at home, or get along with other people?: Not difficult at all Total Score: 2 Self-Efficacy 90-Day Re-eval Assessment We would like to know how confident you are in doing certain activities. Please select your confidence level for:: Select your confidence level for the following using the scale 1-10 where 1 is not at all confident and 10 is totally confident. Your score is the average of all 6 responses. Fatigue: How confident are you that you can keep the fatigue caused by your disease from interfering with the things you want to do? Select Number: 8 Physical Discomfort or Pain: How confident are you that you can keep the physical discomfort or pain of your disease from interfering with the things you want to do? Select Number: 8 Emotional Distress: How confident are you that you can keep the emotional distress caused by your disease from interfering with the things you want to do? Select Number: 10 Other Symptoms or Health Problems: How confident are you that you can keep other symptoms or health problems from interfering with the things you want to do? Select Number: 9 Different Tasks and Activities: How confident are you that you can do the different tasks and activities needed to manage your health condition so as to reduce your need to see a doctor? Select Number: 10 Medication: How confident are you that you can do things other than just taking medication to reduce how much your illness affects your everyday life? Select Number: 10 Total Score:: 9 Nutrition Survey
[2021-07-27 06:46] VITALS: BP 108/72; BP 144/70; BMI 32.3
== END 2021-08-04 23:59 ==
LOC: CR 10:30
PROVIDERS: PCP Internal Medicine; Referring Provider Internal Medicine Cardiovascular Disease; Visit Provider Internal Medicine Cardiovascular Disease
DX: Z95.1 Presence of aortocoronary bypass graft (principal); Z95.3 Presence of xenogenic heart valve
CPT/HCPCS: 93798

== ENCOUNTER 2021-08-07 10:30 | Outpatient (RCR) | payer MEDICARE, SELFPAY ==
[2021-07-27 06:46] VITALS: BMI 32.3
[2021-08-05 00:54] VITALS: BP 108/72; BP 144/70
== END 2021-09-03 23:59 ==
LOC: CR 10:30
PROVIDERS: PCP Internal Medicine; Referring Provider Internal Medicine Cardiovascular Disease; Visit Provider Internal Medicine Cardiovascular Disease
DX: Z95.1 Presence of aortocoronary bypass graft (principal); Z95.3 Presence of xenogenic heart valve
CPT/HCPCS: 93798

== ENCOUNTER → 2022-03-10 | Outpatient (CLI) | payer MEDICARE, SELFPAY ==
[2021-07-27 06:46] VITALS: BMI 32.3
[2022-03-10 09:19] LABS: Bacteria 0 SEEN /hpf (None Seen); Mucous, Urine 0 SEEN /hpf (<or=2+); Red Blood Cells-Urine 0 SEEN /hpf (0-5); Squamous Epithelial Cells - UA 0 SEEN /hpf (0-5); White Blood Cells 0 SEEN /hpf (0-5)
[2022-03-10 12:52] LABS: Color, Urine Yellow (Yellow); Glucose, Dipstick 1000 mg/dl (Normal); Ketone-Dipstick Negative (Negative); Leukocyte Esterase-Dipstick 25 /ul (Negative); Nitrite-Dipstick Negative (Negative); Occult Blood-Urine Negative /ul (Negative); Protein-Dipstick 15 mg/dl (Negative); Specific Gravity, Urine 1.015 (1.002-1.030); Urine Bilirubin Dipstick Negative (Negative); Urine Clarity Clear (Clear); Urine Urobilinogen Normal (Normal)
[2022-03-10 12:54] LABS: Absolute Lymphocyte Count 1.25 X10^3/uL (0.83-4.51); Absolute Neutrophil Count 3.7 X10^3/uL (2.0-7.7); Basophil# 0.04 X10^3/uL; Basophil% 0.7 % (0-1); Eosinophil# 0.25 X10^3/uL; Eosinophils% 4.4 % (0-5); Hematocrit 40.6 % (40-54); Hemoglobin 13.4 g/dL (13.0-16.5); Lymphocyte # 1.25 X10^3/ul (0.83-4.51); Mean Platelet Vol. 10.6 fl (6.2-12.0); Monocyte# 0.41 X10^3/uL; Monocyte% 7.2 % (0-10); NRBC Flagged by Analyzer 0 % (0-5); Neutrophil # 3.67 X10^3/uL (2.7-7.7); Neutrophil % 64.8 % (47-70); Platelet Count 171 K/mm3 (150-450); RBC Distribution Width CV 13.9 % (11.6-14.6); RBC Distribution Width SD 47.7 fl (35.1-43.9); Red Blood Count 4.32 M/mm3 (4.6-6.2); White Blood Count 5.7 K/mm3 (4.4-11.0)
[2022-03-10 13:10] LABS: Vitamin D,25 Hydroxy 78.2 ng/mL
[2022-03-10 13:22] LABS: Microalbumin,Random Urine 37.8 mg/L (NO RANGE EST.); Microalbumin:Creatinine Ratio 45.9 mg/g CRE (<30 mg/g CRE)
[2022-03-10 13:23] LABS: ALB/GLOB Ratio 1.4 RATIO (0.9-2.4); AST(SGOT) 17 U/L (15-37); Alanine Aminotransfer ALT/SGPT 21 U/L (16-61); Albumin, Serum 3.8 g/dL (3.2-5.0); Alkaline Phosphatase 70 U/L (45-117); Anion Gap 7 (5-15); BUN 35 mg/dL (7-18); Calcium,Total 8.7 mg/dL (8.5-10.1); Chloride 105 mmol/L (98-107); Cholesterol 206 mg/dL (200); Creatinine, Serum 1.59 mg/dL (0.70-1.30); EST Glomerular Filtration Rate 45 mL/min (>60); Est Glom Filt Rate - Afr Amer 54 mL/min (>60); Globulin 2.7 g/dL (2.2-4.2); Glucose 174 mg/dL (74-106); High Density Lipoprotein 45 mg/dL; Potassium 3.8 mmol/L (3.5-5.1); Protein, Total 6.5 g/dL (6.4-8.2); Sodium Level 140 mmol/L (136-145); Thyroid Stim Hormone (TSH) 0.82 uIU/mL (0.358-3.74); Triglycerides 378 mg/dL; Very Low Density Lipoprotein 76 mg/dL (5-40)
[2022-03-10 13:28] LABS: Hemoglobin A1c 8.1 % (3.8-5.6)
== END | disposition home or self-care (01) ==
LOC: MTLAB 09:12
PROVIDERS: PCP Internal Medicine; Referring Provider Internal Medicine; Visit Provider Internal Medicine
DX: E03.9 Hypothyroidism, unspecified (principal); E11.65 Type 2 diabetes mellitus with hyperglycemia; E55.9 Vitamin D deficiency, unspecified; I11.9 Hypertensive heart disease without heart failure; Z12.5 Encounter for screening for malignant neoplasm of prostate
CPT/HCPCS: 36415; 80053; 80061; 81001; 82043; 82306; 82570; 83036; 84443; 85025

== ENCOUNTER → 2022-03-15 | Outpatient (CLI) | payer MEDICARE, SELFPAY ==
[2021-07-27 06:46] VITALS: BMI 32.3
--- NOTE | 2022-03-15 12:16 | CT_ITS ---
STUDY: CT LUMBAR SPINE WITH INTRATHECAL CONTRAST (LUMBAR CT MYELOGRAM) REASON FOR EXAM: Male, 76 years old. DDD. Low back pain and bilateral lower extremity pain. RADIATION DOSAGE (If Supplied By Facility): CTDIvol = ( 31.97 ) mGy, DLP = ( 1072.85 ) mGycm TECHNIQUE: Transaxial images were obtained from the L1 vertebra through the S1 vertebrae, following intrathecal administration of 15 ml of ISOVUE-M 200 contrast material, performed by Dr. CEJA. Please refer to this physicians technical notes for procedural details. Coronal and sagittal reconstructions were obtained. The contrast is seen in the epidural space. Individualized dose optimization techniques were used for this CT. COMPARISON: None. FINDINGS: Normal lumbar lordosis. There is no substantial scoliosis. Multilevel spondylosis. L1-2: Mild degree of disc space narrowing. No significant disc herniation is seen. There is evidence of facet joint osteoarthritis and hypertrophy. Mild degree of lateral neural foraminal stenosis. L2-3: Anterior spondylosis. Hypertrophy of the facet joints as well as the ligamentum flavum causing mild degree of posterior spinal stenosis. L3-4: Facet joint osteoarthritis and hypertrophy. Mild to moderate degree of central canal stenosis. L4-5: Central canal stenosis. Facet joint osteoarthritis and hypertrophy. Diffuse posterior disc bulge. L5-S1: Spinal stenosis. Facet joint osteoarthritis and hypertrophy. There are degenerative changes of the bilateral sacroiliac joints. Atherosclerotic calcification of the abdominal aorta. CT/Spine Lumbar WITH Contrast IMPRESSION: Multiple findings as described above. Electronically Signed: Rick Ceja MD at 14:11 EST ,
[2022-03-15 12:59] VITALS: BP 140/63; PULSE 65; RESP 16; O2SAT 100
[2022-03-15 13:00] VITALS: BP 140/83; PULSE 64; RESP 16; TEMP 36.6; O2SAT 99; BMI 31.6
--- NOTE | 2022-03-15 13:05 | RAD_ITS ---
PROCEDURE: LUMBAR MYELOGRAM DATE OF EXAMINATION: 03/15/2022. INDICATION: Male, 76 years old. Low back pain. PHYSICIAN: Rick De Leon M.D. CONSENT: The patient''s history and physical findings were reviewed. The lumbar myelogram procedure was discussed with the patient prior to signing a consent. SEDATION: Local anesthesia with 3 mL of 1% lidocaine was used. FLUOROSCOPY TIME (if supplied): (2:00) minutes/seconds. 4 images were obtained. Injection Information: 15 cc of ISOVUE-200 Number of images obtained: 4 TECHNIQUE: Digital fluoroscopy was used to identify a safe approach for the lumbar myelogram. The back was prepped and draped in usual fashion. Local anesthesia was utilized. Under fluoroscopic guidance a 22-gauge spinal needle was inserted into the spinal canal at the L3-L4 level. Clear spinal fluid was seen. . 15 mL of Isovue 200 M was injected into the spinal canal. There is evidence of disc space narrowing and extradural defect at the L4-L5 and L5-S1 levels. RAD/Lumbar Myelogram IMPRESSION: Disc space narrowing and extradural defect at the L4-L5 and L5-S1 levels. MRI will follow. Electronically Signed: Rick De Leon MD at 14:02 EST ,
[2022-03-15] MEDS: Lidocaine 2% (5ml sdv) 5 ML VIAL.MPF INFILT (13:25)
[2022-03-15 13:52] VITALS: BP 152/75; PULSE 64; RESP 16; O2SAT 99
[2022-03-15 14:00] VITALS: PULSE 64; RESP 16; O2SAT 99
== END | disposition home or self-care (01) ==
LOC: RAD 12:14
PROVIDERS: PCP Internal Medicine; Visit Provider Physician Assistant
DX: M51.36 Other intervertebral disc degeneration, lumbar region (principal); M54.16 Radiculopathy, lumbar region
CPT/HCPCS: 62304; 72132; Q9965

== ENCOUNTER → 2022-07-12 | Outpatient (CLI) | payer MEDICARE, SELFPAY ==
[2021-07-27 06:46] VITALS: BMI 32.3
--- NOTE | 2022-07-12 | IMM_PTH ---
PATIENT: NICK NAVARRO LOC: [facility] U#:[id number] AGE/SX: 77/M ROOM: RE07/12/[address]: Dr. Ramy Padilla MD : 1945 BED: DIS: 07/12/2022 SPEC #: [id number] RECD: 07/13/22 14:51 STATUS: [place] REQ #: [id number] ESTELA: 07/12/22 00:[address]: Ramy Padilla DEPT: IMMUNOHISTOCHEMISTRY RECD BY: Rosalie Mcclellan ENTERED: 07/13/22 14:53 SP TYPE: IMMUNO OTHR DR: Dr. Anette Helton DO Tissues: B - PROSTATE RIGHT C - PROSTATE RIGHT D - PROSTATE LEFT E - PROSTATE LEFT Procedures: 34BE12 (add) P40 (add) 34BE12 (initial) PHYSICIAN & INSTITUTION [place] [phone] SPECIMEN INFORMATION: Tissue Source: B - Right mid, C - Right base, D - Left apex, E - Left mid Clinical Info: Elevated PSA Specimen Number: [id number] B-E CPT code: 01129, 88817 x7 METHODOLOGY: Deparaffinized sections of prefer/formalin-fixed tissue or PAP/DQ stained slides are incubated with monoclonal/polyclonal antibodies/oligonucleotide probes. Localization is made via biotin free immunoperoxidase method. Appropriate controls are performed and reacted as expected. Results on target cell population are indicated in the following table: RESULTS: ANTIBODY / CLONE RESULT Block B P40 (BC28) negative 34BE12 (34BE12) negative Block C P40 (BC28) positive 34BE12 (34BE12) positive Block D P40 (BC28) negative 34BE12 (34BE12) negative Block E P40 (BC28) negative 34BE12 (34BE12) negative These tests were developed and their performance characteristics determined by [facility]. They may not have been cleared or approved by the U.S. Food and Drug Administration. The FDA has determined that such clearance or approval is not necessary. The above immunohistochemical/dualISH markers are ordered and reviewed by the Pathologist. INTERPRETATION: B. Right prostate, mid, core biopsy: Adenocarcinoma. C. Right prostate, base, core biopsy: Benign prostatic tissue. D. Left prostate, apex, core biopsy: Adenocarcinoma. E. Left prostate, mid, core biopsy: Adenocarcinoma. AM:[email or web address] 07/14/2022
--- NOTE | 2022-07-12 08:15 | PROSBIL_PTH ---
PATIENT: NICK NAVARRO LOC: [facility] U#:[id number] AGE/SX: 77/M ROOM: RE07/12/[address]: Dr. Ramy Padilla MD : 1945 BED: DIS: 07/12/2022 SPEC #: [id number] RECD: 07/12/22 11:50 STATUS: [place] REQ #: [id number] ESTELA: 07/12/22 08:[address]: Ramy Padilla DEPT: SURGICAL PATHOLOGY RECD BY: Melvi Goldsmith ENTERED: 07/12/22 13:35 SP TYPE: PROST BX FRANK DR: Dr. Anette Helton DO Tissues: A - PROSTATE RIGHT B - PROSTATE RIGHT C - PROSTATE RIGHT D - PROSTATE LEFT E - PROSTATE LEFT F - PROSTATE LEFT Procedures: PROSTATE BX HEADER OPERATION: Prostate biopsy PRE-OP DIAGNOSIS: Elevated PSA TISSUE SUBMITTED: A - Right apex, B - Right mid, C - Right base, D - Left apex, E - Left mid, F - Left base MICROSCOPIC DIAGNOSIS A. Right prostate, apex, core biopsy: Focal glandular atrophy. B. Right prostate, mid, core biopsy: Adenocarcinoma. [place] grade: 6 (3+3) Cores involved: 1 out of 1 core Tissue involved: 20% Greatest tumor length: 2.6millimeters See comment. C. Right prostate, base, core biopsy: Glandular atrophy and minimal chronic inflammation. See comment. D. Left prostate, apex, core biopsy: Adenocarcinoma. [place] grade: 7 (3+4) Cores involved: 1 out of 1 core Tissue involved: 40% Greatest tumor length: 5.0 millimeters See comment. E. Left prostate, mid, core biopsy: Adenocarcinoma. [place] grade: Cores involved: 1 out of 1 core Tissue involved: 50% Greatest tumor length: 5.0millimeters Perineural invasion: Present See comment. F. Left prostate, base, core biopsy: Benign prostatic tissue. AM:sanjeev 07/13/2022 COMMENT B-E. Immunohistochemistry ([id number]) supports the above diagnosis. Case has been reviewed in consultation with Dr. Lentz who concurs with the above diagnosis. IDC:SJ MICROSCOPIC DESCRIPTION Slides are reviewed. GROSS DESCRIPTION A - Received is one container designated prostate, right apex. The specimen consists of one elongated fragment of light rod-white soft tissue measuring 1.2 cm in length and 0.1 cm in diameter. The specimen is totally submitted in one cassette. B - Received is one container designated prostate, right mid. The specimen consists of one elongated fragment of light rod-white soft tissue measuring 1.5 cm in length and 0.1 cm in diameter. The specimen is totally submitted in one cassette. C - Received is one container designated prostate, right base. The specimen consists of one elongated fragment of light rod-white soft tissue measuring 1.5 cm in length and 0.1 cm in diameter. The specimen is totally submitted in one cassette. D - Received is one container designated prostate, left apex. The specimen consists of one elongated fragment of light rod-white soft tissue measuring 1.8 cm in length and 0.1 cm in diameter. The specimen is totally submitted in one cassette. E - Received is one container designated prostate, left mid. The specimen consists of one elongated fragment of light rod-white soft tissue measuring 1.3 cm in length and 0.1 cm in diameter. The specimen is totally submitted in one cassette. F - Received is one container designated prostate, left base. The specimen consists of one elongated fragment of light rod-white soft tissue measuring 1.4 cm in length and 0.1 cm in diameter. The specimen is totally submitted in one cassette. / SJ:rg 07/12/2022 TC:0 [facility]: [id number]
--- NOTE | 2022-07-12 08:15 | PROSBIL_PTH ---
PATIENT: NICK NAVARRO LOC: [facility] U#:[id number] AGE/SX: 77/M ROOM: RE07/12/[address]: Dr. Ramy Padilla MD : 1945 BED: DIS: 07/12/2022 SPEC #: [id number] RECD: 07/12/22 11:50 STATUS: [place] REQ #: [id number] ESTELA: 07/12/22 08:[address]: Ramy Padilla DEPT: SURGICAL PATHOLOGY RECD BY: Melvi Goldsmith ENTERED: 07/12/22 13:35 SP TYPE: PROST BX FRANK DR: Dr. Anette Helton DO Tissues: A - PROSTATE RIGHT B - PROSTATE RIGHT C - PROSTATE RIGHT D - PROSTATE LEFT E - PROSTATE LEFT F - PROSTATE LEFT Procedures: PROSTATE BX HEADER OPERATION: Prostate biopsy PRE-OP DIAGNOSIS: Elevated PSA TISSUE SUBMITTED: A - Right apex, B - Right mid, C - Right base, D - Left apex, E - Left mid, F - Left base MICROSCOPIC DIAGNOSIS A. Right prostate, apex, core biopsy: Focal glandular atrophy. B. Right prostate, mid, core biopsy: Adenocarcinoma. [place] grade: 6 (3+3) Cores involved: 1 out of 1 core Tissue involved: 20% Greatest tumor length: 2.6millimeters See comment. C. Right prostate, base, core biopsy: Glandular atrophy and minimal chronic inflammation. See comment. D. Left prostate, apex, core biopsy: Adenocarcinoma. [place] grade: 7 (3+4) Cores involved: 1 out of 1 core Tissue involved: 40% Greatest tumor length: 5.0 millimeters See comment. E. Left prostate, mid, core biopsy: Adenocarcinoma. [place] grade: 7 (3+4) Cores involved: 1 out of 1 core Tissue involved: 50% Greatest tumor length: 5.0millimeters Perineural invasion: Present See comment. F. Left prostate, base, core biopsy: Benign prostatic tissue. AM:sanjeev 07/13/2022 COMMENT B-E. Immunohistochemistry ([id number]) supports the above diagnosis. Case has been reviewed in consultation with Dr. Lentz who concurs with the above diagnosis. IDC:SJ MICROSCOPIC DESCRIPTION Slides are reviewed. GROSS DESCRIPTION A - Received is one container designated prostate, right apex. The specimen consists of one elongated fragment of light rod-white soft tissue measuring 1.2 cm in length and 0.1 cm in diameter. The specimen is totally submitted in one cassette. B - Received is one container designated prostate, right mid. The specimen consists of one elongated fragment of light rod-white soft tissue measuring 1.5 cm in length and 0.1 cm in diameter. The specimen is totally submitted in one cassette. C - Received is one container designated prostate, right base. The specimen consists of one elongated fragment of light rod-white soft tissue measuring 1.5 cm in length and 0.1 cm in diameter. The specimen is totally submitted in one cassette. D - Received is one container designated prostate, left apex. The specimen consists of one elongated fragment of light rod-white soft tissue measuring 1.8 cm in length and 0.1 cm in diameter. The specimen is totally submitted in one cassette. E - Received is one container designated prostate, left mid. The specimen consists of one elongated fragment of light rod-white soft tissue measuring 1.3 cm in length and 0.1 cm in diameter. The specimen is totally submitted in one cassette. F - Received is one container designated prostate, left base. The specimen consists of one elongated fragment of light rod-white soft tissue measuring 1.4 cm in length and 0.1 cm in diameter. The specimen is totally submitted in one cassette. / SJ:rg 07/12/2022 TC:0 CPT: G0146
== END | disposition home or self-care (01) ==
LOC: LABSPEC 12:56
PROVIDERS: PCP Internal Medicine; Referring Provider Urology; Visit Provider Urology
DX: R97.20 Elevated prostate specific antigen [PSA] (principal)
CPT/HCPCS: 88305; 88341; 88342; G0416

== ENCOUNTER → 2022-09-27 | Outpatient (CLI) | payer MEDICARE, SELFPAY ==
[2021-07-27 06:46] VITALS: BMI 32.3
--- NOTE | 2022-09-27 07:52 | CT_ITS ---
STUDY: CT ABDOMEN AND PELVIS WITH CONTRAST - URINARY TRACT REASON FOR EXAM: Male, 77 years old. LLQ Pain -- R/O Diverticulitis RADIATION DOSAGE (If Supplied By Facility): CTDIvol = ( 17.21 ) mGy, DLP = ( 1548.12 ) mGycm TECHNIQUE: IV 100mL Isovue-300 was administered. Transaxial images were obtained from the dome of the diaphragm to the symphysis pubis in the arterial, nephrographic and excretory phases. Multiplanar coronal and sagittal images were reformatted. Individualized Dose Optimization Techniques Were Used For This CT. Total DLP 1548.12 mgy-cm COMPARISON: FINDINGS: There is a 3 mm nodule in the right lower lobe appearing stable. The visualized portions of the heart are within normal limits. Normal liver. There are numerous gallstones identified. There is no evidence for intrahepatic or extra hepatic biliary duct dilatation. Normal spleen. Normal pancreas. Normal bilateral adrenal glands. Normal visualized stomach. Normal small intestine. There is mild sigmoid diverticulosis without evidence for acute diverticulitis. Appendix not visualized. Normal abdominal aorta. No retroperitoneal adenopathy. There is an indeterminate 1 cm lesion in the midpole of the right kidney of intermediate density appearing exophytic, axial image 38 appear similar in size to the prior study. A 1 cm cyst is noted in the midpole of the right kidney anteriorly. Additional subcentimeter cysts are noted in the right kidney. Normal left kidney. Normal urinary bladder. Prostate seed implants are identified. Surgical clips are noted scattered in the lower anterior abdominal wall. There is a right hip placement identified. Prominent degenerative changes noted in the left hip. CT/Abdomen/Pelvis WITH Contrast IMPRESSION: Stable indeterminate exophytic lesion in the right kidney. Small renal cysts. Stable right-sided lung nodule. Gallstones. Diverticulosis without evidence for acute diverticulitis. Otherwise no evidence for acute intra-abdominal or pelvic pathology. Electronically Signed: David Simms, at 8:42 EDT ,
[2022-09-27 08:23] LABS: EGFR FINGERSTICK > 60.0000 mL/min (>60)
== END | disposition home or self-care (01) ==
PROVIDERS: PCP Internal Medicine; Referring Provider Internal Medicine; Visit Provider Internal Medicine
DX: R10.32 Left lower quadrant pain (principal)
CPT/HCPCS: 74177; Q9967

== ENCOUNTER → 2023-01-13 | Outpatient (CLI) | payer MEDICARE, SELFPAY ==
[2021-07-27 06:46] VITALS: BMI 32.3
[2023-01-13 10:38] LABS: PSA,Total- Diagnostic 8.51 ng/mL (0.0-4.0)
== END | disposition home or self-care (01) ==
LOC: MTLAB 08:44
PROVIDERS: PCP Internal Medicine; Referring Provider Urology; Visit Provider Urology
DX: C61 Malignant neoplasm of prostate (principal)
CPT/HCPCS: 36415; 84153

== ENCOUNTER → 2023-03-23 | Outpatient (CLI) | payer MEDICARE, SELFPAY ==
[2021-07-27 06:46] VITALS: BMI 32.3
[2023-03-23 10:21] LABS: Color, Urine Yellow (Yellow); Glucose, Dipstick 1000 mg/dl (Normal); Ketone-Dipstick Negative (Negative); Leukocyte Esterase-Dipstick 25 /ul (Negative); Nitrite-Dipstick Negative (Negative); Occult Blood-Urine Negative /ul (Negative); Protein-Dipstick 15 mg/dl (Negative); Specific Gravity, Urine 1.015 (1.002-1.030); Urine Bilirubin Dipstick Negative (Negative); Urine Clarity Clear (Clear); Urine Urobilinogen Normal (Normal)
[2023-03-23 10:25] LABS: Absolute Lymphocyte Count 1.07 X10^3/uL (0.83-4.51); Absolute Neutrophil Count 3.9 X10^3/uL (2.0-7.7); Basophil# 0.04 X10^3/uL; Basophil% 0.7 % (0-1); Eosinophils% 3.4 % (0-5); Hematocrit 40.5 % (40-54); Hemoglobin 13.3 g/dL (13.0-16.5); Lymphocyte # 1.07 X10^3/ul (0.83-4.51); Lymphocyte % 18.4 % (19-41); Mean Corp Hgb Conc 32.8 g/dL (32-36); Mean Corpuscular Hgb 30.2 pg (27.0-32.0); Mean Platelet Vol. 10.2 fl (6.2-12.0); Monocyte# 0.49 X10^3/uL; Monocyte% 8.4 % (0-10); NRBC Flagged by Analyzer 0 % (0-5); Neutrophil # 3.93 X10^3/uL (2.7-7.7); Neutrophil % 67.9 % (47-70); Platelet Count 152 K/mm3 (150-450); RBC Distribution Width CV 14.2 % (11.6-14.6); RBC Distribution Width SD 47.6 fl (35.1-43.9); White Blood Count 5.8 K/mm3 (4.4-11.0)
[2023-03-23 11:05] LABS: Microalbumin,Random Urine 52.9 mg/L (NO RANGE EST.); Microalbumin:Creatinine Ratio 63.3 mg/g CRE (<30 mg/g CRE)
[2023-03-23 11:06] LABS: Vitamin D,25 Hydroxy 107.7 ng/mL
[2023-03-23 11:34] LABS: ALB/GLOB Ratio 1.3 RATIO (0.9-2.4); AST(SGOT) 15 U/L (15-37); Alanine Aminotransfer ALT/SGPT 17 U/L (16-61); Albumin, Serum 3.7 g/dL (3.2-5.0); Alkaline Phosphatase 58 U/L (45-117); Anion Gap 7 (5-15); BUN 29 mg/dL (7-18); BUN/Creat Ratio 18.4 RATIO (10-20); Calcium,Total 8.5 mg/dL (8.5-10.1); Chloride 107 mmol/L (98-107); Cholesterol 155 mg/dL (200); Creatinine, Serum 1.58 mg/dL (0.70-1.30); EST Glomerular Filtration Rate 45 mL/min (>60); Est Glom Filt Rate - Afr Amer 55 mL/min (>60); Globulin 2.9 g/dL (2.2-4.2); Glucose 135 mg/dL (74-106); High Density Lipoprotein 42 mg/dL; Potassium 3.6 mmol/L (3.5-5.1); Protein, Total 6.6 g/dL (6.4-8.2); Sodium Level 141 mmol/L (136-145); Thyroid Stim Hormone (TSH) 1.01 uIU/mL (0.358-3.74); Triglycerides 216 mg/dL; Very Low Density Lipoprotein 43 mg/dL (5-40)
[2023-03-31 14:09] LABS: PSA, Free 1.86 ng/mL; PSA, Free % 21.4 % (.); PSA, Total 8.7 ng/mL (0.0-4.0)
== END | disposition home or self-care (01) ==
PROVIDERS: PCP Internal Medicine; Referring Provider Internal Medicine; Visit Provider Internal Medicine
DX: E11.65 Type 2 diabetes mellitus with hyperglycemia (principal); E78.00 Pure hypercholesterolemia, unspecified; E03.9 Hypothyroidism, unspecified; E55.9 Vitamin D deficiency, unspecified; Z12.5 Encounter for screening for malignant neoplasm of prostate
CPT/HCPCS: 36415; 80053; 80061; 81002; 82043; 82306; 82570; 84153; 84443; 85025

== ENCOUNTER → 2023-06-27 | Outpatient (CLI) | payer MEDICARE, SELFPAY ==
[2021-07-27 06:46] VITALS: BMI 32.3
--- NOTE | 2023-06-27 12:45 | ECHOD_ITS ---
Reason For Study: VALVE REPLACEMENT EVAL Procedure This was a 2D Doppler, Color Flow transthoracic echocardiogram. Exam performed in department. Left Ventricle Normal LV size. The estimated ejection fraction is 60 %. No evidence for diastolic dysfunction. No regional wall motion abnormalities noted. Right Ventricle Normal RV size. Normal systolic function. Atria Normal left atrium. Normal right atrium. No doppler evidence for ASD. Mitral Valve There is no mitral valve stenosis. Trivial mitral valve insufficiency. Tricuspid Valve There is no tricuspid stenosis. Trivial tricuspid valve insufficiency. Unable to estimate RV systolic pressure due to insufficient tricuspid regurgitant envelope. Aortic Valve There is no aortic stenosis. No aortic valve insufficiency. Stable appearing bioprosthetic aortic valve apparatus. Pulmonic Valve There is no pulmonic valvular stenosis. No pulmonic valve insufficiency. Great Vessels Normal aortic root. Pericardium/Pleural No pericardial effusion. MMode/2D Measurements & Calculations LVIDd: 5.1 cm IVSd: 1.4 cm LVOT diam: 2.0 cm LVIDs: 3.3 cm LVPWd: 1.1 cm LVOT area: 3.0 cm2 RVDd: 3.4 cm FS: 34.1 % Ao root diam: 4.3 cm LAV(MOD-bp): 62.9 ml LVAd ap4: 27.0 cm2 LAV(MOD-bp) Indexed: 26.8 ml/m2 LVLd ap4: 7.8 cm LAV(MOD-sp2): 73.4 ml EDV(MOD-sp4): 73.9 ml LAV(MOD-sp4): 54.2 ml EDV(sp4-el): 79.1 ml LVAs ap4: 16.5 cm2 LVLs ap4: 6.5 cm ESV(MOD-sp4): 34.6 ml ESV(sp4-el): 35.3 ml EF(MOD-sp4): 53.2 % EF(sp4-el): 55.4 % LVAd ap2: 25.7 cm2 SV(MOD-sp4): 39.3 ml SV(MOD-sp2): 38.5 ml LVLd ap2: 7.6 cm EDV(MOD-sp2): 70.0 ml EDV(sp2-el): 73.6 ml LVAs ap2: 15.7 cm2 LVLs ap2: 6.5 cm ESV(MOD-sp2): 31.5 ml ESV(sp2-el): 32.5 ml EF(MOD-sp2): 54.9 % SV(sp4-el): 43.8 ml LA dimension(2D): 3.7 cm LA A4 area: 20.5 cm2 RA A4 area: 14.2 cm2 TAPSE: 1.1 cm Time Measurements MV dec time: 0.38 sec Doppler Measurements & Calculations MV E max vasiliy: 62.2 cm/sec Lat Peak E' Vasiliy: 9.5 cm/sec Med Peak E' Vasiliy: 5.7 cm/sec MV A max vasiliy: 91.1 cm/sec E/E' lat: 6.5 E/E' med: 10.9 MV E/A: 0.68 Ao V2 max: 218.6 cm/sec LV V1 max: 97.6 cm/sec MV dec slope: 163.2 cm/sec2 Ao max P.2 mmHg LV V1 max P.8 mmHg Ao V2 mean: 157.9 cm/sec LV V1 mean P.4 mmHg Ao mean P.9 mmHg LV V1 mean: 73.5 cm/sec Ao V2 VTI: 40.6 cm LV V1 VTI: 19.7 cm AV (velocity ratio): 0.49 CHEMA(I,D): 1.5 cm2 CHEMA(V,D): 1.3 cm2 SV(LVOT): 59.2 ml PA V2 max: 96.3 cm/sec PA max PG (full): 2.0 mmHg ECHO/Echo Complete Interpretation Summary The estimated ejection fraction is 60 %. No evidence for diastolic dysfunction. Trivial mitral valve insufficiency. Stable appearing bioprosthetic aortic valve apparatus. Ordering Physician: Joe Holland Referring Physician: Anette Helton M.D. Performed By: Selina Nugent RDCS
== END | disposition home or self-care (01) ==
PROVIDERS: PCP Internal Medicine; Referring Provider Internal Medicine Cardiovascular Disease; Visit Provider Internal Medicine Cardiovascular Disease
DX: Z95.3 Presence of xenogenic heart valve (principal)
CPT/HCPCS: 93306

== ENCOUNTER → 2023-07-19 | Outpatient (CLI) | payer MEDICARE, SELFPAY ==
[2021-07-27 06:46] VITALS: BMI 32.3
[2023-07-19 16:07] LABS: PSA,Total- Diagnostic 9.92 ng/mL (0.0-4.0)
== END | disposition home or self-care (01) ==
LOC: MTLAB 12:45
PROVIDERS: PCP Internal Medicine; Referring Provider Urology; Visit Provider Urology
DX: R97.20 Elevated prostate specific antigen [PSA] (principal)
CPT/HCPCS: 36415; 84153

== ENCOUNTER 2023-10-07 06:02 | Day surgery (SDC) | payer MEDICARE, SELFPAY ==
[2021-07-27 06:46] VITALS: BMI 32.3
[2023-10-07] VITALS (8 sets, daily range): BP systolic 93–121; BP diastolic 61–104; PULSE 73–84; RESP 16–18; TEMP 36.1–36.6; O2SAT 94–96; BMI 30.8
[2023-10-07] MEDS: Lactated Ringers 1,000 ML 15 ML IV (06:30)
--- NOTE | 2023-10-07 07:07 | PCM.HP.STD ---
HPI - General General Date of Service: 10/07/23 Chief Complaint: Prostate cancer HPI Narrative NICK NAVARRO, is a 78 M who presents for placement of gold markers and spacer gel for treatment for intermediate risk prostate cancer with radiation therapy [facility] Medical History Wears dentures Wears glasses History of steroid therapy High cholesterol Back pain History of diverticulitis History of pain when walking History of skin cancer Prostate cancer Cochlear implant in place Superficial thrombosis of right lower extremity Cellulitis Lymphocytic colitis Alcohol use Diabetes Thyroid disease Gout Arthritis Prostate disease Anemia Stroke/cerebrovascular accident Gastric reflux Former smoker Cardiology follow-up encounter History of echocardiogram Bloating Nonrheumatic aortic (valve) insufficiency Left ventricular hypertrophy Lung nodule Meniere disease Presence of stent in coronary artery (~08/16/05) Non-rheumatic aortic stenosis Thoracic aortic aneurysm without rupture Pure hypercholesterolemia Essential hypertension Fatigue Atherosclerotic heart disease of [place] coronary artery without angina pectoris SVT (supraventricular tachycardia) Home Medications ?Medication ?Instructions ?Recorded ?Last Taken ?Type allopurinol 300 mg tablet 300 mg PO DAILY gout 12/05/12 10/06/23 History aspirin 81 mg chewable tablet 81 mg PO DAILY@0800 12/05/12 10/02/23 History multivitamin with folic acid 400 1 tab PO DAILY 12/05/12 10/06/23 History mcg tablet alfuzosin 10 mg tablet,extended 10 mg PO DAILY BPH 09/16/16 10/06/23 History release 24 hr finasteride 5 mg tablet 5 mg PO QDAY 09/05/17 10/06/23 History cholecalciferol (vitamin D3) 10 10 mcg PO DAILY 12/02/20 10/06/23 History mcg (400 unit) tablet insulin glargine U-300 conc 300 24 unit subcut QHS 12/02/20 10/06/23 History unit/mL (3 mL) subcutaneous pen (Toujeo Max U-300 SoloStar) acetaminophen 500 mg tablet 500 mg PO Q6H PRN Pain 03/30/21 10/06/23 History clopidogrel 75 mg tablet 75 mg PO DAILY 03/30/21 10/02/23 History levothyroxine 150 mcg tablet 150 mcg PO .COMPLEX 03/30/21 10/06/23 History metoprolol succinate 50 mg 50 mg PO BID 03/30/21 10/06/23 History tablet,extended release 24 hr dapagliflozin propanediol 5 mg 5 mg PO DAILY 05/01/21 10/06/23 History tablet (Farxiga) metformin 750 mg tablet,extended 750 mg PO BID 05/01/21 10/06/23 History release 24 hr triamterene 37.5 1.5 tab PO DAILY 05/01/21 10/06/23 History mg-hydrochlorothiazide 25 mg tablet omega-3 fatty acids 1,000 mg 1,000 mg PO DAILY 12/07/21 10/06/23 History capsule rosuvastatin 40 mg tablet 40 mg PO DAILY #90 tabs 01/21/23 10/06/23 Rx semaglutide 2 mg/dose (8 mg/3 mL) 2 mg subcut QWEEK 09/06/23 10/02/23 History subcutaneous pen injector (Ozempic) Lactobacillus acidophilus 10 100 mmu cells PO DAILY 09/23/23 10/06/23 History billion cell capsule (NewFlora) ciprofloxacin HCl 500 mg tablet 500 mg PO BID #10 tabs 10/07/23 Unknown Rx (Cipro) Allergy/AdvReac Type Severity Reaction Status Date / Time atorvastatin (From Lipitor) AdvReac Severe Myalgias Verified 10/07/23 06:34 simvastatin (From Zocor) AdvReac Severe Myalgias Verified 10/07/23 06:34 Family History Father CAD (coronary artery disease) Myocardial infarction Mother CAD (coronary artery disease) Brother Colon cancer Surgical History History of coronary artery bypass surgery (~03/10/21) History of aortic valve replacement with bioprosthetic valve (~03/10/21) History of left heart catheterization (LHC) (~02/03/21) History of right hip replacement History of colonoscopy Presence of coronary angioplasty implant and graft (~08/16/05) History of cochlear implant Hx of cataract surgery H/O hernia repair Social History Smoking Status: Former smoker alcohol intake: current alcohol intake frequency: a few times a week substance use type: does not use caffeine: Yes Type: coffee Number of servings: 1 Vital Signs Vital Signs Vital Signs: 10/07/23 06:42 10/07/23 06:42 Temperature 97 F L Temperature Source Temporal Pulse Rate 84 Respiratory Rate 17 Respiratory Pattern Normal Blood Pressure 108/72 Blood Pressure Mean 84 Blood Pressure Source Monitor Blood Pressure Position Semi-Fowlers Blood Pressure Location Right Arm Pulse Ox 96 Oxygen Delivery Method Room Air Weight Weight: 105.9 kg Body Mass Index (BMI) 30.8
--- NOTE | 2023-10-07 07:08 | PCM.DC ---
Discharge Instructions Diet Discharge Diet: No restrictions Activity Discharge Activity: Return to Normal Activity and May Not Drive (while taking narcotic pain medications.) Dressing / Incision Call your doctor if you observe: Fever of 101 or Higher Follow Up Care Please Follow Up With: Ramy Diaz MD When: Call [phone] for an appointment Test Results: Test results from this visit will be discussed in further detail at your follow-up appointment, if applicable. Discharge Plan Admission Primary Reason for Your Visit: spacers and markers Attending Provider: Ramy Diaz Primary Care Provider: Anette Helton Instructions Print Language: [place]errat[place] Discharge Orders/Prescriptions Prescriptions: New ciprofloxacin HCl [Cipro] 500 mg tablet 500 mg PO BID Qty: 10 0RF Continued finasteride 5 mg tablet 5 mg PO QDAY Toujeo Max U-300 SoloStar 300 unit/mL (3 mL) insulin pen 24 unit subcut QHS cholecalciferol (vitamin D3) 10 mcg (400 unit) tablet 10 mcg PO DAILY acetaminophen 500 mg tablet 500 mg PO Q6H PRN (Reason: Pain) omega-3 fatty acids 1,000 mg capsule 1,000 mg PO DAILY Ozempic 2 mg/dose (8 mg/3 mL) pen injector 2 mg subcut QWEEK Patient Comments: PT TAKES ON SUNDAYS, WILL TAKE AGAIN ON 10/01 allopurinol 300 MG tablet 300 mg PO DAILY aspirin 81 MG tablet,chewable 81 mg PO DAILY@0800 Patient Comments: STOP 5 DAYS PRIOR TO OR PER DR. DIAZ multivitamin with folic acid 1 TABLET tablet 1 tab PO DAILY metoprolol succinate 50 mg tablet extended release 24 hr 50 mg PO BID alfuzosin 10 MG tablet extended release 24 hr 10 mg PO DAILY levothyroxine 150 mcg tablet 150 mcg PO .COMPLEX Rx Instructions: 150 mcg PO daily except two tablets on Tuesday; triamterene-hydrochlorothiazid 37.5-25 mg Tablet 1.5 tab PO DAILY metformin 750 mg Tablet Extended Release 24 Hr 750 mg PO BID dapagliflozin propanediol [Farxiga] 5 mg Tablet 5 mg PO DAILY NewFlora 10 billion cell capsule 100 mmu cells PO DAILY clopidogrel 75 mg tablet 75 mg PO DAILY Patient Comments: STOP 5 DAYS PRIOR rosuvastatin 40 mg tablet 40 mg PO DAILY Qty: 90 3RF Referrals / Follow Up: Sunitha,Anette, DO [Primary Care Provider] - Disposition Disposition (needs filled in before D/C Order can be placed): Home, Self Care
--- NOTE | 2023-10-07 07:14 | PCM.PRE.AN2 ---
ASA Classification* ASA Classification ASA Classification: 3 Assessment & Plan Anesthesia* Anesthesia Assessment Anesthesia Assessment: Discussed sedation and/or anesthesia options, risks, benefits, and alternatives with patient/parents/legal guardian/POA. Questions invited. The patient/parents/legal guardian/POA seems to understand and agrees to proceed with anesthesia plan. Reviewed the physical assessment, medical history, allergy history and patient home medications list prior to surgery/procedure/anesthetic and documented any changes. Performed airway and anesthesia risk assessments. Anesthesia Type Anesthesia Type: General Anesthesia Focused Assessment* Temperature: 97 F Pulse Rate: 84 Blood Pressure: 108/72 Respiratory Rate: 17 Pulse Ox: 96 Airway Assessment Mouth opens: >3 cm Mallampati Score: II Focused Labs Anesthesia Preop lab: CBC WBC 5.8 K/mm3 (4.4-11.0) 03/23/23 08:57 RBC 4.40 M/mm3 (4.6-6.2) L 03/23/23 08:57 Hgb 13.3 g/dL (13.0-16.5) 03/23/23 08:57 Hct 40.5 % (40-54) 03/23/23 08:57 Plt Count 152 K/mm3 (150-450) 03/23/23 08:57 CHEMISTRY Potassium 3.6 mmol/L (3.5-5.1) 03/23/23 08:57 Sodium 141 mmol/L (136-145) 03/23/23 08:57 Magnesium 2.2 mg/dL (1.6-2.6) 04/28/21 08:57 BUN 29 mg/dL (7-18) H 03/23/23 08:57 Creatinine 1.58 mg/dL (0.70-1.30) H 03/23/23 08:57 Glucose 135 mg/dL (74-106) H 03/23/23 08:57 POC Glucose 105 mg/dL (70-110) 12/25/20 10:53 TSH 1.01 uIU/mL (0.358-3.74) 03/23/23 08:57 COAG PT 13.4 SECONDS (11.7-14.9) 01/14/21 09:01 Pre-Assessment Diagnosis/Proposed Procedure Planned Operative Procedure(s): 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 When Was Last Pacemaker Check QUESTION #4 FULL TEXT: You/Your Family Experience fever (hyperthermia) with Anesthesia Last Oral Intake Last Oral intake: Last Oral Intake NPO since 00:00 10/07/23 06:42 Meds taken in AM with sips of No 10/07/23 06:42 water? Meds patient instructed to take am of surgery PONV PONV - metal room dental technician: PONV - metal room dental technician Female No 09/23/23 11:30 HX of Motion Sickness No 09/23/23 11:30 HX of N/V After Surgery No 09/23/23 11:30 Non-Smoker Yes 09/23/23 11:30 Duration of Surgery greater Yes 09/23/23 11:30 than 60 minutes Number of Risk Factors 2 09/23/23 11:30 PONV Score Moderate Risk 09/23/23 11:30 Height & Weight Height & Weight: Anesthesia: Height & Weight Height 6 ft 1 in 10/07/23 06:42 Weight: 105.9 kg 10/07/23 06:42 Body Mass Index (BMI) 30.8 10/07/23 06:42 Respiratory Assessment Respiratory Assessment - metal room dental technician: Respiratory Tract Infection Hx - metal room dental technician Hx Respiratory Tract Infection No 09/23/23 11:30 STOP Sleep Apnea STOP Sleep Apnea - metal room dental technician: STOP Sleep Apnea - metal room dental technician Hx Hypertension Yes: CONTROLLED ON MED 09/23/23 11:30 Hx Sleep Apnea No 09/23/23 11:30 CPAP No 09/23/23 11:30 BIPAP No 09/23/23 11:30 Do you snore loudly (louder No 09/23/23 11:30 than talking or can be heard Do you often feel tired/ No 09/23/23 11:30 fatigued/ sleepy during daytime? Has anyone observed you stop No 09/23/23 11:30 breathing during sleep? STOP Results Negative 09/23/23 11:30 QUESTION #5 FULL TEXT : Do you snore loudly (louder than talking or can be heard through closed doors)? Tobacco Use History Tobacco Use History - metal room dental technician: Tobacco Use History - metal room dental technician Tobacco Use Smoking Status Former smoker 09/23/23 11:30 Hx Tobacco Use Yes 09/23/23 11:30 Years Smoking Packs Smoked per Day Smoking Cessation Date was No - quit smoking greater 09/23/23 11:30 within the last 15 years than 15 years ago Hx Smoking Cessation Date 03/07/81 09/23/23 11:30 Hx Smoking Cessation No 09/23/23 11:30 Counseling Hematologic Medial History Hematologic Hx - metal room dental technician: Hematologic Medical Hx - folder inspector Hx of Blood Transfusion No 09/23/23 11:30 Hx of Transfusion in last 3 No 09/23/23 11:30 Months Date of Last Transfusion (if within last 3 months) Ever experience any problems No 09/23/23 11:30 with transfusion(s)? Specify any problems Hx of Preganancy in last 3 N/A 09/23/23 11:30 Months Nurse Filling Out Transfusion VCHRISTIN 09/23/23 11:30 & Questions: Date: 09/23/23 09/23/23 11:30 Time: 11:32 09/23/23 11:30 Patient unable to answer at this time (ie. confused, unrespo /Reproduction History /Reproductive History - metal room dental technician: /Reproductive Hx- metal room dental technician Hx Now Gestational Age (in weeks): EDC: Hx Hx Para Hx Section SAB Active Medications Active Medications: Current Medications Generic Name Dose Route Start Last Admin Trade Name Freq PRN Reason Stop Dose Admin Acetaminophen 650 mg 10/07/23 07:07 Acetaminophen 325 Mg Tablet PO Q4H PRN PRN Pain Score 1-5 Cefazolin Sodium 2 gm/ Sodium 110 mls @ 150 mls/hr 10/07/23 07:30 Chloride IV 10/07/23 08:13 PREOP ONE Lactated Ringer's 1,000 mls @ 15 mls/hr 10/07/23 06:30 10/07/23 06:30 IV 15 mls/hr .Q48H CATHRYN Administration Metoclopramide HCl 10 mg 10/07/23 07:07 Metoclopramide 10 Mg/2 Ml Vial IV X1 PRN NAUSEA/VOMITING Ondansetron HCl 4 mg 10/07/23 07:07 Ondansetron 4 Mg/2 Ml Vial IV X1 PRN NAUSEA PFSH Medical History Wears dentures Wears glasses History of steroid therapy High cholesterol Back pain History of diverticulitis History of pain when walking History of skin cancer Prostate cancer Cochlear implant in place Superficial thrombosis of right lower extremity Cellulitis Lymphocytic colitis Alcohol use Diabetes Thyroid disease Gout Arthritis Prostate disease Anemia Stroke/cerebrovascular accident Gastric reflux Former smoker Cardiology follow-up encounter History of echocardiogram Bloating Nonrheumatic aortic (valve) insufficiency Left ventricular hypertrophy Lung nodule Meniere disease Presence of stent in coronary artery (~08/16/05) Non-rheumatic aortic stenosis Thoracic aortic aneurysm without rupture Pure hypercholesterolemia Essential hypertension Fatigue Atherosclerotic heart disease of [place] coronary artery without angina pectoris SVT (supraventricular tachycardia) Home Medications ?Medication ?Instructions ?Recorded ?Last Taken ?Type allopurinol 300 mg tablet 300 mg PO DAILY gout 12/05/12 10/06/23 History aspirin 81 mg chewable tablet 81 mg PO DAILY@0800 12/05/12 10/02/23 History multivitamin with folic acid 400 1 tab PO DAILY 12/05/12 10/06/23 History mcg tablet alfuzosin 10 mg tablet,extended 10 mg PO DAILY BPH 09/16/16 10/06/23 History release 24 hr finasteride 5 mg tablet 5 mg PO QDAY 09/05/17 10/06/23 History cholecalciferol (vitamin D3) 10 10 mcg PO DAILY 12/02/20 10/06/23 History mcg (400 unit) tablet insulin glargine U-300 conc 300 24 unit subcut QHS 12/02/20 10/06/23 History unit/mL (3 mL) subcutaneous pen (Toujeo Max U-300 SoloStar) acetaminophen 500 mg tablet 500 mg PO Q6H PRN Pain 03/30/21 10/06/23 History clopidogrel 75 mg tablet 75 mg PO DAILY 03/30/21 10/02/23 History levothyroxine 150 mcg tablet 150 mcg PO .COMPLEX 03/30/21 10/06/23 History metoprolol succinate 50 mg 50 mg PO BID 03/30/21 10/06/23 History tablet,extended release 24 hr dapagliflozin propanediol 5 mg 5 mg PO DAILY 05/01/21 10/06/23 History tablet (Farxiga) metformin 750 mg tablet,extended 750 mg PO BID 05/01/21 10/06/23 History release 24 hr triamterene 37.5 1.5 tab PO DAILY 05/01/21 10/06/23 History mg-hydrochlorothiazide 25 mg tablet omega-3 fatty acids 1,000 mg 1,000 mg PO DAILY 12/07/21 10/06/23 History capsule rosuvastatin 40 mg tablet 40 mg PO DAILY #90 tabs 01/21/23 10/06/23 Rx semaglutide 2 mg/dose (8 mg/3 mL) 2 mg subcut QWEEK 09/06/23 10/02/23 History subcutaneous pen injector (Ozempic) Lactobacillus acidophilus 10 100 mmu cells PO DAILY 09/23/23 10/06/23 History billion cell capsule (NewFlora) ciprofloxacin HCl 500 mg tablet 500 mg PO BID #10 tabs 10/07/23 Unknown Rx (Cipro) Allergy/AdvReac Type Severity Reaction Status Date / Time atorvastatin (From Lipitor) AdvReac Severe Myalgias Verified 10/07/23 06:34 simvastatin (From Zocor) AdvReac Severe Myalgias Verified 10/07/23 06:34 Family History Father CAD (coronary artery disease) Myocardial infarction Mother CAD (coronary artery disease) Brother Colon cancer Surgical History History of coronary artery bypass surgery (~03/10/21) History of aortic valve replacement with bioprosthetic valve (~03/10/21) History of left heart catheterization (LHC) (~02/03/21) History of right hip replacement History of colonoscopy Presence of coronary angioplasty implant and graft (~08/16/05) History of cochlear implant Hx of cataract surgery H/O hernia repair Social History Smoking Status: Former smoker alcohol intake: current alcohol intake frequency: a few times a week substance use type: does not use caffeine: Yes Type: coffee Number of servings: 1 Review of Systems (Anesthesia) ROS Narrative System reviewed and no additional complaints, except as documented.
[2023-10-07] MEDS: Cefazolin 2 GM in 0.9% Normal Saline (100mL Bag) 100 ML IV (07:32)
--- NOTE | 2023-10-07 07:48 | OP.PCM_ITS ---
Report of Operation Date of Procedure: 10/07/23 Pre-Operative Diagnosis: prostate cancer Post-Operative Diagnosis: same Surgery/Procedure Performed:: Placement of spacer gel and markers for prostate cancer planning for radiation Description of Surgical Findings:: 78-year-old male with a history of prostate cancer intermediate grade prostate cancer he desired to have treatment with radiation therapy so today we will place spacers and markers in the prostate Patient was taken back to the operating room after smooth induction of anesthesia he was placed supine on the table. The genitals and perineum were prepped and draped in usual sterile fashion. I then introduced a biplanar ultrasound probe into the rectum and performed ultrasonography and identified the Denonvilliers' fascia the prostate mid base and apex and seminal vesicles. The spacer gel mix was then prepared on the back table per manufactures instruction. Under ultrasound guidance in the midline perineum a bevel needle down we advanced through the perineum below the prostate into the space of Denonvilliers' fascia. This space which could be identified by ultrasound with a bright white layer between the prostate and the rectum. I then injected a puff of normal saline to identify the space further. After I confirmed that the needle was in the correct space in the mid prostate and the space of Denonvilliers' fascia between the rectum and the prostate. Then over the course of 15 seconds the gel matrix was injected slowly there was nice separation between the prostate and the rectum at the gel matrix was injected. Then the ultrasound probe was placed into the rectum and biplanar ultrasound was performed on the prostate. Identified the base mid and apex of the prostate identified the transition zone prostate. Then using a needle the first sales product specialist was placed into the right base of the prostate, the second sales product specialist was placed in the left base of the prostate, and the third core marker was placed in the right apex of the prostate after all 3 markers were placed the placement of the markers were confirmed by ultrasonography. The position of the gel matrix was confirmed by ultrasound. Then the injection needle was removed intact. Patient's perineum was cleaned patient was taken out of stirrups and then taken back to the PACU in good condition. Surgeon: Ramy Padilla Type of Anesthesia: General Drains: none Estimated Blood Loss (mL): 0 Admit VTE Documentation VTE Present on Admission: No VTE Mechan Device Prophylaxis: SCD's VTE Pharm Prophylaxis ordered?: No
--- NOTE | 2023-10-07 07:57 | PCM.POST.ANE ---
Anesthesia: Postop Eval I Current Vital Signs Temperature: 97.9 F Pulse Rate: 78 Blood Pressure: 121/104 (moving, to retake pressure) Respiratory Rate: 16 Pulse Ox: 94 Oxygen Delivery Method: Nasal Cannula Oxygen Flow Rate (L/min): 2 Assessment Airway patent: Yes Spontaneous unlabored respirations: Yes Mental status: Awake and Calm nausea: No Vomiting: No Anesthesia Complication: No Fluid Hydration Crystalloid volume administer (ml): 200 Total IV fluid infused: 200 Progress Note Anesthesia document: Postop Eval 1 completed: Yes
[2023-10-07 09:23] LABS: Bedside Glucose 108 mg/dL (74-106)
--- NOTE | 2023-10-07 09:47 | POSTOPAN2_ITS ---
Anesthesia Postop Eval I Sum Postop Eval Completion status Anesthesia document: Postop Eval 1 completed: Yes Anesthesia Postop Eval I Summary Anesthesia Postop Eval I Summary: Anesthesia Postop Eval I: Assessment Summary Airway patent Yes 10/07/23 07:58 MECHANICAL PRODUCT ENGINEER.[email or web address] Spontaneous unlabored Yes 10/07/23 07:58 MECHANICAL PRODUCT ENGINEER.BENSON respirations Mental status Awake,Calm 10/07/23 07:58 MECHANICAL PRODUCT ENGINEER.BENSON nausea No 10/07/23 07:58 MECHANICAL PRODUCT ENGINEER.BENSON Vomiting No 10/07/23 07:58 MECHANICAL PRODUCT ENGINEERKOKO Anesthesia Postop Eval I: Fluid Summary Crystalloid volume administer 200 10/07/23 07:58 MECHANICAL PRODUCT ENGINEER.BENSON (ml) Colloids volume administered ( ml) Blood Product volume administered (ml) Total IV fluid infused 200 10/07/23 07:58 MECHANICAL PRODUCT ENGINEERKOKO Anesthesia Postop Eval I: Summary Notes Anesthesia Complication No 10/07/23 07:58 MECHANICAL PRODUCT ENGINEERKOKO Anesthesia Complication Comment: Post-operative progress note Anesthesia: Postop Eval II Evaluation Mental status: Awake Pain Level: 0 nausea: No Vomiting: No Complications Anesthesia Complication: No
--- NOTE | 2023-10-07 09:47 | PCM.POSTANE2 ---
Anesthesia Postop Eval I Sum Postop Eval Completion status Anesthesia document: Postop Eval 1 completed: Yes Anesthesia Postop Eval I Summary Anesthesia Postop Eval I Summary: Anesthesia Postop Eval I: Assessment Summary Airway patent Yes 10/07/23 07:58 [employer][email or web address] Spontaneous unlabored Yes 10/07/23 07:58 [employer]BENSON respirations Mental status Awake,Calm 10/07/23 07:58 [employer]BENSON nausea No 10/07/23 07:58 [employer]BENSON Vomiting No 10/07/23 07:58 [employer] Anesthesia Postop Eval I: Fluid Summary Crystalloid volume administer 200 10/07/23 07:58 [employer]BENSON (ml) Colloids volume administered ( ml) Blood Product volume administered (ml) Total IV fluid infused 200 10/07/23 07:58 [employer] Anesthesia Postop Eval I: Summary Notes Anesthesia Complication No 10/07/23 07:58 [employer] Anesthesia Complication Comment: Post-operative progress note Anesthesia: Postop Eval II Evaluation Mental status: Awake Pain Level: 0 nausea: No Vomiting: No Complications Anesthesia Complication: No
== END 2023-10-07 08:50 | disposition home or self-care (01) ==
LOC: SDC 06:07 → AC 06:10
PROVIDERS: PCP Internal Medicine; Referring Provider Urology; Visit Provider Urology
PROC: (CPT 55874; principal; 2023-10-07 07:15)
DX: C61 Malignant neoplasm of prostate (principal); E11.9 Type 2 diabetes mellitus without complications; Z79.4 Long term (current) use of insulin; I25.10 Atherosclerotic heart disease of native coronary artery without angina pectoris; E78.00 Pure hypercholesterolemia, unspecified; I10 Essential (primary) hypertension; Z79.82 Long term (current) use of aspirin; Z79.899 Other long term (current) drug therapy; Z79.84 Long term (current) use of oral hypoglycemic drugs; Z87.891 Personal history of nicotine dependence; Z86.73 Personal history of transient ischemic attack (TIA), and cerebral infarction without residual deficits; Z95.5 Presence of coronary angioplasty implant and graft; Z95.1 Presence of aortocoronary bypass graft
CPT/HCPCS: 55876; 55874; 00902; 82962; J7120; J2405

== ENCOUNTER → 2024-04-17 | Outpatient (CLI) | payer MEDICARE, SELFPAY ==
[2021-07-27 06:46] VITALS: BMI 32.3
[2024-04-17 10:14] LABS: Absolute Lymphocyte Count 1.11 X10^3/uL (0.83-4.51); Absolute Neutrophil Count 5.4 X10^3/uL (2.0-7.7); Basophil# 0.05 X10^3/uL; Basophil% 0.7 % (0-1); Eosinophil# 0.19 X10^3/uL; Eosinophils% 2.6 % (0-5); Hematocrit 38.2 % (40-54); Hemoglobin 12.1 g/dL (13.0-16.5); Lymphocyte # 1.11 X10^3/ul (0.83-4.51); Lymphocyte % 15.1 % (19-41); Mean Corp Hgb Conc 31.7 g/dL (32-36); Mean Corpuscular Hgb 29.9 pg (27.0-32.0); Mean Corpuscular Volume 94.3 fL (80-94); Mean Platelet Vol. 10.6 fl (6.2-12.0); Monocyte# 0.49 X10^3/uL; Monocyte% 6.7 % (0-10); NRBC Flagged by Analyzer 0 % (0-5); Neutrophil # 5.43 X10^3/uL (2.7-7.7); Neutrophil % 73.8 % (47-70); POSITIVE COUNT YES; Platelet Count 134 K/mm3 (150-450); RBC Distribution Width CV 14.2 % (11.6-14.6); RBC Distribution Width SD 48.3 fl (35.1-43.9); Red Blood Count 4.05 M/mm3 (4.6-6.2); White Blood Count 7.4 K/mm3 (4.4-11.0)
[2024-04-17 11:10] LABS: Microalbumin,Random Urine 43.8 mg/L (NO RANGE EST.); Microalbumin:Creatinine Ratio 59.1 mg/g CRE (<30 mg/g CRE)
[2024-04-17 11:40] LABS: Differential Indicated SCAN CRITERIA MET
[2024-04-17 11:44] LABS: Platelet Morphology GIANT
[2024-04-17 11:45] LABS: Platelet Estimate SLT DEC (ADEQ)
[2024-04-17 13:04] LABS: AST(SGOT) 23 U/L (15-37); Alanine Aminotransfer ALT/SGPT 22 U/L (16-61); Albumin, Serum 3.4 g/dL (3.2-5.0); Alkaline Phosphatase 56 U/L (45-117); Anion Gap 6 (5-15); BUN 28 mg/dL (7-18); BUN/Creat Ratio 20.9 RATIO (10-20); Calcium,Total 9.4 mg/dL (8.5-10.1); Chloride 106 mmol/L (98-107); Cholesterol 164 mg/dL (200); Creatinine, Serum 1.34 mg/dL (0.70-1.30); EST Glomerular Filtration Rate 54 mL/min (>60); Est Glom Filt Rate - Afr Amer 66 mL/min (>60); Globulin 3.4 g/dL (2.2-4.2); Glucose 86 mg/dL (74-106); High Density Lipoprotein 62 mg/dL; Potassium 4.4 mmol/L (3.5-5.1); Protein, Total 6.8 g/dL (6.4-8.2); Sodium Level 139 mmol/L (136-145); Triglycerides 118 mg/dL; Very Low Density Lipoprotein 24 mg/dL (5-40)
== END | disposition home or self-care (01) ==
LOC: MTLAB 09:06
PROVIDERS: PCP Internal Medicine; Referring Provider Nurse Practitioner Family; Visit Provider Nurse Practitioner Family
DX: E78.00 Pure hypercholesterolemia, unspecified (principal); E11.29 Type 2 diabetes mellitus with other diabetic kidney complication; E11.22 Type 2 diabetes mellitus with diabetic chronic kidney disease; N18.30 Chronic kidney disease, stage 3 unspecified; E03.9 Hypothyroidism, unspecified
CPT/HCPCS: 36415; 80053; 80061; 82043; 82570; 84443; 85025

== ENCOUNTER → 2024-07-23 | Outpatient (CLI) | payer MEDICARE, SELFPAY ==
[2021-07-27 06:46] VITALS: BMI 32.3
[2024-07-23 10:05] LABS: Absolute Lymphocyte Count 0.65 X10^3/uL (0.83-4.51); Absolute Neutrophil Count 5.1 X10^3/uL (2.0-7.7); Basophil# 0.03 X10^3/uL; Basophil% 0.5 % (0-1); Eosinophil# 0.18 X10^3/uL; Eosinophils% 2.7 % (0-5); Hematocrit 34.9 % (40-54); Hemoglobin 11.4 g/dL (13.0-16.5); Lymphocyte # 0.65 X10^3/ul (0.83-4.51); Lymphocyte % 9.9 % (19-41); Mean Corp Hgb Conc 32.7 g/dL (32-36); Mean Corpuscular Hgb 30.6 pg (27.0-32.0); Mean Corpuscular Volume 93.6 fL (80-94); Mean Platelet Vol. 10.4 fl (6.2-12.0); Monocyte# 0.47 X10^3/uL; Monocyte% 7.1 % (0-10); NRBC Flagged by Analyzer 0 % (0-5); Neutrophil # 5.14 X10^3/uL (2.7-7.7); Neutrophil % 78.1 % (47-70); Platelet Count 129 K/mm3 (150-450); RBC Distribution Width CV 13.7 % (11.6-14.6); RBC Distribution Width SD 46.5 fl (35.1-43.9); Red Blood Count 3.73 M/mm3 (4.6-6.2); White Blood Count 6.6 K/mm3 (4.4-11.0)
[2024-07-23 10:46] LABS: ALB/GLOB Ratio 1.7 RATIO (0.9-2.4); AST(SGOT) 21 U/L (<=37); Alanine Aminotransfer ALT/SGPT 15 U/L (<=46); Alkaline Phosphatase 59 U/L (40-129); Anion Gap 13 (5-15); BUN 21 mg/dL (4-19); BUN/Creat Ratio 14.2 RATIO (10-20); Carbon Dioxide 24.8 mmol/L (21.0-32.0); Chloride 103 mmol/L (98-108); Creatinine, Serum 1.48 mg/dL (0.70-1.20); EST Glomerular Filtration Rate 47 (>60); Globulin 2.4 g/dL (2.2-4.2); Glucose 143 mg/dL (70-99); PSA,Total- Diagnostic < 0.02 ng/mL (0.00-4.00); Potassium 3.9 mmol/L (3.3-5.1); Protein, Total 6.4 g/dL (5.9-8.4); Sodium Level 140 mmol/L (133-145); Total Bilirubin 0.26 mg/dL (0.00-1.30)
== END | disposition home or self-care (01) ==
LOC: MTLAB 09:02
PROVIDERS: PCP Internal Medicine; Referring Provider Nurse Practitioner Family; Visit Provider Nurse Practitioner Family
DX: C61 Malignant neoplasm of prostate (principal); N18.30 Chronic kidney disease, stage 3 unspecified; D64.9 Anemia, unspecified
CPT/HCPCS: 36415; 80053; 84153; 85025

== ENCOUNTER 2024-08-13 10:07 | Day surgery (SDC) | payer MEDICARE, SELFPAY ==
[2021-07-27 06:46] VITALS: BMI 32.3
--- NOTE | 2024-08-09 16:48 | PAT.ANESEVAL ---
Pre-Assessment Diagnosis/Proposed Procedure Planned Operative Procedure(s): EGD Anesthesia History Anesthesia History - mobile ui developer: Anesthesia History - mobile ui developer Hx Hospitalization No 08/09/24 11:43 Any Problems With Anesthesia No 08/09/24 11:43 Cholinesterase deficiency No 08/09/24 11:43 You/Your Family Experience No 08/09/24 11:43 fever (hyperthermia) with Relationship Recent Exposure to Contagious No 10/07/23 06:42 Disease Does patient have nerve No 08/09/24 11:43 stimulator Patient instructed to have device shut off --Does patient have Pacemaker or ICD? When Was Last Pacemaker Check QUESTION #4 FULL TEXT: You/Your Family Experience fever (hyperthermia) with Anesthesia Last Oral Intake Last Oral intake: Last Oral Intake NPO since Meds taken in AM with sips of water? Meds patient instructed to take am of surgery PONV PONV - mobile ui developer: PONV - mobile ui developer Female No 08/09/24 11:43 HX of Motion Sickness No 08/09/24 11:43 HX of N/V After Surgery No 08/09/24 11:43 Non-Smoker Yes 08/09/24 11:43 Duration of Surgery greater No 08/09/24 11:43 than 60 minutes Number of Risk Factors 1 08/09/24 11:43 PONV Score Low Risk 08/09/24 11:43 Height & Weight Height & Weight: Anesthesia: Height & Weight Height 6 ft 1 in 06/22/24 13:31 Respiratory Assessment Respiratory Assessment - mobile ui developer: Respiratory Tract Infection Hx - mobile ui developer Hx Respiratory Tract Infection No 08/09/24 11:43 STOP Sleep Apnea STOP Sleep Apnea - mobile ui developer: STOP Sleep Apnea - mobile ui developer Hx Hypertension Yes: CONTROLLED WITH MED 08/09/24 11:43 Hx Sleep Apnea No 08/09/24 11:43 CPAP No 10/07/23 07:56 BIPAP No 09/23/23 11:30 Do you snore loudly (louder No 08/09/24 11:43 than talking or can be heard Do you often feel tired/ No 08/09/24 11:43 fatigued/ sleepy during daytime? Has anyone observed you stop No 08/09/24 11:43 breathing during sleep? STOP Results Negative 08/09/24 11:43 QUESTION #5 FULL TEXT : Do you snore loudly (louder than talking or can be heard through closed doors)? 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 Specify any problems Hx of Preganancy in last 3 N/A 08/09/24 11:43 Months Nurse Filling Out Transfusion NBUCHER 08/09/24 11:43 & Questions: Date: 08/09/24 08/09/24 11:43 Time: 11:44 08/09/24 11:43 Patient unable to answer at this time (ie. confused, unrespo /Reproduction History /Reproductive History - mobile ui developer: /Reproductive Hx- mobile ui developer Hx Now No 08/09/24 11:43 Gestational Age (in weeks): EDC: Hx Hx Para Hx Section SAB No 08/09/24 11:43 [facility] Medical History (Updated 08/09/24 @ 11:48 by Jillian Blue) History of radiation therapy Cancer Wears dentures Wears glasses History of steroid therapy High cholesterol Back pain History of diverticulitis History of pain when walking History of skin cancer Prostate cancer Cochlear implant in place Superficial thrombosis of right lower extremity Cellulitis Lymphocytic colitis Alcohol use Diabetes Thyroid disease Gout Arthritis Prostate disease Anemia Stroke/cerebrovascular accident Gastric reflux Former smoker Cardiology follow-up encounter History of echocardiogram Bloating Nonrheumatic aortic (valve) insufficiency Left ventricular hypertrophy Lung nodule Meniere disease Presence of stent in coronary artery (~08/16/05) Non-rheumatic aortic stenosis Thoracic aortic aneurysm without rupture Pure hypercholesterolemia Essential hypertension Fatigue Atherosclerotic heart disease of [place] coronary artery without angina pectoris SVT (supraventricular tachycardia) Home Medications ?Medication ?Instructions ?Recorded ?Last Taken ?Type allopurinol 300 mg tablet 300 mg PO DAILY gout 12/05/12 10/06/23 History aspirin 81 mg chewable tablet 81 mg PO DAILY@0800 12/05/12 10/02/23 History multivitamin with folic acid 400 1 tab PO DAILY 12/05/12 10/06/23 History mcg tablet alfuzosin 10 mg tablet,extended 10 mg PO DAILY BPH 09/16/16 10/06/23 History release 24 hr finasteride 5 mg tablet 5 mg PO QDAY 09/05/17 10/06/23 History cholecalciferol (vitamin D3) 10 10 mcg PO DAILY 12/02/20 10/06/23 History mcg (400 unit) tablet acetaminophen 500 mg tablet 500 mg PO Q6H PRN Pain 03/30/21 10/06/23 History clopidogrel 75 mg tablet 75 mg PO DAILY 03/30/21 10/02/23 History levothyroxine 150 mcg tablet 150 mcg PO DAILY 03/30/21 10/06/23 History dapagliflozin propanediol 5 mg 5 mg PO DAILY 05/01/21 10/06/23 History tablet (Farxiga) metformin 750 mg tablet,extended 750 mg PO BID 05/01/21 10/06/23 History release 24 hr triamterene 37.5 1.5 tab PO DAILY 05/01/21 10/06/23 History mg-hydrochlorothiazide 25 mg tablet omega-3 fatty acids 1,000 mg 1,000 mg PO DAILY 12/07/21 10/06/23 History capsule semaglutide 2 mg/dose (8 mg/3 mL) 2 mg subcut IBRAHIM 09/06/23 10/02/23 History subcutaneous pen injector (Ozempic) insulin glargine U-300 conc 300 38 unit subcut QHS 11/24/23 Unknown History unit/mL (3 mL) subcutaneous pen (Toujeo Max U-300 SoloStar) rosuvastatin 40 mg tablet 40 mg PO DAILY #90 tabs 12/01/23 Unknown Rx omeprazole 20 mg capsule,delayed 20 mg PO BID #90 caps 01/19/24 Unknown Rx release meclizine 50 mg tablet 100 mg PO QDAY PRN dizziness 06/22/24 Unknown History metoprolol succinate 50 mg 50 mg PO QDAY 06/22/24 Unknown History tablet,extended release 24 hr tramadol 50 mg tablet 50 mg PO TID PRN PRN pain 08/09/24 Unknown History Allergy/AdvReac Type Severity Reaction Status Date / Time atorvastatin (From Lipitor) AdvReac Severe Myalgias Verified 08/09/24 11:34 simvastatin (From Zocor) AdvReac Severe Myalgias Verified 08/09/24 11:34 Family History Father CAD (coronary artery disease) Myocardial infarction Mother CAD (coronary artery disease) Brother Colon cancer Surgical History History of coronary artery bypass surgery (~03/10/21) History of aortic valve replacement with bioprosthetic valve (~03/10/21) History of left heart catheterization (LHC) (~02/03/21) History of right hip replacement History of colonoscopy Presence of coronary angioplasty implant and graft (~08/16/05) History of cochlear implant Hx of cataract surgery H/O hernia repair Social History Smoking Status: Former smoker alcohol intake: current alcohol intake frequency: a few times a week substance use type: does not use caffeine: Yes Type: coffee Number of servings: 1 Audit: Pertinent Findings Pertinent Findings EKG Perinent findings: January 09, 2021. Sinus rhythm?first-degree AV block. Echo (EF%) pertinent findings: June 27, 2023. EF 60%. No aortic stenosis. Heart catheterization pertinent findings: February 03, 2021. [place] multivessel coronary artery disease. 75% stenosis of the OM1 proximal. 75% stenosis of the mid RCA. (Status post coronary artery bypass graft March 10, 2021.) Consult pertinent findings: June 22, 2024. Dr. Holland. 1. Atherosclerotic heart disease of [place] coronary artery without angina pectoris?chronic-patient status post coronary bypass graft and aortic valve replacement in 2021. SVG to the OM 2. And SVG to the PDA. Patient denies recurrence of prior surgical intervention symptoms. 2. Hypertension?[id number]. 3. Status post aortic valve replacement with bioprosthetic valve?acute-SBE prophylaxis. Recommendation Anesthesia Recommendation Anesthesia recommendation: OPTIMIZED for anesthesia
[2024-08-13] VITALS (9 sets, daily range): BP systolic 108–142; BP diastolic 69–75; PULSE 72–80; RESP 16; TEMP 36.1–36.4; O2SAT 95–100; BMI 31.5
--- NOTE | 2024-08-13 10:47 | PCM.PRE.AN2 ---
ASA Classification* ASA Classification ASA Classification: 3 Assessment & Plan Anesthesia* Anesthesia Assessment Anesthesia Assessment: Discussed sedation and/or anesthesia options, risks, benefits, and alternatives with patient/parents/legal guardian/POA. Questions invited. The patient/parents/legal guardian/POA seems to understand and agrees to proceed with anesthesia plan. Reviewed the physical assessment, medical history, allergy history and patient home medications list prior to surgery/procedure/anesthetic and documented any changes. Performed airway and anesthesia risk assessments. Anesthesia Type Anesthesia Type: MAC Anesthesia Focused Assessment* Temperature: 97.5 F Pulse Rate: 72 Blood Pressure: 142/74 Respiratory Rate: 16 Pulse Ox: 99 Airway Assessment Mouth opens: >3 cm Mallampati Score: II Labs Anesthesia Preop lab: CBC WBC 6.6 K/mm3 (4.4-11.0) 07/23/24 09:04 07/23/24 RBC 3.73 M/mm3 (4.6-6.2) L 07/23/24 09:04 07/23/24 Hgb 11.4 g/dL (13.0-16.5) L 07/23/24 09:04 07/23/24 Hct 34.9 % (40-54) L 07/23/24 09:04 07/23/24 Plt Count 129 K/mm3 (150-450) L 07/23/24 09:04 07/23/24 CHEMISTRY Potassium 3.9 mmol/L (3.3-5.1) 07/23/24 09:04 07/23/24 Sodium 140 mmol/L (133-145) 07/23/24 09:04 07/23/24 Magnesium 2.2 mg/dL (1.6-2.6) 04/28/21 08:57 04/28/21 BUN 21 mg/dL (4-19) H 07/23/24 09:04 07/23/24 Creatinine 1.48 mg/dL (0.70-1.20) H 07/23/24 09:04 07/23/24 Glucose 143 mg/dL (70-99) H 07/23/24 09:04 07/23/24 POC Glucose 108 mg/dL (74-106) H 10/07/23 06:30 10/07/23 TSH 1.760 uIU/mL (0.358-3.740) 04/17/24 09:16 04/17/24 COAG PT 13.4 SECONDS (11.7-14.9) 01/14/21 09:01 01/14/21 Pre-Assessment Diagnosis/Proposed Procedure Planned Operative Procedure(s): EGD Anesthesia History Anesthesia History - linux administrator: Anesthesia History - linux administrator Hx Hospitalization No 08/09/24 11:43 Any Problems With Anesthesia No 08/09/24 11:43 Cholinesterase deficiency No 08/09/24 11:43 You/Your Family Experience No 08/09/24 11:43 fever (hyperthermia) with Relationship Recent Exposure to Contagious No 08/13/24 10:35 Disease Does patient have nerve No 08/09/24 11:43 stimulator Patient instructed to have device shut off --Does patient have Pacemaker No 08/13/24 10:35 or ICD? When Was Last Pacemaker Check QUESTION #4 FULL TEXT: You/Your Family Experience fever (hyperthermia) with Anesthesia Last Oral Intake Last Oral intake: Last Oral Intake NPO since 23:00 08/13/24 10:35 Meds taken in AM with sips of Yes 08/13/24 10:35 water? Meds patient instructed to take am of surgery PONV PONV - linux administrator: PONV - linux administrator Female No 08/09/24 11:43 HX of Motion Sickness No 08/09/24 11:43 HX of N/V After Surgery No 08/09/24 11:43 Non-Smoker Yes 08/09/24 11:43 Duration of Surgery greater No 08/09/24 11:43 than 60 minutes Number of Risk Factors 1 08/09/24 11:43 PONV Score Low Risk 08/09/24 11:43 Height & Weight Height & Weight: Anesthesia: Height & Weight Height 6 ft 1 in 08/13/24 10:35 Weight: 108.3 kg 08/13/24 10:35 Body Mass Index (BMI) 31.5 08/13/24 10:35 Respiratory Assessment Respiratory Assessment - linux administrator: Respiratory Tract Infection Hx - linux administrator Hx Respiratory Tract Infection No 08/09/24 11:43 STOP Sleep Apnea STOP Sleep Apnea - linux administrator: STOP Sleep Apnea - linux administrator Hx Hypertension Yes: CONTROLLED WITH MED 08/09/24 11:43 Hx Sleep Apnea No 08/09/24 11:43 CPAP No 10/07/23 07:56 BIPAP No 09/23/23 11:30 Do you snore loudly (louder No 08/09/24 11:43 than talking or can be heard Do you often feel tired/ No 08/09/24 11:43 fatigued/ sleepy during daytime? Has anyone observed you stop No 08/09/24 11:43 breathing during sleep? STOP Results Negative 08/09/24 11:43 QUESTION #5 FULL TEXT : Do you snore loudly (louder than talking or can be heard through closed doors)? 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 Specify any problems Hx of Preganancy in last 3 N/A 08/09/24 11:43 Months Nurse Filling Out Transfusion NBUCHER 08/09/24 11:43 & Questions: Date: 08/09/24 08/09/24 11:43 Time: 11:44 08/09/24 11:43 Patient unable to answer at this time (ie. confused, unrespo /Reproduction History /Reproductive History - linux administrator: /Reproductive Hx- linux administrator Hx Now No 08/09/24 11:43 Gestational Age (in weeks): EDC: Hx Hx Para Hx Section SAB No 08/09/24 11:43 Active Medications Active Medications: Current Medications Generic Name Dose Route Start Last Admin Trade Name Freq PRN Reason Stop Dose Admin Lactated Ringer's 1,000 mls @ 15 mls/hr 08/13/24 10:30 IV .Q48H CATHRYN PFSH Medical History History of radiation therapy Cancer Wears dentures Wears glasses History of steroid therapy High cholesterol Back pain History of diverticulitis History of pain when walking History of skin cancer Prostate cancer Cochlear implant in place Superficial thrombosis of right lower extremity Cellulitis Lymphocytic colitis Alcohol use Diabetes Thyroid disease Gout Arthritis Prostate disease Anemia Stroke/cerebrovascular accident Gastric reflux Former smoker Cardiology follow-up encounter History of echocardiogram Bloating Nonrheumatic aortic (valve) insufficiency Left ventricular hypertrophy Lung nodule Meniere disease Presence of stent in coronary artery (~08/16/05) Non-rheumatic aortic stenosis Thoracic aortic aneurysm without rupture Pure hypercholesterolemia Essential hypertension Fatigue Atherosclerotic heart disease of [place] coronary artery without angina pectoris SVT (supraventricular tachycardia) Home Medications ?Medication ?Instructions ?Recorded ?Last Taken ?Type allopurinol 300 mg tablet 300 mg PO DAILY gout 12/05/12 08/13/24 07:30 History aspirin 81 mg chewable tablet 81 mg PO DAILY@0800 12/05/12 08/09/24 History multivitamin with folic acid 400 1 tab PO DAILY 12/05/12 10/06/23 History mcg tablet alfuzosin 10 mg tablet,extended 10 mg PO DAILY BPH 09/16/16 10/06/23 History release 24 hr finasteride 5 mg tablet 5 mg PO QDAY 09/05/17 10/06/23 History cholecalciferol (vitamin D3) 10 10 mcg PO DAILY 12/02/20 10/06/23 History mcg (400 unit) tablet acetaminophen 500 mg tablet 500 mg PO Q6H PRN Pain 03/30/21 08/13/24 07:30 History clopidogrel 75 mg tablet 75 mg PO DAILY 03/30/21 08/09/24 History levothyroxine 150 mcg tablet 150 mcg PO DAILY 03/30/21 08/13/24 07:30 History dapagliflozin propanediol 5 mg 5 mg PO DAILY 05/01/21 08/09/24 History tablet (Farxiga) metformin 750 mg tablet,extended 750 mg PO BID 05/01/21 10/06/23 History release 24 hr triamterene 37.5 1.5 tab PO DAILY 05/01/21 10/06/23 History mg-hydrochlorothiazide 25 mg tablet omega-3 fatty acids 1,000 mg 1,000 mg PO DAILY 12/07/21 08/09/24 History capsule semaglutide 2 mg/dose (8 mg/3 mL) 2 mg subcut IBRAHIM 09/06/23 08/05/24 History subcutaneous pen injector (Ozempic) insulin glargine U-300 conc 300 38 unit subcut QHS 11/24/23 08/12/24 History unit/mL (3 mL) subcutaneous pen (Toujeo Max U-300 SoloStar) rosuvastatin 40 mg tablet 40 mg PO DAILY #90 tabs 12/01/23 Unknown Rx omeprazole 20 mg capsule,delayed 20 mg PO BID #90 caps 01/19/24 08/13/24 07:30 Rx release meclizine 50 mg tablet 100 mg PO QDAY PRN dizziness 06/22/24 Unknown History metoprolol succinate 50 mg 50 mg PO QDAY 06/22/24 08/13/24 07:30 History tablet,extended release 24 hr tramadol 50 mg tablet 50 mg PO TID PRN PRN pain 08/09/24 Unknown History Allergy/AdvReac Type Severity Reaction Status Date / Time atorvastatin (From Lipitor) AdvReac Severe Myalgias Verified 08/13/24 10:32 simvastatin (From Zocor) AdvReac Severe Myalgias Verified 08/13/24 10:32 Family History Father CAD (coronary artery disease) Myocardial infarction Mother CAD (coronary artery disease) Brother Colon cancer Surgical History History of coronary artery bypass surgery (~03/10/21) History of aortic valve replacement with bioprosthetic valve (~03/10/21) History of left heart catheterization (LHC) (~02/03/21) History of right hip replacement History of colonoscopy Presence of coronary angioplasty implant and graft (~08/16/05) History of cochlear implant Hx of cataract surgery H/O hernia repair Social History Smoking Status: Former smoker alcohol intake: current alcohol intake frequency: a few times a week substance use type: does not use caffeine: Yes Type: coffee Number of servings: 1 Review of Systems (Anesthesia) ROS Narrative System reviewed and no additional complaints, except as documented.
[2024-08-13] MEDS: Lactated Ringers 1,000 ML 15 ML IV (10:48)
[2024-08-13 11:09] LABS: Bedside Glucose 163 mg/dL (74-106)
--- NOTE | 2024-08-13 11:10 | PCM.HP.STD ---
HPI - General General Date of Admission: 08/13/24 Date of Service: 08/13/24 Chief Complaint: Abdominal pain and heartburn HPI Narrative NICK NAVARRO, is a 79 M who presents for evaluation of abdominal pain and heartburn EGD 11.05.21; - LA Grade A reflux esophagitis. Biopsied. - Erythematous mucosa in the antrum. Biopsied. - Duodenitis. Biopsied. - Medium-sized hiatal hernia Colonoscopy 11.05.21; - Preparation of the colon was fair. - Hemorrhoids found on perianal exam. - No specimens collected. - Severe diverticulosis in the sigmoid colon. There was no evidence of diverticular bleeding. There was narrowing of the colon in association with the diverticular opening. There was evidence of diverticular spasm. Erythema was seen in association with the diverticular opening. - Hemorrhoids. - Redundant colon. - The entire examined colon is normal on direct and retroflexion views. - Random biopsies were taken through the colon to rule out microscopic colitis [facility] established in 2021 for lymphocytic colitis. Since 2021 he has been treated for prostate cancer and just finished radiation therapy. Pt now having burning epigastric pain and gas. Pain is worse at night. Started shortly after induction of semiglutide. Also having loose stools but managed with imodium PRN. Pt declined scopes and started on PPI. OV 3.19.25; Pt continues to heartburn pain and epigastric pain everyday. It is worse when he eats and when he lays down at night. He having diarrhea once every couple of weeks and in between he feels constipation. He will take Imodium as needed and eats prunes when he is constipated. [facility] Medical History History of radiation therapy Cancer Wears dentures Wears glasses History of steroid therapy High cholesterol Back pain History of diverticulitis History of pain when walking History of skin cancer Prostate cancer Cochlear implant in place Superficial thrombosis of right lower extremity Cellulitis Lymphocytic colitis Alcohol use Diabetes Thyroid disease Gout Arthritis Prostate disease Anemia Stroke/cerebrovascular accident Gastric reflux Former smoker Cardiology follow-up encounter History of echocardiogram Bloating Nonrheumatic aortic (valve) insufficiency Left ventricular hypertrophy Lung nodule Meniere disease Presence of stent in coronary artery (~08/16/05) Non-rheumatic aortic stenosis Thoracic aortic aneurysm without rupture Pure hypercholesterolemia Essential hypertension Fatigue Atherosclerotic heart disease of [place] coronary artery without angina pectoris SVT (supraventricular tachycardia) Home Medications ?Medication ?Instructions ?Recorded ?Last Taken ?Type allopurinol 300 mg tablet 300 mg PO DAILY gout 12/05/12 08/13/24 07:30 History aspirin 81 mg chewable tablet 81 mg PO DAILY@0800 12/05/12 08/09/24 History multivitamin with folic acid 400 1 tab PO DAILY 12/05/12 10/06/23 History mcg tablet alfuzosin 10 mg tablet,extended 10 mg PO DAILY BPH 09/16/16 10/06/23 History release 24 hr finasteride 5 mg tablet 5 mg PO QDAY 09/05/17 10/06/23 History cholecalciferol (vitamin D3) 10 10 mcg PO DAILY 12/02/20 10/06/23 History mcg (400 unit) tablet acetaminophen 500 mg tablet 500 mg PO Q6H PRN Pain 03/30/21 08/13/24 07:30 History clopidogrel 75 mg tablet 75 mg PO DAILY 03/30/21 08/09/24 History levothyroxine 150 mcg tablet 150 mcg PO DAILY 03/30/21 08/13/24 07:30 History dapagliflozin propanediol 5 mg 5 mg PO DAILY 05/01/21 08/09/24 History tablet (Farxiga) metformin 750 mg tablet,extended 750 mg PO BID 05/01/21 10/06/23 History release 24 hr triamterene 37.5 1.5 tab PO DAILY 05/01/21 10/06/23 History mg-hydrochlorothiazide 25 mg tablet omega-3 fatty acids 1,000 mg 1,000 mg PO DAILY 12/07/21 08/09/24 History capsule semaglutide 2 mg/dose (8 mg/3 mL) 2 mg subcut IBRAHIM 09/06/23 08/05/24 History subcutaneous pen injector (Ozempic) insulin glargine U-300 conc 300 38 unit subcut QHS 11/24/23 08/12/24 History unit/mL (3 mL) subcutaneous pen (Toujeo Max U-300 SoloStar) rosuvastatin 40 mg tablet 40 mg PO DAILY #90 tabs 12/01/23 Unknown Rx omeprazole 20 mg capsule,delayed 20 mg PO BID #90 caps 01/19/24 08/13/24 07:30 Rx release meclizine 50 mg tablet 100 mg PO QDAY PRN dizziness 06/22/24 Unknown History metoprolol succinate 50 mg 50 mg PO QDAY 06/22/24 08/13/24 07:30 History tablet,extended release 24 hr tramadol 50 mg tablet 50 mg PO TID PRN PRN pain 08/09/24 Unknown History Allergy/AdvReac Type Severity Reaction Status Date / Time atorvastatin (From Lipitor) AdvReac Severe Myalgias Verified 08/13/24 10:32 simvastatin (From Zocor) AdvReac Severe Myalgias Verified 08/13/24 10:32 Family History Father CAD (coronary artery disease) Myocardial infarction Mother CAD (coronary artery disease) Brother Colon cancer Surgical History History of coronary artery bypass surgery (~03/10/21) History of aortic valve replacement with bioprosthetic valve (~03/10/21) History of left heart catheterization (LHC) (~02/03/21) History of right hip replacement History of colonoscopy Presence of coronary angioplasty implant and graft (~08/16/05) History of cochlear implant Hx of cataract surgery H/O hernia repair Social History Smoking Status: Former smoker alcohol intake: current alcohol intake frequency: a few times a week substance use type: does not use caffeine: Yes Type: coffee Number of servings: 1 ROS Constitutional Constitutional: Denies fatigue, fever(s), poor appetite, weight gain or weight loss Gastrointestinal Gastrointestinal: Denies belching, bloating, change in bowel habits, change in stool character, chewing difficulty, coffee ground emesis, constipation, cramping, diarrhea, dyspepsia, dysphagia, early satiety, excessive flatus, fecal incontinence, heartburn, hematemesis, hematochezia, hemorrhoids, loose stools, melena, nausea, odynophagia, rectal bleeding, tenesmus, vomiting or weight changes Vital Signs Vital Signs Vital Signs: 08/13/24 10:35 08/13/24 10:35 08/13/24 10:48 Temperature 97.5 F L 97.5 F L Temperature Source Temporal Pulse Rate 72 72 Respiratory Rate 16 16 Respiratory Pattern Normal Blood Pressure 142/74 H 142/74 H Blood Pressure Mean 96 Blood Pressure Source Monitor Blood Pressure Position Semi-Fowlers Blood Pressure Location Left Arm Pulse Ox 99 99 Oxygen Delivery Method Room Air Weight Weight: 238 lb 12.17 oz Body Mass Index (BMI) 31.5 Physical Exam Const alert, oriented x3, no apparent distress and healthy appearing General Appearance: cooperative GI normal to inspection, nondistended, normoactive bowel sounds, soft to palpation, non-tender and non-distended Percussion: normal to percussion Rectal Exam: deferred Results Lab / Micro Data Labs: Laboratory Results - last 24 hr 08/13/24 10:31: POC Glucose 163 H Assessment & Plan Assessment/Plan (1) GERD (gastroesophageal reflux disease): (2) Abdominal pain: PLAN: Affect: normal affect Assessment and Plan Assessment and Plan (1) GERD (gastroesophageal reflux disease): Status: Acute Plan: This is an 79 yo male pt here today f/u. He continues to have epigastric pain and heartburn daily after eating and when laying down. This all started after induction of semaglutide.At his last appointment, we discussed EGD vs treatment with PPI for 3 months. He was on omeprazole 40 mg daily and noticed some improvements but still having the pain daily. He is willing to undergo EGD at this point to establish etiology. He will be scheduled for this today. he will continue Imodium for diarrhea PRN and take prunes for his constipation. -EGD -Continue PPI -Imodium PRN -Prunes for constipation (2) Diarrhea: Status: Acute (3) Constipation: Status: Acute
--- NOTE | 2024-08-13 11:15 | EGD_PTH ---
PATIENT: NICK NAVARRO LOC: EN U#:[id number] AGE/SX: 79/M ROOM: RE08/13/[address]: Dr. Feliberto Castro DO : 1945 BED: DIS: 08/13/2024 SPEC #: [id number] RECD: 08/13/24 13:29 STATUS: OLAYINKA LLUVIA #: [id number] ESTELA: 08/13/24 11:[address]: Feliberto Castro DEPT: SURGICAL PATHOLOGY RECD BY: [place] Taveras ENTERED: 08/13/24 14:14 SP TYPE: EGD BIOPSY ROBER DR: Melinda Irby, SPECIAL EDUCATION BUS DRIVER-C Tissues: A - Esophagus, NOS Procedures: Surgery Specimen Level IV HEADER OPERATION: EGD with biopsy PRE-OP DIAGNOSIS: GERD, abdominal pain TISSUE SUBMITTED: A- Distal esophagus biopsy MICROSCOPIC DIAGNOSIS A. Distal esophagus, biopsy: Squamous mucosa with reactive changes. Columnar mucosa with goblet cell metaplasia - see note. Negative for dysplasia. Note: The diagnosis depends on the location of the biopsy and the extent of the mucosal irregularity. If the biopsy originates from the tubular esophagus and the mucosal irregularity extends at least 1 cm above the top of the gastric folds, this represents [place] mucosa. If the biopsy originates from the gastric cardia and/or the mucosal irregularity is less than 1 cm in extent, this represents intestinal metaplasia. MICROSCOPIC DESCRIPTION Slides are reviewed. GROSS DESCRIPTION A. Received in fixative is one container labeled with the patient's name and designated Distal esophagus biopsy. The specimen consists of multiple irregular fragments of light rod soft tissue that in aggregate measure 1.1 x 0.5 x 0.2 cm. The specimen is totally submitted in one cassette. 08/13/2024 CPT:11888
--- NOTE | 2024-08-13 11:35 | OP.EGD_ITS ---
Patient Name: Shine Jin Procedure Date: 08/13/2024 11:13 AM Date of : 1945 Age: 79 Procedure: Upper GI endoscopy Indications: Epigastric abdominal pain, Functional Dyspepsia Providers: Feliberto Castro DO Referring MD: Jess Howe Medicines: Monitored Anesthesia Care Patient Profile: This is an 79 year old male. Refer to note in patient chart for documentation of history and physical. Patient has symptoms of acute abdominal cramping, acute epigastric abdominal pain and acute dyspepsia. Complications: No immediate complications. Procedure: Pre-Anesthesia Assessment: - Prior to the procedure, a History and Physical was performed, and patient medications and allergies were reviewed. The patient is competent. The risks and benefits of the procedure and the sedation options and risks were discussed with the patient. All questions were answered and informed consent was obtained. Patient identification and proposed procedure were verified by the physician in the pre-procedure area. Mental Status Examination: alert and oriented. Airway Examination: normal oropharyngeal airway and neck mobility. Respiratory Examination: clear to auscultation. CV Examination: normal. Prophylactic Antibiotics: The patient does not require prophylactic antibiotics. Prior Anticoagulants: The patient has taken no anticoagulant or antiplatelet agents except for NSAID medication. ASA Grade Assessment: II - A patient with mild systemic disease. After reviewing the risks and benefits, the patient was deemed in satisfactory condition to undergo the procedure. The anesthesia plan was to use monitored anesthesia care (MAC). Immediately prior to administration of medications, the patient was re-assessed for adequacy to receive sedatives. The heart rate, respiratory rate, oxygen saturations, blood pressure, adequacy of pulmonary ventilation, and response to care were monitored throughout the procedure. The physical status of the patient was re-assessed after the procedure. After obtaining informed consent, the endoscope was passed under direct vision. Throughout the procedure, the patient's blood pressure, pulse, and oxygen saturations were monitored continuously. The Endoscope was introduced through the mouth, and advanced to the third part of the duodenum. Small bowel enteroscopy was deemed necessary. The upper GI endoscopy was accomplished without difficulty. The patient tolerated the procedure well. Scope In: 11:23:44 AM Scope Withdrawal Time 0 hours 0 minutes 17 seconds Scope Out: 11:27:25 AM Total Procedure Duration Time 0 hours 3 minutes 41 seconds Findings: The Z-line was irregular and was found 40 cm from the incisors. Biopsies were taken with a cold forceps for histology. Verification of patient identification for the specimen was done. Estimated blood loss was minimal. Suspect gastroparesis due to absence of peristalsis, patient symptoms and retained gastric contents. The exam of the duodenum was otherwise normal. Impression: - Z-line irregular, 40 cm from the incisors. Biopsied. - Gastroparesis. Recommendation: - Discharge patient to home. - Resume previous diet. - Continue present medications. - Await pathology results. Procedure Code(s): --- Professional --- 43455, Small intestinal endoscopy, enteroscopy beyond second portion of duodenum, not including ileum; with biopsy, single or multiple CPT copyright 2021 [employer]. All rights reserved. The codes documented in this report are preliminary and upon top lift cutter review may be revised to meet current compliance requirements. Feliberto Castro DO 08/13/2024 11:34:45 AM This report has been signed electronically. Number of Addenda: 0 Note Initiated On: 08/13/2024 11:13 AM
--- NOTE | 2024-08-13 11:35 | OP.CCLET_ITS ---
08/13/2024 Jess Howe Re : Upper GI endoscopy procedure for Shine Jin Dear Mahamed This procedure was performed on Tuesday, August 13, 2024. My impressions and recommendations are as follows: Impressions : - Z-line irregular, 40 cm from the incisors. Biopsied. - Gastroparesis. Recommendations : - Discharge patient to home. - Resume previous diet. - Continue present medications. - Await pathology results. My findings are described in the full procedure note, which is enclosed. If I can be of further assistance, please feel free to contact me at . Sincerely, Feliberto Castro, 08/13/2024 11:34:45 AM This report has been signed electronically.
--- NOTE | 2024-08-13 11:39 | PCM.POST.ANE ---
Anesthesia: Postop Eval I Current Vital Signs Temperature: 97.3 F Pulse Rate: 78 Blood Pressure: 114/69 Respiratory Rate: 16 Pulse Ox: 98 Oxygen Delivery Method: Room Air Assessment Airway patent: Yes Spontaneous unlabored respirations: Yes Mental status: Awake and Calm nausea: No Vomiting: No Anesthesia Complication: No Fluid Hydration Crystalloid volume administer (ml): 300 Total IV fluid infused: 300 Progress Note Anesthesia document: Postop Eval 1 completed: Yes
--- NOTE | 2024-08-13 12:20 | PCM.POSTANE2 ---
Anesthesia Postop Eval I Sum Postop Eval Completion status Anesthesia document: Postop Eval 1 completed: Yes Anesthesia Postop Eval I Summary Anesthesia Postop Eval I Summary: Anesthesia Postop Eval I: Assessment Summary Airway patent Yes 08/13/24 11:40 [email or web address] Spontaneous unlabored Yes 08/13/24 11:40 [email or web address] respirations Mental status Awake,Calm 08/13/24 11:40 [email or web address] nausea No 08/13/24 11:40 [email or web address] Vomiting No 08/13/24 11:40 [email or web address] Anesthesia Postop Eval I: Fluid Summary Crystalloid volume administer 300 08/13/24 11:40 [email or web address] (ml) Colloids volume administered ( ml) Blood Product volume administered (ml) Total IV fluid infused 300 08/13/24 11:40 [email or web address] Anesthesia Postop Eval I: Summary Notes Anesthesia Complication No 08/13/24 11:40 [email or web address] Anesthesia Complication Comment: Post-operative progress note Anesthesia: Postop Eval II Evaluation Mental status: Awake Pain Level: 0 nausea: No Vomiting: No
== END 2024-08-13 12:43 | disposition home or self-care (01) ==
LOC: EN 10:10 → AC 10:11
PROVIDERS: PCP Nurse Practitioner Family; Referring Provider Nurse Practitioner Family; Visit Provider Internal Medicine Gastroenterology
PROC: 0DJ08ZZ Inspection of Upper Intestinal Tract, Via Natural or Artificial Opening Endoscopic (ICD-10-PCS; CPT 43235; principal; 2024-08-13 11:10)
DX: E11.43 Type 2 diabetes mellitus with diabetic autonomic (poly)neuropathy (principal); C61 Malignant neoplasm of prostate; Z79.4 Long term (current) use of insulin; K31.84 Gastroparesis; I10 Essential (primary) hypertension; I25.10 Atherosclerotic heart disease of native coronary artery without angina pectoris; K21.9 Gastro-esophageal reflux disease without esophagitis; Z95.2 Presence of prosthetic heart valve; Z95.5 Presence of coronary angioplasty implant and graft; Z79.02 Long term (current) use of antithrombotics/antiplatelets; Z79.82 Long term (current) use of aspirin; Z79.85 Long-term (current) use of injectable non-insulin antidiabetic drugs; Z79.899 Other long term (current) drug therapy; Z87.891 Personal history of nicotine dependence
CPT/HCPCS: 44361; 82962; 88305; J2405

== ENCOUNTER → 2024-10-30 | Outpatient (CLI) | payer MEDICARE, SELFPAY ==
[2021-07-27 06:46] VITALS: BMI 32.3
[2024-10-30 12:34] LABS: Hematocrit 33.7 % (40-54); Hemoglobin 10.9 g/dL (13.0-16.5); Immature Granulocytes Count 0.110 X10^3/uL (0.0-0.0); Mean Corp Hgb Conc 32.3 g/dL (32-36); Mean Corpuscular Volume 93.9 fL (80-94); Mean Platelet Vol. 10.7 fl (6.2-12.0); NRBC Flagged by Analyzer 0 % (0-5); Platelet Count 172 K/mm3 (150-450); RBC Distribution Width CV 14.2 % (11.6-14.6); RBC Distribution Width SD 49.1 fl (35.1-43.9); Red Blood Count 3.59 M/mm3 (4.6-6.2); White Blood Count 5.4 K/mm3 (4.4-11.0)
[2024-10-30 13:01] LABS: Cholesterol 165 mg/dL (<=200); Low Density Lipoprotein Calc. 54 mg/dL; Triglycerides 347 mg/dL; Very Low Density Lipoprotein 69 mg/dL (5-40); cholesterol:hdl ratio screen 3.94
== END | disposition home or self-care (01) ==
LOC: MTLAB 09:14
PROVIDERS: PCP Nurse Practitioner Family; Referring Provider Nurse Practitioner Family; Visit Provider Nurse Practitioner Family
DX: D64.9 Anemia, unspecified (principal); E78.1 Pure hyperglyceridemia
CPT/HCPCS: 36415; 80061; 85025

== ENCOUNTER → 2024-11-28 | Outpatient (CLI) | payer MEDICARE, SELFPAY ==
[2021-07-27 06:46] VITALS: BMI 32.3
[2024-11-28 12:43] LABS: Anion Gap 12 (5-15); BUN 28 mg/dL (4-19); BUN/Creat Ratio 20.1 RATIO (10-20); Calcium,Total 9.2 mg/dL (7.6-11.0); Carbon Dioxide 26.3 mmol/L (21.0-32.0); Chloride 102 mmol/L (98-108); Glucose 166 mg/dL (70-99); Potassium 4.0 mmol/L (3.3-5.1)
== END | disposition home or self-care (01) ==
LOC: MTLAB 10:08
PROVIDERS: PCP Nurse Practitioner Family; Referring Provider Nurse Practitioner Family; Visit Provider Nurse Practitioner Family
DX: N18.30 Chronic kidney disease, stage 3 unspecified (principal)
CPT/HCPCS: 36415; 80048

== ENCOUNTER → 2024-12-06 | Outpatient (CLI) | payer MEDICARE, SELFPAY ==
[2021-07-27 06:46] VITALS: BMI 32.3
[2024-12-06 12:53] LABS: PSA,Total- Diagnostic < 0.02 ng/mL (0.00-4.00)
== END | disposition home or self-care (01) ==
LOC: MTLAB 10:46
PROVIDERS: PCP Nurse Practitioner Family; Referring Provider Urology; Visit Provider Urology
DX: C61 Malignant neoplasm of prostate (principal)
CPT/HCPCS: 36415; 84153

== ENCOUNTER → 2024-12-20 | Outpatient (CLI) | payer MEDICARE, SELFPAY ==
[2021-07-27 06:46] VITALS: BMI 32.3
[2024-12-20 15:08] LABS: Hematocrit 34.4 % (40-54); Hemoglobin 11.5 g/dL (13.0-16.5); Immature Granulocytes Count 0.070 X10^3/uL (0.0-0.0); Mean Corp Hgb Conc 33.4 g/dL (32-36); Mean Corpuscular Volume 89.8 fL (80-94); Mean Platelet Vol. 10.4 fl (6.2-12.0); NRBC Flagged by Analyzer 0 % (0-5); Platelet Count 134 K/mm3 (150-450); RBC Distribution Width CV 14.2 % (11.6-14.6); RBC Distribution Width SD 45.6 fl (35.1-43.9); Red Blood Count 3.83 M/mm3 (4.6-6.2); White Blood Count 6.0 K/mm3 (4.4-11.0)
[2024-12-20 15:48] LABS: Anion Gap 13 (5-15); BUN 26 mg/dL (4-19); BUN/Creat Ratio 16.8 RATIO (10-20); Calcium,Total 9.2 mg/dL (7.6-11.0); Carbon Dioxide 24.2 mmol/L (21.0-32.0); Chloride 103 mmol/L (98-108); Glucose 284 mg/dL (70-99); Potassium 4.0 mmol/L (3.3-5.1)
== END | disposition home or self-care (01) ==
LOC: MTLAB 13:56
PROVIDERS: PCP Nurse Practitioner Family; Referring Provider Nurse Practitioner Gerontology; Visit Provider Nurse Practitioner Gerontology
DX: R53.83 Other fatigue (principal)
CPT/HCPCS: 36415; 80048; 84443; 85025

== ENCOUNTER → 2025-01-22 | Outpatient (CLI) | payer MEDICARE, SELFPAY ==
[2021-07-27 06:46] VITALS: BMI 32.3
--- NOTE | 2025-01-22 12:39 | ECHOD_ITS ---
Reason For Study Reason For Study: VALVE REPLACEMENT Procedure This was a 2D Doppler, Color Flow transthoracic echocardiogram. Exam performed in department. Left Ventricle Normal LV size. Left ventricular systolic function is normal. The left ventricular ejection fraction is 55 %. Stage 1 diastolic dysfunction. No regional wall motion abnormalities noted. Right Ventricle Normal RV size. Normal systolic function. Atria Normal left atrium. Normal right atrium. Mitral Valve There is mild mitral annular calcification. Mild (1+) eccentric mitral valve insufficiency. Tricuspid Valve Normal tricuspid valve. Mild (1+) tricuspid valve insufficiency. Pulmonary artery systolic pressure is 20 mmHg. Aortic Valve Peak aortic valve gradient 22 mmHg. Mean aortic valve gradient 14 mmHg. Bioprosthetic aortic valve. Pulmonic Valve Normal pulmonic valve. Great Vessels Normal aortic root. The pulmonary artery is normal size. Inferior vena cava collapse with sniff. Pericardium/Pleural No pericardial effusion. MMode/2D Measurements & Calculations LVIDd: 5.7 cm IVSd: 1.0 cm LVOT diam: 2.3 cm LVIDs: 3.9 cm LVPWd: 1.2 cm LVOT area: 4.0 cm2 RVDd: 4.1 cm FS: 31.8 % Ao root diam: 4.2 cm LAV(MOD-bp): 78.4 ml LVAd ap4: 27.7 cm2 LAV(MOD-bp) Indexed: 33.7 ml/m2 LVLd ap4: 8.7 cm LAV(MOD-sp2): 72.1 ml EDV(MOD-sp4): 71.3 ml LAV(MOD-sp4): 74.6 ml EDV(sp4-el): 74.6 ml LVAs ap4: 13.9 cm2 LVLs ap4: 7.2 cm ESV(MOD-sp4): 22.0 ml ESV(sp4-el): 22.6 ml EF(MOD-sp4): 69.1 % EF(sp4-el): 69.7 % LVAd ap2: 29.5 cm2 SV(MOD-sp4): 49.3 ml SV(MOD-sp2): 55.1 ml LVLd ap2: 8.7 cm SI(MOD-sp4): 21.2 ml/m2 SI(MOD-sp2): 23.7 ml/m2 EDV(MOD-sp2): 80.5 ml EDV(sp2-el): 84.7 ml LVAs ap2: 14.5 cm2 LVLs ap2: 7.1 cm ESV(MOD-sp2): 25.4 ml ESV(sp2-el): 25.1 ml EF(MOD-sp2): 68.5 % SV(sp4-el): 52.0 ml LA dimension(2D): 3.8 cm LA A4 area: 25.0 cm2 RA A4 area: 20.4 cm2 TAPSE: 1.0 cm Time Measurements MV dec time: 0.32 sec Doppler Measurements & Calculations MV E max vasiliy: 69.1 cm/sec Lat Peak E' Vasiliy: 8.9 cm/sec Med Peak E' Vasiliy: 7.1 cm/sec MV A max vasiliy: 88.9 cm/sec E/E' lat: 7.8 E/E' med: 9.7 MV E/A: 0.78 Ao V2 max: 235.8 cm/sec LV V1 max: 86.5 cm/sec MV dec slope: 214.2 cm/sec2 Ao max P.3 mmHg LV V1 max P.0 mmHg Ao V2 mean: 178.5 cm/sec LV V1 mean P.0 mmHg Ao mean P.8 mmHg LV V1 mean: 68.1 cm/sec Ao V2 VTI: 49.1 cm LV V1 VTI: 20.7 cm AV (velocity ratio): 0.42 CHEMA(I,D): 1.7 cm2 CHEMA(V,D): 1.5 cm2 SV(LVOT): 83.3 ml PA V2 max: 98.6 cm/sec TR max vasiliy: 200.5 cm/sec TR max P.1 mmHg ECHO/Echo Complete Interpretation Summary Normal LV size. Left ventricular systolic function is normal. The left ventricular ejection fraction is 55 %. Stage 1 diastolic dysfunction. Bioprosthetic aortic valve. Mean aortic valve gradient 14 mmHg. Ordering Physician: Marcy Khan Referring Physician: Melinda Irby Performed By: Christine Enrique RDCS
== END | disposition home or self-care (01) ==
LOC: CVS 12:38
PROVIDERS: PCP Nurse Practitioner Family; Referring Provider Nurse Practitioner Gerontology; Visit Provider Nurse Practitioner Gerontology
DX: I35.1 Nonrheumatic aortic (valve) insufficiency (principal)
CPT/HCPCS: 93306